=== PATIENT | female | born 1935 | race Caucasian/White ===

== ENCOUNTER 2017-03-26 08:02 | Inpatient (IN) ==
--- NOTE | 2017-03-26 08:55 | Emergency Department Note ---
Arrival - Arrival Chief Complaint: Extremity Problem Stated Complaint: right hip/groin area pain/low back pain ED Nursing Triage Note: pt saw dr pollack about a week ago for a shot in the knee. pt wwas told if she had pain in the groin to call him. pt states pain got really bad last night and pain pills are not helping Mode of Arrival: Wheelchair Limitations: No Limitations Source: Patient, Family - History of Present Illness HPI Narrative: Patient is a 81-year-old white female who underwent an injection last week by Dr. Pollack's office. She was instructed that if she began to have right hip pain that she was to call Dr. Pollack's office. She began having right hip pain but did not call Dr. Santamaria's office she simply came to the emergency department. Patient complains of difficulty moving her lower extremities. She also complains of some abdominal pain and low back pain. She is routinely followed by pain management. She denies any chills or fever, nausea or vomiting , melena, hematochezia, or hematemesis. Patient has had some difficulty getting out of the chair to the bed. She has difficulty with lower extremity movement. Onset (ago): day(s) (2) Consistency: constant Severity: moderate Allergies/Adverse Reactions: Allergies Allergy/AdvReac Type Severity Reaction Status Date / Time Erythromycin Base Allergy Unknown/Unable Verified 03/26/17 08:12 to obtain Penicillins Allergy Unknown/Unable Verified 03/26/17 08:12 to obtain Review of System - Review of System 12 point system: reviewed and no additional remarkable complaints except as stated Medical,Surgical,& Family Hx - Medical History Cardio: History of: Hypertension Musculoskeletal: History of: Musculoskeletal Problems (arthritis) - Social History Smoking Status: Never smoker Frequency of Alcohol Use: None Type of Drug Use: None Exam Vital Signs: Vital Signs Temperature 96.1 F L 03/26/17 08:51 Pulse Rate 78 03/26/17 10:00 Respiratory Rate 20 03/26/17 10:00 Blood Pressure 92/58 03/26/17 10:00 O2 Sat by Pulse Oximetry 96 03/26/17 10:00 GENERAL: This is a well-nourished well-developed white female in no apparent distress. VITAL SIGNS: Reviewed SKIN: Skin is warm and dry. No rash. EXTREMITIES: Patient has full range of motion without tenderness. There is no pedal edema. Range of motion the right hip without pops clicks or crepitus. NEUROLOGIC: Awake alert and oriented 4. Cranial nerves II through XII are grossly intact. Motor is 5 over 5 in all extremities bilaterally. Course - Consultations Consultation #1: Discussed with Dr. Winter. Patient will be admitted to his service. Initial orders written for him. He will assume care upon patient's arrival to [facility]. Time: 10:31 Results - Labs CBC & BMP: 03/26/17 09:25 03/26/17 09:25 Lab Results: I have reviewed the patients labs Labs: Laboratory Tests 03/26/17 09:24 Urine pH 5.0 Ur Specific [place] 1.010 Urine Leukocytes Large H Urine WBC 708 - Diagnostic Findings Procedure: X-ray: image reviewed by me (CT of the thoracic spine: Multilevel DDD without any evidence of cord compression. CT lumbar spine: Multilevel DDD without any evidence of cord compression.) Disposition Clinical Impression: Right hip pain following injection, Bilateral leg weakness, Acute renal failure , UTI (urinary tract infection), Chronic low back pain Case discussed with: patient, patient's family Disposition: Still a Patient Condition: Stable Additional Instructions: Patient is to go to Dr. Santamaria's office. March 28 @12:30. Referrals: Lupillo Pollack Jr., MD [Physician] - 03/28/17 12:30 pm Time of Disposition: 08:55
[2017-03-26] MEDS ORDERED: SODIUM CHLORIDE 0.9% 1,000 ML IV STA (09:10)
[2017-03-26 09:40] LABS: Basophils # 0.1 10*3/uL (0.0-0.2); Basophils % 0.2 % (0.0-0.8); Eosinophils % 0.1 % (0.00-10.9); Hematocrit 37.5 VOL% (35.7-47.0); Hemoglobin 12.4 GM/DL (12.0-16.0); Immature Granulocytes % 4.9 %; Immature Granulocytes Absolute 1.11 #; Lymphocytes # 1.7 10*3/uL (1.4-4.0); Lymphocytes % 7.4 % (21.3-54.2); Mean Corpuscular HGB Conc 33.1 GM/DL (32-36); Mean Corpuscular Hemoglobin 31 PG (27-34); Mean Corpuscular Volume 93.1 FL (87-102); Mean Platelet Volume 10.8 FL (9.6-12.0); Monocytes # 0.3 10*3/uL (0.11-0.8); Monocytes % 1.3 % (1.7-12.7); Neutrophils # 19.3 10*3/uL (1.4-7.4); Neutrophils % 86.1 % (38.7-73.9); Platelet Count 157 T/CUMM (130-400); Red Blood Count 4.03 MC/CUMM (3.8-5.5); Red Cell Distribution Width 14.7 % (9.3-17.3); White Blood Count 22.4 T/CUMM (4-12)
[2017-03-26 10:00] LABS: Band Neutrophils 11 % (0-10); Lymphocytes 6 % (20-55); Metamyelocytes 2 %; Segmented Neutrophils 76 % (50-85); Total Cells Counted 100
--- NOTE | 2017-03-26 10:00 | CT Report ---
CT thoracic spine wo con Indication: Back pain Comparison: None Technique: Multiple axial tomographic images of the thoracic spine were obtained without the use of intravenous contrast. Coronal and sagittal reformatted images provided. Findings: Anterior fusion hardware noted at C6-7. Posterior facet arthropathy of the lower cervical spine. 1 mm anterolisthesis of C7 upon T1 and T1 upon T2. Thoracic vertebral body heights and alignment are otherwise maintained. There is minimal scattered degenerative change without convincing spinal canal or neuroforaminal narrowing within the thoracic region. Atherosclerotic calcifications within the coronary arteries and great vessels. Bilateral apical scarring and mild emphysematous change. IMPRESSION: No convincing CT evidence of acute injury involving the osseous thoracic spine. Other/detailed findings as above. The CT exam was performed using one or more of the following dose reduction techniques: Automated exposure control, adjustment of the mA and/or kV according to patient size, or use of iterative reconstruction technique. PROCEDURE INTERPRETED AT [facility] DEPARTMENT OF RADIOLOGY Final Report Signed by: Dr John Boone
[2017-03-26 10:01] LABS: Hypochromasia 1+; Microcytosis Slight; Platelet Estimate Adequate
--- NOTE | 2017-03-26 10:02 | CT Report ---
Exam: CT lumbar spine without contrast Date: 03/26/2017 Comparison: Lumbar spine x-ray 09/14/2013, CT abdomen pelvis 04/15/2013 Reason: Back pain, history of degenerative disc disease Technique: Axial images of the lumbar spine were obtained without the use of contrast. Sagittal reformatted images were also acquired. Total DLP is 808.70 mGy*cm. Findings: Straightening of the lumbar spine. Progressive sclerosis and osteophytes with disc space narrowing at L4-L5. Chronic appearing Schmorl's nodes with no acute fracture. Vascular calcifications with prior AAA repair. Incomplete evaluation the aorta which measures 31 mm in transverse diameter. Right hydronephrosis with dilatation of the visualized right ureter measuring 14 mm in diameter. Incomplete evaluation of the ureter. Right perinephric fluid and soft tissue stranding identified. At T12-L1, no spinal canal stenosis or neuroforaminal narrowing is identified. At L1-L2, no spinal canal stenosis or neuroforaminal narrowing is identified. At L2-L3, minimal disc bulging with no spinal stenosis or foraminal stenosis. Degenerative changes in the facet joints. At L3-L4, diffuse osteophyte/disc complex which compresses the thecal sac and extends posterior laterally bilaterally. Minimal spinal stenosis and bilateral foraminal size. Degenerative changes in the facet joints. At L4-L5, diffuse osteophyte/disc complex which compresses the thecal sac and extends posterior laterally bilaterally. Minimal spinal stenosis with minimal to moderate bilateral foraminal stenosis. Degenerative changes in the facet joints. At L5-S1, diffuse osteophyte/disc complex which contacts the thecal sac. No spinal stenosis or foraminal stenosis. Degenerative changes in the facet joints. Impression: No acute fracture. Multilevel DDD as above noted. Incomplete evaluation the aorta with prior AAA repair. The aorta measures approximately 31 mm in transverse diameter with no evidence definite leakage. Significant right hydronephrosis with incomplete evaluation of the right ureter. Follow-up CT may be helpful for further evaluation. This CT exam was performed using one or more of the following dose reduction techniques: Automated exposure control, adjustment of the MA and/or KV according to patient size, or use of iterative reconstruction technique. PROCEDURE INTERPRETED AT [facility] DEPARTMENT OF RADIOLOGY Final Report Signed by: Dr. Kamini Elizabeth
[2017-03-26 10:04] LABS: Apearance,Urine CLOUDY (Clear); Bacteria,Urine Many /HPF (Few); Bilirubin,Urine Negative (Negative); Blood, Urine Moderate mg/dL (Negative); Glucose,Urine (UA) Negative (Negative); Ketones,Urine Negative (Negative); Nitrite,Urine Negative (Negative); Protein,Urine 100 MG/DL; Squamous Epithelial Cell,Urine Occasional /HPF (0-10); Urine Urobilinogen < 2.0 EU/DL (0.2-1.0); WBC,Urine 708 /HPF (0-6)
[2017-03-26 10:06] LABS: Urine Color Dark Yellow (Yellow)
[2017-03-26 10:07] LABS: Albumin 2.8 G/DL (3.4-5.0); Bilirubin,Total 1.6 MG/DL (0.2-1.0); Calcium 7.9 MG/DL (8.5-10.1); Potassium 3.2 MMOL/L (3.5-5.1); Total Protein 7.6 G/DL (6.4-8.3)
[2017-03-26] MEDS ORDERED: LEVOFLOXACIN INJ 500 MG in PREMIX 1 EACH IV STA (10:21)
[2017-03-26] MEDS ORDERED: LEVOFLOXACIN INJ 100 ML IV ONE (10:41)
[2017-03-26] MEDS ORDERED: ACETAMINOPHEN 325 MG TABLET PO PRN (12:31)
[2017-03-26] MEDS ORDERED: SODIUM CHLORIDE 0.9% 1,000 ML IV SCH (13:00)
--- NOTE | 2017-03-26 14:39 | Ultrasound Report ---
Exam: US renal Bilateral Date: 03/26/2017 12:31 PM Comparison: 06/04/2013 Indication: Acute renal failure Technique:[Multiple transabdominal real-time scans were obtained of the kidneys and urinary bladder. Color-flow scans obtained. Ultrasound images were captured and stored.] Findings: Right kidney measures 88 x 52 x 45 mm compared to 86 x 48 x 44 mm. Left kidney measures 83 x 54 x 44 mm compared to 100 x 69 x 41 mm. Minimal right hydronephrosis. 14 mm midpole and 30 mm lower pole simple appearing left renal cysts. Bilateral ureteral jets are noted in the urinary bladder which measures 62 x 56 58 mm. No definite bladder mass identified. Impression: Persistent right and progressive left cortical loss. Inhomogeneous echogenicity which can be seen with medical renal disease. Minimal right hydronephrosis with persistent left renal cysts. No definite urinary bladder pathology noted. PROCEDURE INTERPRETED AT [facility] DEPARTMENT OF RADIOLOGY Final Report Signed by: Dr. Kamini Elizabeth
[2017-03-26] MEDS: MORPHINE ER 30 MG TABLET PO SCH (18:09)
[2017-03-26] MEDS: cloNIDine 0.1 MG TABLET PO SCH (18:10)
[2017-03-26] MEDS: LEVOFLOXACIN INJ 750 MG in PREMIX 1 EACH IV SCH (18:37)
[2017-03-26] MEDS: SODIUM CHLOR 0.9% KCL 20 MEQ 20 MEQ/1,000 ML BAG IV SCH (18:37)
[2017-03-26] MEDS: ONDANSETRON 4 MG/2 ML VIAL IV PRN (21:54)
[2017-03-26] MEDS: DOCUSATE SODIUM 100 MG CAPSULE PO SCH (21:54)
[2017-03-26] MEDS: ALPRAZolam 0.5 MG TABLET PO SCH (21:54)
[2017-03-26] MEDS: NAPROXEN EC 500 MG TABLET PO SCH (21:55)
[2017-03-26] MEDS: CARVEDILOL 6.25 MG TABLET PO SCH (21:55)
[2017-03-26] MEDS: PRIMIDONE 50 MG TABLET PO SCH (21:55)
[2017-03-27] MEDS: MORPHINE ER 30 MG TABLET PO SCH ×2 (05:13→21:19)
[2017-03-27] MEDS: SODIUM CHLOR 0.9% KCL 20 MEQ 20 MEQ/1,000 ML BAG IV SCH ×2 (05:14→15:56)
[2017-03-27 06:37] LABS: Basophils # 0.1 10*3/uL (0.0-0.2); Basophils % 0.3 % (0.0-0.8); Hematocrit 28.6 VOL% (35.7-47.0); Immature Granulocytes % 11.2 %; Immature Granulocytes Absolute 4.18 #; Lymphocytes # 1.6 10*3/uL (1.4-4.0); Lymphocytes % 4.4 % (21.3-54.2); Mean Corpuscular HGB Conc 32.5 GM/DL (32-36); Mean Corpuscular Hemoglobin 31 PG (27-34); Mean Corpuscular Volume 93.8 FL (87-102); Monocytes # 1.7 10*3/uL (0.11-0.8); Monocytes % 4.5 % (1.7-12.7); Neutrophils # 29.8 10*3/uL (1.4-7.4); Neutrophils % 79.6 % (38.7-73.9); Red Cell Distribution Width 15.4 % (9.3-17.3)
[2017-03-27 07:10] LABS: Albumin 2.1 G/DL (3.4-5.0); Bilirubin,Total 0.8 MG/DL (0.2-1.0); Calcium 6.3 MG/DL (8.5-10.1); Calcium 6.4 MG/DL (8.5-10.1); Free T4 (Free Thyroxine) 1.57 NG/DL (0.76-1.46); Hemoglobin 9.3 GM/DL (12.0-16.0); Magnesium 1.1 MG/DL (1.8-2.4); Osmolality,Calculated 275.1 MOS/KG (273-304); Osmolality,Calculated 277.1 MOS/KG (273-304); Potassium 4.5 MMOL/L (3.5-5.1); Potassium 4.8 MMOL/L (3.5-5.1); Red Blood Count 3.05 MC/CUMM (3.8-5.5); Risk Ratio 2.56; Thyroid Stimulating Hormone 2.64 uIU/ml (0.358-3.74); Total Protein 5.5 G/DL (6.4-8.3); VLDL CHOLESTEROL 43.2 MG/DL; White Blood Count 37.4 T/CUMM (4-12)
[2017-03-27 07:11] LABS: Platelet Count 114 T/CUMM (130-400)
[2017-03-27 07:20] LABS: Anisocytosis 1+; Band Neutrophils 25 % (0-10); Lymphocytes 2 % (20-55); Macrocytosis 1+; Metamyelocytes 6 %; Platelet Estimate Decreased; Segmented Neutrophils 64 % (50-85); Total Cells Counted 100
--- NOTE | 2017-03-27 08:23 | Family Practice History&Phys ---
Assessment and Plan (1) Acute renal failure Status: Acute Assessment and plan: Patient's creatinine has gone from 1.04 to 3.1 since November. Have consulted nephrology and will order a abdominal CT to make sure that there is no obstruction causing the renal insufficiency Current Visit: Yes (2) UTI (urinary tract infection) Status: Acute Assessment and plan: Patient appears to have an acute urinary tract infection. I have obtained a urine C&S as well as blood cultures. I started on a renal dose of Levaquin for empiric coverage. Current Visit: Yes (3) right ureteral obstruction Status: Acute Current Visit: Yes (4) Chronic low back pain Status: Chronic Assessment and plan: Patient has had chronic ongoing back pain and radicular pain. He is treated by Dr. Mitchell at the pain clinic Current Visit: Yes (5) previous renal calculi Status: Chronic Assessment and plan: No active stone noted at present, has right hydronephrosis Current Visit: Yes (6) Bilateral leg weakness Status: Chronic Assessment and plan: This appears to be chronic in nature. She is followed at the pain clinic and patient states that there has been some progressive weakness in lower extremities but no acute change. We will consult Dr. Mitchell and let him decide if he needs a current MRI. CT of the lumbar spine did not reveal any acute changes Current Visit: Yes (7) peripheral vascular disease Status: Chronic Assessment and plan: Stable at present Current Visit: Yes (8) chronic obstructive pulmonary disease Status: Chronic Assessment and plan: Stable at present Current Visit: Yes (9) obstructive sleep apnea Status: Chronic Assessment and plan: Stable on present treatment Current Visit: Yes (10) essential tremor Status: Chronic Assessment and plan: Tremor has been fairly stable on present meds Current Visit: Yes (11) history DVT Status: Chronic Assessment and plan: Stable at present Current Visit: Yes (12) Hypertension Status: Chronic Assessment and plan: Blood pressure has been stable on present medications Current Visit: Yes History of Present Illness Chief complaint: Abdominal pain and back pain History of present illness: Ms. Kingston is a 81 year old female 81-year-old white female well known to me seen in emergency room complaining of onset of lower abdominal pain with severe back pain and weakness in her lower extremities. She is being treated at the pain clinic by Dr. Mitchell for chronic back pain. Emergency room physician felt that she had significant weakness in her lower extremities but patient and feels that the weakness is been present for some time. CT of the lumbar spine reveal no acute changes. She feels she has some weakness in her lower extremities this a.m. but feels that it has not changed in the last 6-[address] Mitchell is done frequent procedures on her back. Main complaint this a.m. is some lower abdominal pain and bloating. She has passed flatus but states that her abdomen is bloated in the lower quadrant. Her lab on admission revealed a WBC of 22,400 but patient had received a steroid injection to her right hip 1 week ago. Actually is increased to 37,400 this a.m. Hemoglobin is 9 3 hematocrit is 28.3 which is decreased from admission. She was also noted to have a creatinine on admission of 2.9 which is increased to 3.1 this a.m. recent lab in November her creatinine was 1.04. She was noted to have a right hydronephrosis on lumbar CT that her renal ultrasound did not comment on the hydronephrosis. She does have findings consistent with a urinary tract infection but could also be present was a renal calculi on the right side. Patient has had several episodes of nausea vomiting during the night but no nausea this a.m. Her abdomen is soft flat with active bowel sounds. Some diffuse hypogastric tenderness negative CVA tenderness. In view of history patient was admitted for further evaluation therapy. Had initially planned to do an MRI today of her lumbar spine but after reviewing her history will consult Dr. Mitchell and let him decide if MRI as needed. I plan to proceed with workup for abdominal complaints. Home Medications Medication Instructions Recorded Confirmed Type ALPRAZolam [Alprazolam] 2 mg PO BEDTIME 03/26/17 03/26/17 History Amlodipine Besylate/Benazepril 1 each PO QAM 03/26/17 03/26/17 History [Amlodipine-Benazepril 10-20 mg] Carvedilol [Carvedilol] 6.25 mg PO BID 03/26/17 03/26/17 History Donepezil HCl [Donepezil HCl] 1 mg PO QAM 03/26/17 03/26/17 History Furosemide [Furosemide] 4 mg PO QAM 03/26/17 03/26/17 History Hydrocodone/Acetaminophen [[place] 1 each PO TID PRN 03/26/17 03/26/17 History 10-325 Tablet] Morphine Sulfate [Morphine Sulfate 30 mg PO Q12H 03/26/17 03/26/17 History ER] Omeprazole [Omeprazole] 40 mg PO QAM 03/26/17 03/26/17 History Primidone [Primidone] 100 mg PO TID 03/26/17 03/26/17 History RX: Aspirin EC Tab 325 mg PO QAM 03/26/17 03/26/17 History RX: Estradiol Tab [Estrace Tab] 2 mg PO QAM 03/26/17 03/26/17 History RX: Naproxen EC [EC Naprosyn] 500 mg PO BID 03/26/17 03/26/17 History cloNIDine TAB [Catapres Tab] 0.1 mg PO QAM 03/26/17 03/26/17 History cloNIDine TAB [Catapres Tab] 0.2 mg PO QPM 03/26/17 03/26/17 History Allergies Allergy/AdvReac Type Severity Reaction Status Date / Time Erythromycin Base Allergy Unknown/Unable Verified 03/26/17 08:12 to obtain Penicillins Allergy Unknown/Unable Verified 03/26/17 08:12 to obtain Medical,Surgical,& Family Hx - Medical History Cardio: History of: Hypertension, PVD Endocrine: History of: Dyslipidemia Rheumatology: History of;: Rheumatological Problems Respiratory: History of: COPD Genitourinary: History of: Kidney Stones Gastrointestinal: History of: GERD Musculoskeletal: History of: Back/Neck Problems, Degenerative Disk Disease, Musculoskeletal Problems (arthritis) Hematology: No history of: Blood Transfusion Reaction Other: History of: Miscellaneous Medical Problems (hist. DVT, restless leg syndrome, obstructive sleep apnea, essential tremor) - Surgical History HEENT Surgeries: Surgical HX of: Eye Surgery (catracts) Abdominal Surgeries: Surgical HX of: Abdominal Surgery (hist, abdomenal surgery, gallbladder), Appendectomy Reproductive Surgeries: Surgical HX of;: Breast Surgery, Hysterectomy, Tubal Ligation Orthopedic Surgeries: Surgical HX of;: Orthopedic Surgery (arthroscopic both knees) - Family History Family History: Reports;: Family Hypertension Denies;: Family Stroke - Social History Smoking Status: Former smoker Have you smoked in the last 12 months: No Frequency of Alcohol Use: None Type of Drug Use: None Marital Status: Lives With:: Spouse Exam - Constitutional Vitals: Period Temp Pulse Resp BP Sys/[place] Pulse Ox Last 24 Hr 96.1 F-97.5 F 75-99 15-24 79-121/37-72 96-100 General appearance: mild distress - Head Head exam: Present: normal inspection - Eye Pupils: Present: JESSE - ENT ENT exam: Present: normal exam - Neck Neck exam: Present: normal inspection - Respiratory Respiratory exam: Present: clear to auscultation bilaterally - Cardiovascular Cardiovascular exam: Present: irregular rhythm - GI/Abdominal GI/Abdominal exam: Present: hyperactive bowel sounds, tenderness, soft - Extremities Exam Extremities exam: Present: full ROM - Back Exam Back exam: Present: muscle spasm, vertebral tenderness, other (Diffuse tenderness over the entire lumbar region the spine) - Neurological Exam Neurological exam: Present: alert - Psychiatric Psychiatric exam: Present: normal affect - Skin Skin exam: Present: normal color Results - Labs CBC & BMP: 03/27/17 05:53 03/27/17 05:53
[2017-03-27] MEDS ORDERED: NON-FORMULARY MEDICATION (Omeprazole [Omeprazole] 40 MG) PO SCH (09:00)
[2017-03-27] MEDS ORDERED: DONEPEZIL 10 MG TABLET PO SCH (09:00)
[2017-03-27] MEDS: ONDANSETRON 4 MG/2 ML VIAL IV PRN ×3 (09:19→21:20)
[2017-03-27 10:41] LABS: Apearance,Urine Clear (Clear); Bacteria,Urine Many /HPF (Few); Blood, Urine Trace mg/dL (Negative); Glucose,Urine (UA) Negative (Negative); Hyaline Casts,Urine 5 /LPF (0-3); Ketones,Urine Negative (Negative); Mucus,Urine Occasional /LPF (Occasional); Nitrite,Urine Negative (Negative); Protein,Urine 100 MG/DL; RBC,Urine 1 /HPF (0-4); Squamous Epithelial Cell,Urine Few /HPF (0-10); WBC,Urine 3 /HPF (0-6)
[2017-03-27 10:42] LABS: Bilirubin,Urine Moderate mg/dL (Negative); Urine Color Dark Yellow (Yellow)
--- NOTE | 2017-03-27 12:31 | CT Report ---
Referring physician: Derick Winter EXAM: CT abdomen and pelvis without contrast DATE: 03/27/2017 COMPARISON: 04/15/2013, CT lumbar spine 03/26/2017 REASON: Generalized abdominal pain with right hydronephrosis TECHNIQUE: Axial images of the abdomen and pelvis were obtained without the use of contrast. Oral contrast given. Coronal and sagittal reformatted images were also provided. Total DLP is 401.30 mGy*cm. FINDINGS: The heart is minimally enlarged with cardiac fat pads and coronary artery calcifications. Chronic scarring in the lungs with progressive atelectasis/infiltration with groundglass opacities. The liver is normal in size with no masses or dilated ducts in patient with prior cholecystectomy. The spleen has an unremarkable appearance. Atrophic pancreas with unremarkable adrenal glands. Moderate right hydronephrosis with perinephric fluid/soft tissue stranding. The right ureter is dilated to the level of the upper sacrum with adjacent fluid/soft tissue density involving a 24 mm area. No renal or ureteral calculus is identified. Persistent left renal cysts with the largest measuring 31 mm compared to 29 mm in the lower pole. Prior AAA repair with the aorta measuring 32 mm in diameter compared to 29 mm on the previous exam. Arterial calcifications with no adjacent adenopathy. Mild gaseous distention of the stomach with no significant dilatation of the small bowel. Increased fecal material in the colon with no evidence of diverticulitis, appendicitis free air, or free fluid. Prior hysterectomy with no definite urinary bladder pathology noted. Degenerative changes are present. IMPRESSION: The heart is minimally enlarged with arterial calcifications including coronary artery calcifications. Progressive atelectasis/infiltration with somewhat indeterminate groundglass opacities at the visualized lung bases. Prior cholecystectomy and hysterectomy with atrophic pancreas. Moderate right hydronephrosis with transition zone in the upper sacral location. Adjacent fluid and soft tissue stranding which could be related to obstruction but is difficult to exclude a mass, developing fibrosis, or other pathology. No ureteral calculus is identified. Right retrograde pyelogram may be helpful for further evaluation. Larger probable left renal cysts. Increased fecal material in the colon. The CT exam was performed using one or more of the following dose reduction techniques: Automated exposure control and adjustment of the mA and/or kV according to patient size. PROCEDURE INTERPRETED AT [facility] DEPARTMENT OF RADIOLOGY Final Report Signed by: Dr. Kamini Elizabeth
--- NOTE | 2017-03-27 13:15 | Pain Management Consult Note ---
Assessment and Plan (1) Lumbar degenerative disc disease Problem details: 2-3 week history of increasing back and lower abdominal pain Status: Acute Assessment and plan: 03/27/2017. The patient is very pleasant 81-year-old female well-known to me and is a patient of mine. We treated her low back for lumbar facet arthropathy manage her medically for her lumbar spinal pain. She developed to 3 weeks ago increasing low back pain that radiated into the groin and lower abdominal abdomen bilaterally. She denies any injury. Is a throbbing aching discomfort. CT scan which are reviewed demonstrates degenerative changes and fairly marked collapse at the L4-5 level but no acute changes are seen. No compression fractures are noted. Moderate canal narrowing is present but not severe. At this point I do not think it MRI is medically necessary. Worry about potential of a GI or source of her pain. I will continue to follow with you. y Current Visit: Yes History of Present Illness Chief complaint: Low back and groin pain History of present illness: Ms. Kingston is a 81 year old female with a 2-3 week history of increasing low back and bilateral groin pain. The pain is worse with activity but it remains fairly constant. It interferes with sleep. Is a cramping aching pain. It is a new type of pain for her. She denies any injury. Home Medications Medication Instructions Recorded Confirmed Type ALPRAZolam [Alprazolam] 2 mg PO BEDTIME 03/26/17 03/26/17 History Amlodipine Besylate/Benazepril 1 each PO QAM 03/26/17 03/26/17 History [Amlodipine-Benazepril 10-20 mg] Aspirin EC Tab 325 mg PO QAM 03/26/17 03/26/17 History Carvedilol [Carvedilol] 6.25 mg PO BID 03/26/17 03/26/17 History Donepezil HCl [Donepezil HCl] 1 mg PO QAM 03/26/17 03/26/17 History Estradiol Tab [Estrace Tab] 2 mg PO QAM 03/26/17 03/26/17 History Furosemide [Furosemide] 4 mg PO QAM 03/26/17 03/26/17 History Hydrocodone/Acetaminophen [[place] 1 each PO TID PRN 03/26/17 03/26/17 History 10-325 Tablet] Morphine Sulfate [Morphine Sulfate 30 mg PO Q12H 03/26/17 03/26/17 History ER] Naproxen EC [EC Naprosyn] 500 mg PO BID 03/26/17 03/26/17 History Omeprazole [Omeprazole] 40 mg PO QAM 03/26/17 03/26/17 History Primidone [Primidone] 100 mg PO TID 03/26/17 03/26/17 History cloNIDine TAB [Catapres Tab] 0.1 mg PO QAM 03/26/17 03/26/17 History cloNIDine TAB [Catapres Tab] 0.2 mg PO QPM 03/26/17 03/26/17 History Allergies Allergy/AdvReac Type Severity Reaction Status Date / Time Erythromycin Base Allergy Unknown/Unable Verified 03/26/17 08:12 to obtain Penicillins Allergy Unknown/Unable Verified 03/26/17 08:12 to obtain Medical,Surgical,& Family Hx - Medical History Cardio: History of: Hypertension Musculoskeletal: History of: Musculoskeletal Problems (arthritis) Hematology: No history of: Blood Transfusion Reaction - Surgical History HEENT Surgeries: Surgical HX of: Eye Surgery (catracts) Abdominal Surgeries: Surgical HX of: Abdominal Surgery (hist, abdomenal surgery, gallbladder), Appendectomy Reproductive Surgeries: Surgical HX of;: Breast Surgery, Hysterectomy, Tubal Ligation - Family History Family History: Reports;: Family Hypertension Denies;: Family Stroke - Social History Smoking Status: Never smoker Frequency of Alcohol Use: None Type of Drug Use: None - Constitutional Constitutional: Present: daytime sleepiness - Cardiovascular Cardiovascular: Present: dyspnea on exertion - Gastrointestinal Gastrointestinal: Present: constipation - Genitourinary Genitourinary: Present: flank pain - Musculoskeletal Musculoskeletal: Present: arthralgias, back pain, joint swelling - Neurological Neurological: Present: paresthesias - Endocrine Endocrine: Present: heat intolerance Exam - Constitutional Vitals: Period Temp Pulse Resp BP Sys/[place] Pulse Ox Last 24 Hr 96.8 F-97.5 F 74-99 15-20 95-120/43-55 97-100 General appearance: no acute distress, over weight - Eye Eye exam: Present: EOMI - Neck Neck exam: Present: normal inspection - Respiratory Respiratory exam: Present: clear to auscultation bilaterally - Cardiovascular Cardiovascular exam: Present: RRR - GI/Abdominal GI/Abdominal exam: Present: normal bowel sounds - Back Exam Back exam: Present: vertebral tenderness - Neurological Exam Neurological exam: Present: alert, oriented X3, CN II-XII intact, motor sensory deficit (Slight weakness right foot). Absent: reflexes normal - Skin Skin exam: Present: normal color Results - Labs CBC & BMP: 03/27/17 05:53 03/27/17 05:53 Specialty Discharge - Follow Up or Referrals Follow up with: Lupillo Pollack Jr., MD [Physician] - 03/28/17 12:30 pm
[2017-03-27] MEDS: ESTRADIOL 2 MG TABLET PO SCH (13:44)
[2017-03-27] MEDS: PRIMIDONE 50 MG TABLET PO SCH ×3 (13:44→21:19)
--- NOTE | 2017-03-27 13:45 | Nephrology Consult Note ---
History of Present Illness Chief complaint: ARF History of present illness: Ms. Kingston is a 81 year old female who presented with lower abdominal pain which radiates to her lumbar spine. She has a history of chronic low back pain. She has been followed by Dr. Mitchell. At the time of presentation, she was noted to have renal insufficiency and pyuria. She reports being unable to completely empty her bladder recently. She denies dysuria or hematuria. She has a history of nephrolithiasis with multiple stones in the remote past. She has had no recent stones. She has had hypertension for many years. Blood pressure was low on admission. Home Medications Medication Instructions Recorded Confirmed Type ALPRAZolam [Alprazolam] 2 mg PO BEDTIME 03/26/17 03/26/17 History Amlodipine Besylate/Benazepril 1 each PO QAM 03/26/17 03/26/17 History [Amlodipine-Benazepril 10-20 mg] Aspirin EC Tab 325 mg PO QAM 03/26/17 03/26/17 History Carvedilol [Carvedilol] 6.25 mg PO BID 03/26/17 03/26/17 History Donepezil HCl [Donepezil HCl] 1 mg PO QAM 03/26/17 03/26/17 History Estradiol Tab [Estrace Tab] 2 mg PO QAM 03/26/17 03/26/17 History Furosemide [Furosemide] 4 mg PO QAM 03/26/17 03/26/17 History Hydrocodone/Acetaminophen [[place] 1 each PO TID PRN 03/26/17 03/26/17 History 10-325 Tablet] Morphine Sulfate [Morphine Sulfate 30 mg PO Q12H 03/26/17 03/26/17 History ER] Naproxen EC [EC Naprosyn] 500 mg PO BID 03/26/17 03/26/17 History Omeprazole [Omeprazole] 40 mg PO QAM 03/26/17 03/26/17 History Primidone [Primidone] 100 mg PO TID 03/26/17 03/26/17 History cloNIDine TAB [Catapres Tab] 0.1 mg PO QAM 03/26/17 03/26/17 History cloNIDine TAB [Catapres Tab] 0.2 mg PO QPM 03/26/17 03/26/17 History Allergies Allergy/AdvReac Type Severity Reaction Status Date / Time Erythromycin Base Allergy Unknown/Unable Verified 03/26/17 08:12 to obtain Penicillins Allergy Unknown/Unable Verified 03/26/17 08:12 to obtain Medical,Surgical,& Family Hx - Medical History Cardio: History of: Hypertension Genitourinary: History of: Kidney Stones Musculoskeletal: History of: Musculoskeletal Problems (arthritis) Hematology: No history of: Blood Transfusion Reaction - Surgical History HEENT Surgeries: Surgical HX of: Eye Surgery (catracts) Abdominal Surgeries: Surgical HX of: Abdominal Surgery (hist, abdomenal surgery, gallbladder), Appendectomy Reproductive Surgeries: Surgical HX of;: Breast Surgery, Hysterectomy, Tubal Ligation - Family History Family History: Reports;: Family Hypertension Denies;: Family Stroke - Social History Smoking Status: Never smoker Frequency of Alcohol Use: None Type of Drug Use: None Review of Systems 12 point system: reviewed and no additional remarkable complaints except as stated Exam - Vital Signs Vital signs: Period Temp Pulse Resp BP Sys/[place] Pulse Ox Last 24 Hr 96.8 F-97.5 F 74-99 15-20 95-120/43-55 97-100 Exam: Gen.: Alert and oriented x3. ENT: Pupils equal round reactive to light. EOMs intact. Mucous membranes moist. Neck: Supple. No JVD or bruit. Cardiovascular: Regular rate and rhythm. No murmur rub or gallop Lungs: Clear Abdomen: Soft. Nontender. Mild distention Extremities: No edema Results - Labs CBC & BMP: 03/27/17 05:53 03/27/17 05:53 Assessment and Plan (1) Acute renal failure Status: Acute Assessment and plan: 81-year-old woman with: * ARF. Baseline creatinine 1.26 Nov 2016. She has been relatively hypotensive since admission. Blood pressure medications will be held. ARB is among these. Naprosyn discontinued. She also has right hydronephrosis. Etiology undetermined. She has a history of nephrolithiasis but no stones are visible on CT. She did report difficulty emptying her bladder prior to admission. Urology will be asked to evaluate. * Pyuria. Urine culture pending. Repeat urinalysis today is markedly improved. She is on Levaquin * Hypertension. As noted above her blood pressure is now low. Antihypertensives held * Chronic back pain. Current Visit: Yes (2) Hydronephrosis, right Status: Acute Current Visit: Yes (3) Hypertension Status: Acute Current Visit: Yes (4) Lumbar degenerative disc disease Problem details: 2-3 week history of increasing back and lower abdominal pain Status: Acute Current Visit: Yes (5) UTI (urinary tract infection) Status: Acute Current Visit: Yes Specialty Discharge - Follow Up or Referrals Follow up with: Lupillo Pollack Jr., MD [Physician] - 03/28/17 12:30 pm
[2017-03-27] MEDS: ASPIRIN EC 325 MG TABLET PO SCH (13:47)
[2017-03-27] MEDS: PANTOPRAZOLE 40 MG TABLET PO SCH (13:47)
[2017-03-27] MEDS: DOCUSATE SODIUM 100 MG CAPSULE PO SCH ×2 (13:48→21:20)
[2017-03-27] MEDS: NAPROXEN EC 500 MG TABLET PO SCH (14:09)
[2017-03-27] MEDS: cloNIDine 0.1 MG TABLET PO SCH ×2 (14:10→20:02)
[2017-03-27] MEDS: CARVEDILOL 6.25 MG TABLET PO SCH ×2 (14:11→21:00)
[2017-03-27] MEDS: FUROSEMIDE 40 MG TABLET PO SCH (14:11)
[2017-03-27] MEDS: DONEPEZIL 10 MG TABLET PO SCH (14:57)
--- NOTE | 2017-03-27 15:15 | Urology Consultation ---
History of Present Illness - Data of Consult Consult date: 03/27/17 - Consult Narrative History of present illness: Ms. Kingston is a 81 year old female This 81-year-old white female has been seen in my office previously. She has a past history of stones. She was complaining of right hip pain in the emergency room and was found to have an elevated creatinine. The patient has chronic low back pain which she describes as bilateral in the low back and she goes to the pain clinic for this but she does not have any flank pain. She is got a low residual urine on bladder scan her renal ultrasound shows mild right hydronephrosis and a CT of the abdomen and pelvis shows mild to moderate right hydronephrosis with ureteral dilatation down to the area of the SI joint but no definite stone is seen. She has pyuria on urinalysis and urine culture preliminary results is positive. She is on antibiotics on physical examination there is no CVA tenderness the etiology of the right hydronephrosis is is undetermined at this point. I am going recommend a cystoscopic exam with a right retrograde pyelogram and possible right ureteral stent to see if this will improve her renal function. We will plan this tomorrow if okay medically CC: Derick Winter, DO - Home Medications and Allergies Home Medications: Home Medications Medication Instructions Recorded Confirmed Type ALPRAZolam [Alprazolam] 2 mg PO BEDTIME 03/26/17 03/26/17 History Amlodipine Besylate/Benazepril 1 each PO QAM 03/26/17 03/26/17 History [Amlodipine-Benazepril 10-20 mg] Aspirin EC Tab 325 mg PO QAM 03/26/17 03/26/17 History Carvedilol [Carvedilol] 6.25 mg PO BID 03/26/17 03/26/17 History Donepezil HCl [Donepezil HCl] 1 mg PO QAM 03/26/17 03/26/17 History Estradiol Tab [Estrace Tab] 2 mg PO QAM 03/26/17 03/26/17 History Furosemide [Furosemide] 4 mg PO QAM 03/26/17 03/26/17 History Hydrocodone/Acetaminophen [[place] 1 each PO TID PRN 03/26/17 03/26/17 History 10-325 Tablet] Morphine Sulfate [Morphine Sulfate 30 mg PO Q12H 03/26/17 03/26/17 History ER] Naproxen EC [EC Naprosyn] 500 mg PO BID 03/26/17 03/26/17 History Omeprazole [Omeprazole] 40 mg PO QAM 03/26/17 03/26/17 History Primidone [Primidone] 100 mg PO TID 03/26/17 03/26/17 History cloNIDine TAB [Catapres Tab] 0.1 mg PO QAM 03/26/17 03/26/17 History cloNIDine TAB [Catapres Tab] 0.2 mg PO QPM 03/26/17 03/26/17 History Allergies/Adverse Reactions: Allergies Allergy/AdvReac Type Severity Reaction Status Date / Time Erythromycin Base Allergy Unknown/Unable Verified 03/26/17 08:12 to obtain Penicillins Allergy Unknown/Unable Verified 03/26/17 08:12 to obtain Medical,Surgical,& Family Hx - Medical History Cardio: History of: Hypertension Genitourinary: History of: Kidney Stones Musculoskeletal: History of: Musculoskeletal Problems (arthritis) Hematology: No history of: Blood Transfusion Reaction - Surgical History HEENT Surgeries: Surgical HX of: Eye Surgery (catracts) Abdominal Surgeries: Surgical HX of: Abdominal Surgery (hist, abdomenal surgery, gallbladder), Appendectomy Reproductive Surgeries: Surgical HX of;: Breast Surgery, Hysterectomy, Tubal Ligation - Family History Family History: Reports;: Family Hypertension Denies;: Family Stroke - Social History Smoking Status: Never smoker Frequency of Alcohol Use: None Type of Drug Use: None Exam - Constitutional Vitals: Period Temp Pulse Resp BP Sys/[place] Pulse Ox Last 24 Hr 96.8 F-97.5 F 74-99 15-20 95-120/43-55 97-100 Results - Labs CBC & BMP: 03/27/17 05:53 03/27/17 05:53 Specialty Discharge - Follow Up or Referrals Follow up with: Lupillo Pollack Jr., MD [Physician] - 03/28/17 12:30 pm
[2017-03-27] MEDS ORDERED: MAGNESIUM CHLORIDE 64 MG TABLET PO SCH (21:00)
[2017-03-27] MEDS: MAGNESIUM CHLORIDE 64 MG TABLET PO SCH (21:18)
[2017-03-27] MEDS: ALPRAZolam 0.5 MG TABLET PO SCH (21:20)
[2017-03-27] MEDS: POTASSIUM CHLORIDE INJ 10 MEQ in SODIUM CHLORIDE 0.45% 1,000 ML IV SCH (22:00)
[2017-03-28] MEDS: ONDANSETRON 4 MG/2 ML VIAL IV PRN (02:12)
[2017-03-28] MEDS: POTASSIUM CHLORIDE INJ 10 MEQ in SODIUM CHLORIDE 0.45% 1,000 ML IV SCH (05:28)
[2017-03-28 06:19] LABS: Basophils # 0.1 10*3/uL (0.0-0.2); Basophils % 0.3 % (0.0-0.8); Eosinophils % 0.1 % (0.00-10.9); Immature Granulocytes % 9.3 %; Immature Granulocytes Absolute 3.05 #; Lymphocytes # 2.1 10*3/uL (1.4-4.0); Lymphocytes % 6.5 % (21.3-54.2); Mean Corpuscular HGB Conc 32.1 GM/DL (32-36); Mean Corpuscular Hemoglobin 30 PG (27-34); Mean Corpuscular Volume 93.6 FL (87-102); Monocytes # 1.7 10*3/uL (0.11-0.8); Monocytes % 5.1 % (1.7-12.7); Neutrophils # 25.9 10*3/uL (1.4-7.4); Neutrophils % 78.7 % (38.7-73.9); Platelet Count 112 T/CUMM (130-400); Red Blood Count 2.99 MC/CUMM (3.8-5.5); Red Cell Distribution Width 15.4 % (9.3-17.3); White Blood Count 32.8 T/CUMM (4-12)
[2017-03-28 07:03] LABS: Albumin 2.1 G/DL (3.4-5.0); Bilirubin,Total 2.3 MG/DL (0.2-1.0); Calcium 6.4 MG/DL (8.5-10.1); Free T4 (Free Thyroxine) 1.74 NG/DL (0.76-1.46); Magnesium 1.2 MG/DL (1.8-2.4); Osmolality,Calculated 279.2 MOS/KG (273-304); Potassium 5.1 MMOL/L (3.5-5.1); Thyroid Stimulating Hormone 3.05 uIU/ml (0.358-3.74); Total Protein 5.6 G/DL (6.4-8.3)
[2017-03-28 07:11] LABS: Band Neutrophils 5 % (0-10); Giant Platelets Few; Hypochromasia 1+; Lymphocytes 6 % (20-55); Microcytosis Slight; Platelet Estimate Decreased; Segmented Neutrophils 87 % (50-85); Total Cells Counted 100
--- NOTE | 2017-03-28 07:56 | Family Practice Progress Note ---
Family Practice - PN: Subj Interval history: Patient states that she continues to have generalized malaise. States that she has had some intermittent dyspnea at times. Denies any cough. Denies shortness of breath the time of my evaluation. Her daily weight today is up 10 pounds which I doubt seriously. Her heart was regular rate and rhythm no murmurs Lungs are clear to auscultation at present. Abdomen is soft and nontender. A.m. labs revealed persistent elevated WBC at 32,800 the patient received a steroid injection to her hip last week. A.m. sodium is 134 with a potassium of 5.1. Her creatinine remains elevated at 3.2. She has a urinary tract in traction with gram-negative rods and C&S is pending presently has on empiric Levaquin. Patient is scheduled for a cystoscopic examination this a.m. by Dr. Concepcion. This is to evaluate the right hydronephrosis.. Hopefully there is some correctable obstruction that is causing her renal insufficiency. Will review cystoscopic results and labs later today. Exam (Progress Note) - Constitutional Vitals: Period Temp Pulse Resp BP Sys/[place] Pulse Ox Last 24 Hr 96.2 F-98.6 F 56-89 16-20 95-129/51-77 91-100 Results - Labs CBC & BMP: 03/28/17 05:40 03/28/17 05:40 Assessment and Plan (1) Acute renal failure Status: Acute Assessment and plan: Patient's creatinine has gone from 1.04 to 3.1 since November. Have consulted nephrology and will order a abdominal CT to make sure that there is no obstruction causing the renal insufficiency Current Visit: Yes (2) UTI (urinary tract infection) Status: Acute Assessment and plan: Patient appears to have an acute urinary tract infection. I have obtained a urine C&S as well as blood cultures. I started on a renal dose of Levaquin for empiric coverage. Current Visit: Yes (3) right ureteral obstruction Status: Acute Current Visit: Yes (4) Chronic low back pain Status: Chronic Assessment and plan: Patient has had chronic ongoing back pain and radicular pain. He is treated by Dr. Mitchell at the pain clinic Current Visit: Yes (5) previous renal calculi Status: Chronic Assessment and plan: No active stone noted at present, has right hydronephrosis Current Visit: Yes (6) Bilateral leg weakness Status: Chronic Assessment and plan: This appears to be chronic in nature. She is followed at the pain clinic and patient states that there has been some progressive weakness in lower extremities but no acute change. We will consult Dr. Mitchell and let him decide if he needs a current MRI. CT of the lumbar spine did not reveal any acute changes Current Visit: Yes (7) peripheral vascular disease Status: Chronic Assessment and plan: Stable at present Current Visit: Yes (8) chronic obstructive pulmonary disease Status: Chronic Assessment and plan: Stable at present Current Visit: Yes (9) obstructive sleep apnea Status: Chronic Assessment and plan: Stable on present treatment Current Visit: Yes (10) essential tremor Status: Chronic Assessment and plan: Tremor has been fairly stable on present meds Current Visit: Yes (11) history DVT Status: Chronic Assessment and plan: Stable at present Current Visit: Yes (12) Hypertension Status: Chronic Assessment and plan: Blood pressure has been stable on present medications Current Visit: Yes Specialty Discharge - Follow Up or Referrals Follow up with: Lupillo Pollack Jr., MD [Physician] - 03/28/17 12:30 pm
[2017-03-28] MEDS: SODIUM CHLORIDE 0.45% 1,000 ML IV SCH (08:35)
[2017-03-28] MEDS: CARVEDILOL 6.25 MG TABLET PO SCH ×2 (09:19→20:25)
[2017-03-28] MEDS: MAGNESIUM CHLORIDE 64 MG TABLET PO SCH ×2 (09:19→20:24)
[2017-03-28] MEDS: PANTOPRAZOLE 40 MG TABLET PO SCH (09:24)
[2017-03-28] MEDS: PRIMIDONE 50 MG TABLET PO SCH ×3 (09:24→20:25)
--- NOTE | 2017-03-28 11:35 | Nephrology Progress Note ---
Nephrology - PN: Subj Interval history: No shortness of breath. No nausea. She still has some pelvic discomfort. Exam (PN)-Nephrology - Vital Signs Vital signs: Period Temp Pulse Resp BP Sys/[place] Pulse Ox Last 24 Hr 96.2 F-98.6 F 56-89 16-20 95-129/51-77 91-100 Exam: Gen.: Alert and oriented x3. ENT: Pupils equal round reactive to light. EOMs intact. Mucous membranes moist. Neck: Supple. No JVD or bruit. Cardiovascular: Regular rate and rhythm. No murmur rub or gallop Lungs: Clear Abdomen: Soft. Nontender. Positive bowel sounds. No organomegaly Extremities: No edema - Lab 03/28/17 05:40 03/28/17 05:40 Most recent lab results Calcium 6.4 MG/DL (8.5-10.1) L 03/28/17 05:40 Magnesium 1.2 MG/DL (1.8-2.4) L 03/28/17 05:40 Assessment and Plan (1) Acute renal failure Status: Acute Assessment and plan: 81-year-old woman with: * ARF. Baseline creatinine 1.26 Nov 2016. Creatinine slightly higher today. Potassium higher today. Agree with discontinuation of supplement. * Right hydronephrosis. Agree with plans for cystoscopy with possible ureteral stent. * Pyuria. Urine culture pending. Repeat urinalysis today is markedly improved. She is on Levaquin * Hypertension. Antihypertensives held * Chronic back pain. Current Visit: Yes (2) Hydronephrosis, right Status: Acute Current Visit: Yes (3) Hypertension Status: Chronic Current Visit: Yes (4) Lumbar degenerative disc disease Problem details: 2-3 week history of increasing back and lower abdominal pain Status: Acute Current Visit: Yes (5) UTI (urinary tract infection) Status: Acute Current Visit: Yes Specialty Discharge - Follow Up or Referrals Follow up with: Lupillo Pollack Jr., MD [Physician] - 03/28/17 12:30 pm
--- NOTE | 2017-03-28 11:44 | XRay Report ---
XR chest 2V Date: 03/28/2017 7:50 AM History: Shortness of breath Comparison: 06/09/2013 Technique: PA and lateral chest Findings: The heart is minimally enlarged with minimally progressive diffuse parenchymal findings at the lung bases with persistent blunting of the left costophrenic angle. Stable mediastinum with degenerative changes. Prior cholecystectomy and anterior cervical fusion. Impression: Minimal cardiomegaly with chronic scarring. Minimal atelectasis/edema/infiltration at the lung bases with chronic blunting of the left costophrenic angle. PROCEDURE INTERPRETED AT [facility] DEPARTMENT OF RADIOLOGY Final Report Signed by: Dr. Kamini Elizabeth
[2017-03-28] MEDS ORDERED: PROPOFOL 200 MG/20 ML VIAL IV ONE (13:29)
[2017-03-28] MEDS ORDERED: ETOMIDATE 20 MG/10 ML VIAL IV ONE (13:29)
[2017-03-28] MEDS ORDERED: LIDOCAINE 2% 5 ML VIAL ONE (13:29)
--- NOTE | 2017-03-28 13:59 | Operative Note ---
Date of procedure: 03/28/17 Pre-op diagnosis: Right hydronephrosis Post-op diagnosis: same Procedure: Under an adequate preop medication including antibiotics the patient was taken to the cystoscopy room placed on the table in supine position. General anesthesia was administered and the patient was turned into the lithotomy position prepped and draped in the usual manner. A timeout procedure was done. The cystourethroscope was introduced into the bladder and the bladder was examined in routine fashion. There was a lot of amorphous debris in the bladder compatible with infection. No lesions were noted and the orifices were normal. A wedge catheter was placed in the right orifice and ureteral pyelogram showed a normal distal ureter with an acute obstruction in the mid ureter over the SI joint with marked hydronephrosis above this. The ureter was dilated but and I was not able to get dye to go to the renal pelvis. A floppy tip guidewire was then passed easily to the right renal pelvis and a 6 [place] by 24 cm double-J stent was passed over the guidewire without difficulty. The pull string was removed the guidewire was removed the bladder was drained the scope removed and a KUB showed good position of the stent. The patient tolerated procedure well and returned to the recovery room in good condition. Anesthesia: GETA Surgeon / Physician: Tyrel Concepcion Estimated blood loss: none Specimens: none sent Condition: stable Disposition: floor Results - Labs CBC & BMP: 03/28/17 05:40 03/28/17 05:40 Discharge Plan - Discharge Medications No Action Carvedilol [Carvedilol] 6.25 mg PO BID cloNIDine TAB [Catapres Tab] 0.1 mg PO QAM Hydrocodone/Acetaminophen [[place] 10-325 Tablet] 1 each PO TID PRN PRN Reason: Pain Primidone [Primidone] 100 mg PO TID Omeprazole [Omeprazole] 40 mg PO QAM Estradiol Tab [Estrace Tab] 2 mg PO QAM Amlodipine Besylate/Benazepril [Amlodipine-Benazepril 10-20 mg] 1 each PO QAM Donepezil HCl [Donepezil HCl] 1 mg PO QAM ALPRAZolam [Alprazolam] 2 mg PO BEDTIME Naproxen EC [EC Naprosyn] 500 mg PO BID cloNIDine TAB [Catapres Tab] 0.2 mg PO QPM Furosemide [Furosemide] 4 mg PO QAM Aspirin EC Tab 325 mg PO QAM Morphine Sulfate [Morphine Sulfate ER] 30 mg PO Q12H - Follow Up or Referral Follow Up: Lupillo Pollack Jr., MD [Physician] - 03/28/17 12:30 pm - Forms/Instructions
--- NOTE | 2017-03-28 14:01 | Urology Progress Note ---
Urology - PN: Subj Interval history: On retrograde pyelogram the patient has an acute area of obstruction in the right mid ureter over the SI joint. With normal ureter below this and a dilated ureter above. This corresponds to the abnormal retroperitoneal area seen on the CT scan and I suspect that the obstruction is from an extra ureteral retroperitoneal process. A double-J ureteral stent was placed without difficulty. Exam - Constitutional Vitals: Period Temp Pulse Resp BP Sys/[place] Pulse Ox Last 24 Hr 96.2 F-98.6 F 56-89 16-20 107-129/51-77 91-100 Results - Labs CBC & BMP: 03/28/17 05:40 03/28/17 05:40 Specialty Discharge - Follow Up or Referrals Follow up with: Lupillo Pollack Jr., MD [Physician] - 03/28/17 12:30 pm
--- NOTE | 2017-03-28 14:09 | Pain Management Progress Note ---
Assessment and Plan (1) Lumbar degenerative disc disease Problem details: 2-3 week history of increasing back and lower abdominal pain Status: Acute Assessment and plan: 03/28/2017. Patient continues to have similar complaints. For workup. I do not think that her knee pain is spinal in origin. I will be out for the next 4 days but please have the nursing staff call if there is any questions. n 03/27/2017. The patient is very pleasant 81-year-old female well-known to me and is a patient of mine. We treated her low back for lumbar facet arthropathy manage her medically for her lumbar spinal pain. She developed to 3 weeks ago increasing low back pain that radiated into the groin and lower abdominal abdomen bilaterally. She denies any injury. Is a throbbing aching discomfort. CT scan which are reviewed demonstrates degenerative changes and fairly marked collapse at the L4-5 level but no acute changes are seen. No compression fractures are noted. Moderate canal narrowing is present but not severe. At this point I do not think it MRI is medically necessary. Worry about potential of a GI or source of her pain. I will continue to follow with you. y Current Visit: Yes Pain - Subjective Interval history: Flank lower abdominal pain Exam - Constitutional Vitals: Period Temp Pulse Resp BP Sys/[place] Pulse Ox Last 24 Hr 96.2 F-98.6 F 56-89 16-20 107-129/51-77 91-100 Results - Labs CBC & BMP: 03/28/17 05:40 03/28/17 05:40 Specialty Discharge - Follow Up or Referrals Follow up with: Lupillo Pollack Jr., MD [Physician] - 03/28/17 12:30 pm
--- NOTE | 2017-03-28 14:25 | Fluoroscopy Report ---
FL retrograde pyelogram Indication: Intraoperative C-arm fluoroscopy. Comparison: None. Technique: A total of 4 images were obtained intraoperatively using C-arm fluoroscopy. Findings: Images were reviewed and deemed satisfactory by the operative physician. Total fluoroscopy time was 40 seconds. Impression: 1. C-arm usage as detailed. 03/28/2017 2:22 PM PROCEDURE INTERPRETED AT [facility] DEPARTMENT OF RADIOLOGY Final Report Signed by: Dr. Darrion Sampson
--- NOTE | 2017-03-28 14:26 | Anesthesia Post-Op ---
Anesthesia Post OP - Post Ansesthetic Evaluation Patient seen in post op: Yes Resp: within normal limits CV: within normal limits Mental: within normal limits Temp: within normal limits [id number]: within normal limits Nausea and Vomiting: within normal limits Pain: within normal limits
[2017-03-28] MEDS ORDERED: SEVOFLURANE 1 UNIT/15 MINUTE INH ONE (14:42)
[2017-03-28] MEDS ORDERED: fentaNYL 100 MCG/2 ML VIAL ONE (14:42)
[2017-03-28] MEDS: DONEPEZIL 10 MG TABLET PO SCH (15:43)
[2017-03-28] MEDS: DOCUSATE SODIUM 100 MG CAPSULE PO SCH (15:44)
[2017-03-28] MEDS: FUROSEMIDE 40 MG TABLET PO SCH (15:44)
[2017-03-28] MEDS: ESTRADIOL 2 MG TABLET PO SCH (15:44)
[2017-03-28] MEDS: ASPIRIN EC 325 MG TABLET PO SCH (15:44)
[2017-03-28] MEDS: MORPHINE ER 30 MG TABLET PO SCH ×2 (15:45→20:24)
[2017-03-28] MEDS: ENOXAPARIN 30 MG/0.3 ML SYRINGE SUBCUT SCH (15:46)
[2017-03-28] MEDS: ALPRAZolam 0.5 MG TABLET PO SCH (20:24)
[2017-03-28] MEDS: LEVOFLOXACIN INJ 750 MG in PREMIX 1 EACH IV SCH (20:25)
[2017-03-29] MEDS: SODIUM CHLORIDE 0.45% 1,000 ML IV SCH ×2 (04:19→11:03)
[2017-03-29] MEDS: DOCUSATE SODIUM 100 MG CAPSULE PO SCH ×3 (04:19→21:19)
[2017-03-29 06:01] LABS: Basophils # 0.1 10*3/uL (0.0-0.2); Basophils % 0.3 % (0.0-0.8); Eosinophils # 0.2 10*3/uL (0.0-0.87); Eosinophils % 0.8 % (0.00-10.9); Hematocrit 26.9 VOL% (35.7-47.0); Hemoglobin 8.8 GM/DL (12.0-16.0); Immature Granulocytes % 0.5 %; Immature Granulocytes Absolute 0.13 #; Lymphocytes # 1.8 10*3/uL (1.4-4.0); Mean Corpuscular HGB Conc 32.7 GM/DL (32-36); Mean Corpuscular Hemoglobin 30 PG (27-34); Mean Corpuscular Volume 93.1 FL (87-102); Monocytes # 0.7 10*3/uL (0.11-0.8); Monocytes % 2.9 % (1.7-12.7); Neutrophils # 22.6 10*3/uL (1.4-7.4); Neutrophils % 88.5 % (38.7-73.9); Platelet Count 113 T/CUMM (130-400); Red Blood Count 2.89 MC/CUMM (3.8-5.5); Red Cell Distribution Width 15.3 % (9.3-17.3); White Blood Count 25.5 T/CUMM (4-12)
[2017-03-29 06:36] LABS: Albumin 2.1 G/DL (3.4-5.0); Bilirubin,Total 1.5 MG/DL (0.2-1.0); Osmolality,Calculated 283.2 MOS/KG (273-304); Total Protein 5.7 G/DL (6.4-8.3)
[2017-03-29 06:47] LABS: Band Neutrophils 2 % (0-10); Eosinophils 2 % (0-10); Giant Platelets Few; Hypochromasia 1+; Lymphocytes 6 % (20-55); Platelet Estimate Decreased; Segmented Neutrophils 88 % (50-85); Total Cells Counted 100
[2017-03-29 06:48] LABS: Microcytosis Slight; Ovalocytes Slight
--- NOTE | 2017-03-29 08:06 | Urology Progress Note ---
Urology - PN: Subj Interval history: The patient's creatinine is down slightly post stent placement yesterday. Her urine culture is growing enterococcus that is sensitive to Levaquin. The patient has some symptoms related to the stent placement primarily bladder irritation. Hopefully the symptoms will improve over time. My plan going forward would be to next attempt a needle biopsy of the mass seen on CT scan in the area of the ureteral obstruction which may not be possible since this is over the SI joint which would prevent a posterior approach. If we cannot make a diagnosis with a needle biopsy then I would next recommend ureteroscopy to make sure this is not a primary ureteral problem and if this is negative then she may need exploration of this area. If a definitive diagnosis cannot be made another option would be to assume this is retroperitoneal fibrosis and give her a trial of medical management. Exam - Constitutional Vitals: Period Temp Pulse Resp BP Sys/[place] Pulse Ox Last 24 Hr 96.8 F-98.4 F 74-90 16-20 102-153/54-96 92-100 Results - Labs CBC & BMP: 03/29/17 05:23 03/29/17 05:23 Specialty Discharge - Follow Up or Referrals Follow up with: Lupillo Pollack Jr., MD [Physician] - 03/28/17 12:30 pm
[2017-03-29] MEDS: ESTRADIOL 2 MG TABLET PO SCH (09:27)
[2017-03-29] MEDS: CARVEDILOL 6.25 MG TABLET PO SCH ×2 (09:28→21:18)
[2017-03-29] MEDS: PANTOPRAZOLE 40 MG TABLET PO SCH (09:28)
[2017-03-29] MEDS: MORPHINE ER 30 MG TABLET PO SCH ×2 (09:28→21:18)
[2017-03-29] MEDS: ASPIRIN EC 325 MG TABLET PO SCH (09:28)
[2017-03-29] MEDS: DONEPEZIL 10 MG TABLET PO SCH (09:28)
[2017-03-29] MEDS: FUROSEMIDE 40 MG TABLET PO SCH (09:28)
[2017-03-29] MEDS: PRIMIDONE 50 MG TABLET PO SCH ×3 (09:28→21:18)
[2017-03-29] MEDS: MAGNESIUM CHLORIDE 64 MG TABLET PO SCH ×2 (09:28→21:18)
[2017-03-29] MEDS: ENOXAPARIN 30 MG/0.3 ML SYRINGE SUBCUT SCH (09:29)
--- NOTE | 2017-03-29 12:28 | Nephrology Progress Note ---
Nephrology - PN: Subj Interval history: She underwent cystoscopy with right ureteral stent placement yesterday. Urine output has increased. She denies shortness of breath. She still has some right flank pain Exam (PN)-Nephrology - Vital Signs Vital signs: Period Temp Pulse Resp BP Sys/[place] Pulse Ox Last 24 Hr 96.4 F-98.4 F 74-90 16-20 102-153/54-96 92-100 Exam: Gen.: Alert and oriented x3. ENT: Pupils equal round reactive to light. EOMs intact. Mucous membranes moist. Neck: Supple. No JVD or bruit. Cardiovascular: Regular rate and rhythm. No murmur rub or gallop Lungs: Clear Abdomen: Soft. Nontender. Positive bowel sounds. No organomegaly Extremities: No edema - Lab 03/29/17 05:23 03/29/17 05:23 Most recent lab results Calcium 7.0 MG/DL (8.5-10.1) L 03/29/17 05:23 Magnesium 1.2 MG/DL (1.8-2.4) L 03/28/17 05:40 Assessment and Plan (1) Acute renal failure Status: Acute Assessment and plan: 81-year-old woman with: * ARF. Baseline creatinine 1.26 Nov 2016. Renal function slightly better today * Right hydronephrosis. Status post right ureteral stent placement. Urine output improving * UTI. Continue Levaquin * Hypertension. Antihypertensives held * Chronic back pain. Current Visit: Yes (2) Hydronephrosis, right Status: Acute Current Visit: Yes (3) Hypertension Status: Chronic Current Visit: Yes (4) Lumbar degenerative disc disease Problem details: 2-3 week history of increasing back and lower abdominal pain Status: Acute Current Visit: Yes (5) UTI (urinary tract infection) Status: Acute Current Visit: Yes Specialty Discharge - Follow Up or Referrals Follow up with: Lupillo Pollack Jr., MD [Physician] - 03/28/17 12:30 pm
--- NOTE | 2017-03-29 15:00 | Family Practice Progress Note ---
Family Practice - PN: Subj Interval history: Patient states that she continues to have generalized malaise. States that she has had some intermittent dyspnea at times. Denies any cough. Denies shortness of breath the time of my evaluation. Her daily weight today is up 10 pounds which I doubt seriously. Her heart was regular rate and rhythm no murmurs Lungs are clear to auscultation at present. Abdomen is soft and nontender. A.m. labs revealed persistent elevated WBC at 32,800 the patient received a steroid injection to her hip last week. A.m. sodium is 134 with a potassium of 5.1. Her creatinine remains elevated at 3.2. She has a urinary tract in traction with gram-negative rods and C&S is pending presently has on empiric Levaquin. Patient is scheduled for a cystoscopic examination this a.m. by Dr. Concepcion. This is to evaluate the right hydronephrosis.. Hopefully there is some correctable obstruction that is causing her renal insufficiency. Will review cystoscopic results and labs later today. 03/29/17 - patient feels some better today main complaint is back pain. Patient had cystoscopic examination with placement of stent yesterday. Slight improvement in renal status today. Urine culture and one blood culture positive for an Enterobacter which is sensitive to present antibiotics. No new problems identified. We'll continue present evaluation and treatment Exam (Progress Note) - Constitutional Vitals: Period Temp Pulse Resp BP Sys/Hampton Pulse Ox Last 24 Hr 96.4 F-98.4 F 74-90 16-20 126-153/58-77 92-99 Results - Labs CBC & BMP: 03/29/17 05:23 03/29/17 05:23 Assessment and Plan (1) Acute renal failure Status: Acute Assessment and plan: Patient's creatinine has gone from 1.04 to 3.1 since November. Have consulted nephrology and will order a abdominal CT to make sure that there is no obstruction causing the renal insufficiency Current Visit: Yes (2) UTI (urinary tract infection) Status: Acute Assessment and plan: Patient appears to have an acute urinary tract infection. I have obtained a urine C&S as well as blood cultures. I started on a renal dose of Levaquin for empiric coverage. Current Visit: Yes (3) right ureteral obstruction Status: Acute Current Visit: Yes (4) Chronic low back pain Status: Chronic Assessment and plan: Patient has had chronic ongoing back pain and radicular pain. He is treated by Dr. Mitchell at the pain clinic Current Visit: Yes (5) previous renal calculi Status: Chronic Assessment and plan: No active stone noted at present, has right hydronephrosis Current Visit: Yes (6) Bilateral leg weakness Status: Chronic Assessment and plan: This appears to be chronic in nature. She is followed at the pain clinic and patient states that there has been some progressive weakness in lower extremities but no acute change. We will consult Dr. Mitchell and let him decide if he needs a current MRI. CT of the lumbar spine did not reveal any acute changes Current Visit: Yes (7) peripheral vascular disease Status: Chronic Assessment and plan: Stable at present Current Visit: Yes (8) chronic obstructive pulmonary disease Status: Chronic Assessment and plan: Stable at present Current Visit: Yes (9) obstructive sleep apnea Status: Chronic Assessment and plan: Stable on present treatment Current Visit: Yes (10) essential tremor Status: Chronic Assessment and plan: Tremor has been fairly stable on present meds Current Visit: Yes (11) history DVT Status: Chronic Assessment and plan: Stable at present Current Visit: Yes (12) Hypertension Status: Chronic Assessment and plan: Blood pressure has been stable on present medications Current Visit: Yes Specialty Discharge - Follow Up or Referrals Follow up with: Lupillo Pollack Jr., MD [Physician] - 03/28/17 12:30 pm
[2017-03-29] MEDS: ALPRAZolam 0.5 MG TABLET PO SCH (21:19)
[2017-03-30 04:41] LABS: Basophils % 0.2 % (0.0-0.8); Eosinophils # 0.2 10*3/uL (0.0-0.87); Eosinophils % 0.8 % (0.00-10.9); Hematocrit 27.2 VOL% (35.7-47.0); Hemoglobin 8.9 GM/DL (12.0-16.0); Immature Granulocytes % 0.5 %; Lymphocytes % 10.5 % (21.3-54.2); Mean Corpuscular HGB Conc 32.7 GM/DL (32-36); Mean Corpuscular Hemoglobin 30 PG (27-34); Mean Corpuscular Volume 91.3 FL (87-102); Mean Platelet Volume 12.4 FL (9.6-12.0); Monocytes # 0.9 10*3/uL (0.11-0.8); Monocytes % 4.6 % (1.7-12.7); Neutrophils # 15.8 10*3/uL (1.4-7.4); Neutrophils % 83.4 % (38.7-73.9); Platelet Count 106 T/CUMM (130-400); Red Blood Count 2.98 MC/CUMM (3.8-5.5); White Blood Count 18.9 T/CUMM (4-12)
[2017-03-30 05:16] LABS: Calcium 7.3 MG/DL (8.5-10.1); Osmolality,Calculated 281.2 MOS/KG (273-304); Potassium 4.4 MMOL/L (3.5-5.1)
[2017-03-30 06:10] LABS: Anisocytosis 1+; Platelet Estimate Adequate
[2017-03-30] MEDS: DONEPEZIL 10 MG TABLET PO SCH (08:57)
[2017-03-30] MEDS: FUROSEMIDE 40 MG TABLET PO SCH (08:58)
[2017-03-30] MEDS: MAGNESIUM CHLORIDE 64 MG TABLET PO SCH ×2 (08:58→21:16)
[2017-03-30] MEDS: DOCUSATE SODIUM 100 MG CAPSULE PO SCH ×2 (08:58→21:15)
[2017-03-30] MEDS: ASPIRIN EC 325 MG TABLET PO SCH (08:58)
[2017-03-30] MEDS: ESTRADIOL 2 MG TABLET PO SCH (08:59)
[2017-03-30] MEDS: PRIMIDONE 50 MG TABLET PO SCH ×3 (08:59→21:16)
[2017-03-30] MEDS: MORPHINE ER 30 MG TABLET PO SCH ×2 (08:59→21:15)
[2017-03-30] MEDS: ENOXAPARIN 30 MG/0.3 ML SYRINGE SUBCUT SCH (09:00)
[2017-03-30] MEDS: PANTOPRAZOLE 40 MG TABLET PO SCH (09:00)
[2017-03-30] MEDS: CARVEDILOL 6.25 MG TABLET PO SCH ×2 (09:12→21:15)
--- NOTE | 2017-03-30 09:12 | Family Practice Progress Note ---
Family Practice - PN: Subj Interval history: Patient states that she continues to have generalized malaise. States that she has had some intermittent dyspnea at times. Denies any cough. Denies shortness of breath the time of my evaluation. Her daily weight today is up 10 pounds which I doubt seriously. Her heart was regular rate and rhythm no murmurs Lungs are clear to auscultation at present. Abdomen is soft and nontender. A.m. labs revealed persistent elevated WBC at 32,800 the patient received a steroid injection to her hip last week. A.m. sodium is 134 with a potassium of 5.1. Her creatinine remains elevated at 3.2. She has a urinary tract in traction with gram-negative rods and C&S is pending presently has on empiric Levaquin. Patient is scheduled for a cystoscopic examination this a.m. by Dr. Concepcion. This is to evaluate the right hydronephrosis.. Hopefully there is some correctable obstruction that is causing her renal insufficiency. Will review cystoscopic results and labs later today. 03/29/17 - patient feels some better today main complaint is back pain. Patient had cystoscopic examination with placement of stent yesterday. Slight improvement in renal status today. Urine culture and one blood culture positive for an Enterobacter which is sensitive to present antibiotics. No new problems identified. We'll continue present evaluation and treatment 03/30/17 -patient still complaining of severe back pain. Has pain radiating to groin bilaterally. Her abdominal complaints have resolved. Her creatinine has improved this a.m. is a 2.4. Dr. Concepcion does not plan to do any further evaluation or procedures until next Saturday. If we can control patient's pain will discharge and do further evaluation on an outpatient basis. Patient is not ambulating at present because of pain. Encouraged her to increase activity up in chair ambulating in eric if possible. Will have staff contact Dr. Mitchell to see if he will modify her medications. Exam (Progress Note) - Constitutional Vitals: Period Temp Pulse Resp BP Sys/Hampton Pulse Ox Last 24 Hr 96.4 F-98.2 F 74-90 18-20 119-143/54-88 94-98 Results - Labs CBC & BMP: 03/30/17 03:20 03/30/17 03:20 Assessment and Plan (1) Acute renal failure Status: Acute Assessment and plan: Patient's creatinine has gone from 1.04 to 3.1 since November. Have consulted nephrology and will order a abdominal CT to make sure that there is no obstruction causing the renal insufficiency Current Visit: Yes (2) UTI (urinary tract infection) Status: Acute Assessment and plan: Patient appears to have an acute urinary tract infection. I have obtained a urine C&S as well as blood cultures. I started on a renal dose of Levaquin for empiric coverage. Current Visit: Yes (3) right ureteral obstruction Status: Acute Current Visit: Yes (4) Chronic low back pain Status: Chronic Assessment and plan: Patient has had chronic ongoing back pain and radicular pain. He is treated by Dr. Mitchell at the pain clinic Current Visit: Yes (5) previous renal calculi Status: Chronic Assessment and plan: No active stone noted at present, has right hydronephrosis Current Visit: Yes (6) Bilateral leg weakness Status: Chronic Assessment and plan: This appears to be chronic in nature. She is followed at the pain clinic and patient states that there has been some progressive weakness in lower extremities but no acute change. We will consult Dr. Mitchell and let him decide if he needs a current MRI. CT of the lumbar spine did not reveal any acute changes Current Visit: Yes (7) peripheral vascular disease Status: Chronic Assessment and plan: Stable at present Current Visit: Yes (8) chronic obstructive pulmonary disease Status: Chronic Assessment and plan: Stable at present Current Visit: Yes (9) obstructive sleep apnea Status: Chronic Assessment and plan: Stable on present treatment Current Visit: Yes (10) essential tremor Status: Chronic Assessment and plan: Tremor has been fairly stable on present meds Current Visit: Yes (11) history DVT Status: Chronic Assessment and plan: Stable at present Current Visit: Yes (12) Hypertension Status: Chronic Assessment and plan: Blood pressure has been stable on present medications Current Visit: Yes Specialty Discharge - Follow Up or Referrals Follow up with: Lupillo oPllack Jr., MD [Physician] - 03/28/17 12:30 pm
--- NOTE | 2017-03-30 09:50 | Urology Progress Note ---
Urology - PN: Subj Interval history: The patient's blood and urine cultures are positive for Enterobacter both sensitive to Levaquin. Her white count and creatinine have both decreased slightly Exam - Constitutional Vitals: Period Temp Pulse Resp BP Sys/Hampton Pulse Ox Last 24 Hr 96.4 F-98.2 F 74-90 18-20 119-143/54-88 94-98 Results - Labs CBC & BMP: 03/30/17 03:20 03/30/17 03:20 Specialty Discharge - Follow Up or Referrals Follow up with: Lupillo Pollack Jr., MD [Physician] - 03/28/17 12:30 pm
--- NOTE | 2017-03-30 10:43 | Nephrology Progress Note ---
Nephrology - PN: Subj Interval history: She still has some right lower quadrant pain. Mild S OB. No cough Exam (PN)-Nephrology - Vital Signs Vital signs: Period Temp Pulse Resp BP Sys/Hampton Pulse Ox Last 24 Hr 96.4 F-98.2 F 74-90 18-20 119-143/54-88 94-98 Exam: ENT: Normal Cardiovascular: Regular rate and rhythm. No murmur rub or gallop Lungs: Clear Abdomen: Mild right lower quadrant tenderness. No rebound Extremities: No edema - Lab 03/30/17 03:20 03/30/17 03:20 Most recent lab results Calcium 7.3 MG/DL (8.5-10.1) L 03/30/17 03:20 Magnesium 1.2 MG/DL (1.8-2.4) L 03/28/17 05:40 Assessment and Plan (1) Acute renal failure Status: Acute Assessment and plan: 81-year-old woman with: * ARF. Baseline creatinine 1.26 Nov 2016. Renal function improving * Metabolic acidosis. Bicarbonate added to IV fluid * Right hydronephrosis. Status post right ureteral stent placement. * UTI. Continue Levaquin * Hypertension. Antihypertensives held * Chronic back pain. Current Visit: Yes (2) Hydronephrosis, right Status: Acute Current Visit: Yes (3) Hypertension Status: Chronic Current Visit: Yes (4) Lumbar degenerative disc disease Problem details: 2-3 week history of increasing back and lower abdominal pain Status: Acute Current Visit: Yes (5) UTI (urinary tract infection) Status: Acute Current Visit: Yes Specialty Discharge - Follow Up or Referrals Follow up with: Lupillo Pollack Jr., MD [Physician] - 03/28/17 12:30 pm
[2017-03-30] MEDS: SODIUM ACETATE 50 MEQ in SODIUM CHLORIDE 0.45% 1,000 ML IV SCH (12:46)
[2017-03-30] MEDS: SODIUM CHLORIDE 0.45% 1,000 ML IV SCH (15:11)
[2017-03-30] MEDS: LEVOFLOXACIN INJ 750 MG in PREMIX 1 EACH IV SCH (21:16)
[2017-03-30] MEDS: ALPRAZolam 0.5 MG TABLET PO SCH (21:16)
[2017-03-31 03:59] LABS: Calcium 7.5 MG/DL (8.5-10.1); Osmolality,Calculated 285.8 MOS/KG (273-304); Potassium 3.9 MMOL/L (3.5-5.1)
[2017-03-31] MEDS: ENOXAPARIN 30 MG/0.3 ML SYRINGE SUBCUT SCH (09:28)
[2017-03-31] MEDS: MAGNESIUM CHLORIDE 64 MG TABLET PO SCH ×2 (09:29→21:26)
[2017-03-31] MEDS: DONEPEZIL 10 MG TABLET PO SCH (09:29)
[2017-03-31] MEDS: ESTRADIOL 2 MG TABLET PO SCH (09:29)
[2017-03-31] MEDS: PANTOPRAZOLE 40 MG TABLET PO SCH (09:30)
[2017-03-31] MEDS: ASPIRIN EC 325 MG TABLET PO SCH (09:30)
[2017-03-31] MEDS: PRIMIDONE 50 MG TABLET PO SCH ×3 (09:30→21:27)
[2017-03-31] MEDS: cloNIDine 0.1 MG TABLET PO SCH ×2 (09:31→21:27)
[2017-03-31] MEDS: CARVEDILOL 6.25 MG TABLET PO SCH ×2 (09:31→21:26)
[2017-03-31] MEDS: DOCUSATE SODIUM 100 MG CAPSULE PO SCH ×2 (09:31→21:28)
[2017-03-31] MEDS: MORPHINE ER 30 MG TABLET PO SCH ×2 (09:32→21:26)
[2017-03-31] MEDS: FUROSEMIDE 40 MG TABLET PO SCH (09:33)
--- NOTE | 2017-03-31 10:25 | Urology Progress Note ---
Urology - PN: Subj Interval history: The patient's creatinine is now below 2. Will discuss with interventional radiology next week to see if they can do a needle biopsy of the area of the obstruction Exam - Constitutional Vitals: Period Temp Pulse Resp BP Sys/Hampton Pulse Ox Last 24 Hr 97.1 F-98.3 F 74-83 18-20 135-191/64-76 94-98 Results - Labs CBC & BMP: 03/30/17 03:20 03/31/17 02:52 Specialty Discharge - Follow Up or Referrals Follow up with: Lupillo Pollack Jr., MD [Physician] - 03/28/17 12:30 pm
--- NOTE | 2017-03-31 11:22 | Nephrology Progress Note ---
Nephrology - PN: Subj Interval history: No shortness of breath. She still has low back pain and lower pelvic discomfort. No dysuria Exam (PN)-Nephrology - Vital Signs Vital signs: Period Temp Pulse Resp BP Sys/Hampton Pulse Ox Last 24 Hr 97.1 F-98.3 F 74-83 18-20 135-191/64-76 94-98 Exam: ENT: Normal Cardiovascular: Regular rate and rhythm. No murmur rub or gallop Lungs: Clear Abdomen: Mild right lower quadrant tenderness. No rebound Extremities: No edema - Lab 03/30/17 03:20 03/31/17 02:52 Most recent lab results Calcium 7.5 MG/DL (8.5-10.1) L 03/31/17 02:52 Magnesium 1.9 MG/DL (1.8-2.4) 03/31/17 02:52 Assessment and Plan (1) Acute renal failure Status: Acute Assessment and plan: 81-year-old woman with: * ARF. Baseline creatinine 1.26 Nov 2016. Renal function improving * Metabolic acidosis. Much improved with bicarbonate in IV fluid * Right hydronephrosis. Status post right ureteral stent placement. * UTI. Continue Levaquin * Hypertension. Antihypertensives held * Chronic back pain. Current Visit: Yes (2) Hydronephrosis, right Status: Acute Current Visit: Yes (3) Hypertension Status: Chronic Current Visit: Yes (4) Lumbar degenerative disc disease Problem details: 2-3 week history of increasing back and lower abdominal pain Status: Acute Current Visit: Yes (5) UTI (urinary tract infection) Status: Acute Current Visit: Yes Specialty Discharge - Follow Up or Referrals Follow up with: Lupillo Polalck Jr., MD [Physician] - 03/28/17 12:30 pm
[2017-03-31] MEDS: SODIUM ACETATE 50 MEQ in SODIUM CHLORIDE 0.45% 1,000 ML IV SCH (11:27)
--- NOTE | 2017-03-31 12:43 | Family Practice Progress Note ---
Family Practice - PN: Subj Interval history: Patient states that she continues to have generalized malaise. States that she has had some intermittent dyspnea at times. Denies any cough. Denies shortness of breath the time of my evaluation. Her daily weight today is up 10 pounds which I doubt seriously. Her heart was regular rate and rhythm no murmurs Lungs are clear to auscultation at present. Abdomen is soft and nontender. A.m. labs revealed persistent elevated WBC at 32,800 the patient received a steroid injection to her hip last week. A.m. sodium is 134 with a potassium of 5.1. Her creatinine remains elevated at 3.2. She has a urinary tract in traction with gram-negative rods and C&S is pending presently has on empiric Levaquin. Patient is scheduled for a cystoscopic examination this a.m. by Dr. Concepcion. This is to evaluate the right hydronephrosis.. Hopefully there is some correctable obstruction that is causing her renal insufficiency. Will review cystoscopic results and labs later today. 03/29/17 - patient feels some better today main complaint is back pain. Patient had cystoscopic examination with placement of stent yesterday. Slight improvement in renal status today. Urine culture and one blood culture positive for an Enterobacter which is sensitive to present antibiotics. No new problems identified. We'll continue present evaluation and treatment 03/30/17 -patient still complaining of severe back pain. Has pain radiating to groin bilaterally. Her abdominal complaints have resolved. Her creatinine has improved this a.m. is a 2.4. Dr. Concepcion does not plan to do any further evaluation or procedures until next Saturday. If we can control patient's pain will discharge and do further evaluation on an outpatient basis. Patient is not ambulating at present because of pain. Encouraged her to increase activity up in chair ambulating in eric if possible. Will have staff contact Dr. Mitchell to see if he will modify her medications. 03/31/17 -patient is generally stable. Her creatinine has decreased from 3.2 on admission to 1.9 today. Patient states that her back pain is almost unbearable and is affecting her ability to ambulate. Advised patient and family history ready for discharge if we can control her pain. She is being followed by pain clinic and I have asked the staff to contact pain clinic about modifying her medications. Dr. Concepcion plans to do the remaining evaluation on an outpatient basis. Again encourage patient increase activity. Exam (Progress Note) - Constitutional Vitals: Period Temp Pulse Resp BP Sys/Hampton Pulse Ox Last 24 Hr 97.1 F-98.3 F 74-83 18-20 135-191/64-76 94-98 Results - Labs CBC & BMP: 03/30/17 03:20 03/31/17 02:52 Assessment and Plan (1) Acute renal failure Status: Acute Assessment and plan: Patient's creatinine has gone from 1.04 to 3.1 since November. Have consulted nephrology and will order a abdominal CT to make sure that there is no obstruction causing the renal insufficiency Current Visit: Yes (2) UTI (urinary tract infection) Status: Acute Assessment and plan: Patient appears to have an acute urinary tract infection. I have obtained a urine C&S as well as blood cultures. I started on a renal dose of Levaquin for empiric coverage. Current Visit: Yes (3) right ureteral obstruction Status: Acute Current Visit: Yes (4) Chronic low back pain Status: Chronic Assessment and plan: Patient has had chronic ongoing back pain and radicular pain. He is treated by Dr. Mitchell at the pain clinic Current Visit: Yes (5) previous renal calculi Status: Chronic Assessment and plan: No active stone noted at present, has right hydronephrosis Current Visit: Yes (6) Bilateral leg weakness Status: Chronic Assessment and plan: This appears to be chronic in nature. She is followed at the pain clinic and patient states that there has been some progressive weakness in lower extremities but no acute change. We will consult Dr. Mitchell and let him decide if he needs a current MRI. CT of the lumbar spine did not reveal any acute changes Current Visit: Yes (7) peripheral vascular disease Status: Chronic Assessment and plan: Stable at present Current Visit: Yes (8) chronic obstructive pulmonary disease Status: Chronic Assessment and plan: Stable at present Current Visit: Yes (9) obstructive sleep apnea Status: Chronic Assessment and plan: Stable on present treatment Current Visit: Yes (10) essential tremor Status: Chronic Assessment and plan: Tremor has been fairly stable on present meds Current Visit: Yes (11) history DVT Status: Chronic Assessment and plan: Stable at present Current Visit: Yes (12) Hypertension Status: Chronic Assessment and plan: Blood pressure has been stable on present medications Current Visit: Yes Specialty Discharge - Follow Up or Referrals Follow up with: Lupillo Pollack Jr., MD [Physician] - 03/28/17 12:30 pm
--- NOTE | 2017-03-31 13:24 | Pain Management Progress Note ---
Assessment and Plan (1) Lumbar degenerative disc disease Problem details: 2-3 week history of increasing back and lower abdominal pain Status: Acute Assessment and plan: Her abdominal and groin pain are improved post stent right hydronephrosis, white count and Cr coming down. Urine and blood cultures pos for enterobacter sensitive to Levaquin. Post RFA of bilateral lumbar facets 2-3 weeks ago. I believe her pain is now soley d/t chronic DDD lumbar c/w her presentation with known 4-5 disc collapse. She has spinal stenosis but walked around the room for me. Would not increase opioids given COPD and elevated creatinine. Not likely any discitis despite blood cultures given her physical exam and presentation but can consider L/S MRI. Best treatment would seem to be OTILIA outpatient, but uretal mass obstruction biopsy takes precedence. She could go home from a pain standpoit and despite it hurting understands her options are limited and believes she can manage. Current Visit: Yes Pain - Subjective Interval history: Asked to see in Dr. Mitchell's absence due to chronic LBP. Exam - Constitutional Vitals: Period Temp Pulse Resp BP Sys/Hampton Pulse Ox Last 24 Hr 97.1 F-98.3 F 74-83 18-20 135-191/64-76 94-98 Results - Labs CBC & BMP: 03/30/17 03:20 03/31/17 02:52 Specialty Discharge - Follow Up or Referrals Follow up with: Lupillo Pollack Jr., MD [Physician] - 03/28/17 12:30 pm
[2017-03-31] MEDS: ALPRAZolam 0.5 MG TABLET PO SCH (21:27)
[2017-04-01] MEDS: SODIUM ACETATE 50 MEQ in SODIUM CHLORIDE 0.45% 1,000 ML IV SCH (06:27)
[2017-04-01] MEDS: ASPIRIN EC 325 MG TABLET PO SCH (10:00)
[2017-04-01] MEDS: DONEPEZIL 10 MG TABLET PO SCH (10:00)
[2017-04-01] MEDS: PANTOPRAZOLE 40 MG TABLET PO SCH (10:00)
[2017-04-01] MEDS: PRIMIDONE 50 MG TABLET PO SCH ×3 (10:00→21:45)
[2017-04-01] MEDS: DOCUSATE SODIUM 100 MG CAPSULE PO SCH ×2 (10:00→21:46)
[2017-04-01] MEDS: CARVEDILOL 6.25 MG TABLET PO SCH ×2 (10:00→21:46)
[2017-04-01] MEDS: cloNIDine 0.1 MG TABLET PO SCH ×2 (10:00→21:46)
[2017-04-01] MEDS: ENOXAPARIN 30 MG/0.3 ML SYRINGE SUBCUT SCH (10:01)
[2017-04-01] MEDS: FUROSEMIDE 40 MG TABLET PO SCH (10:01)
[2017-04-01] MEDS: MORPHINE ER 30 MG TABLET PO SCH ×2 (10:01→21:46)
[2017-04-01] MEDS: ESTRADIOL 2 MG TABLET PO SCH (10:01)
[2017-04-01] MEDS: MAGNESIUM CHLORIDE 64 MG TABLET PO SCH ×2 (10:02→21:46)
--- NOTE | 2017-04-01 11:13 | Family Practice Progress Note ---
Family Practice - PN: Subj Interval history: Patient states that she continues to have generalized malaise. States that she has had some intermittent dyspnea at times. Denies any cough. Denies shortness of breath the time of my evaluation. Her daily weight today is up 10 pounds which I doubt seriously. Her heart was regular rate and rhythm no murmurs Lungs are clear to auscultation at present. Abdomen is soft and nontender. A.m. labs revealed persistent elevated WBC at 32,800 the patient received a steroid injection to her hip last week. A.m. sodium is 134 with a potassium of 5.1. Her creatinine remains elevated at 3.2. She has a urinary tract in traction with gram-negative rods and C&S is pending presently has on empiric Levaquin. Patient is scheduled for a cystoscopic examination this a.m. by Dr. Concepcion. This is to evaluate the right hydronephrosis.. Hopefully there is some correctable obstruction that is causing her renal insufficiency. Will review cystoscopic results and labs later today. 03/29/17 - patient feels some better today main complaint is back pain. Patient had cystoscopic examination with placement of stent yesterday. Slight improvement in renal status today. Urine culture and one blood culture positive for an Enterobacter which is sensitive to present antibiotics. No new problems identified. We'll continue present evaluation and treatment 03/30/17 -patient still complaining of severe back pain. Has pain radiating to groin bilaterally. Her abdominal complaints have resolved. Her creatinine has improved this a.m. is a 2.4. Dr. Concepcion does not plan to do any further evaluation or procedures until next Saturday. If we can control patient's pain will discharge and do further evaluation on an outpatient basis. Patient is not ambulating at present because of pain. Encouraged her to increase activity up in chair ambulating in eric if possible. Will have staff contact Dr. Mitchell to see if he will modify her medications. 03/31/17 -patient is generally stable. Her creatinine has decreased from 3.2 on admission to 1.9 today. Patient states that her back pain is almost unbearable and is affecting her ability to ambulate. Advised patient and family history ready for discharge if we can control her pain. She is being followed by pain clinic and I have asked the staff to contact pain clinic about modifying her medications. Dr. Concepcion plans to do the remaining evaluation on an outpatient basis. Again encourage patient increase activity. 04/01/17 -patient still complaining of severe pain. states that she is not ambulating except to go to the bathroom. Patient states the pain is intensified which may be secondary from staying in bed. Dr. Dunn outpatient yesterday and did not want to change medications. I discussed swing bed placement with and . Both states that they would like to stay for procedure tomorrow and then be discharged home. thinks that he can manage her at home but does not want to take her home and have to bring her back in her present state. She is scheduled for skinny needle biopsy and/or cystoscopic evaluation. Dr. Concepcion we will see in a.m.. She is otherwise stable Exam (Progress Note) - Constitutional Vitals: Period Temp Pulse Resp BP Sys/Hampton Pulse Ox Last 24 Hr 97.1 F-98.6 F 76-89 18-22 150-192/69-79 92-97 Results - Labs CBC & BMP: 03/30/17 03:20 03/31/17 02:52 Assessment and Plan (1) Acute renal failure Status: Acute Assessment and plan: Patient's creatinine has gone from 1.04 to 3.1 since November. Have consulted nephrology and will order a abdominal CT to make sure that there is no obstruction causing the renal insufficiency Current Visit: Yes (2) UTI (urinary tract infection) Status: Acute Assessment and plan: Patient appears to have an acute urinary tract infection. I have obtained a urine C&S as well as blood cultures. I started on a renal dose of Levaquin for empiric coverage. Current Visit: Yes (3) right ureteral obstruction Status: Acute Current Visit: Yes (4) Chronic low back pain Status: Chronic Assessment and plan: Patient has had chronic ongoing back pain and radicular pain. He is treated by Dr. Mitchell at the pain clinic Current Visit: Yes (5) previous renal calculi Status: Chronic Assessment and plan: No active stone noted at present, has right hydronephrosis Current Visit: Yes (6) Bilateral leg weakness Status: Chronic Assessment and plan: This appears to be chronic in nature. She is followed at the pain clinic and patient states that there has been some progressive weakness in lower extremities but no acute change. We will consult Dr. Mitchell and let him decide if he needs a current MRI. CT of the lumbar spine did not reveal any acute changes Current Visit: Yes (7) peripheral vascular disease Status: Chronic Assessment and plan: Stable at present Current Visit: Yes (8) chronic obstructive pulmonary disease Status: Chronic Assessment and plan: Stable at present Current Visit: Yes (9) obstructive sleep apnea Status: Chronic Assessment and plan: Stable on present treatment Current Visit: Yes (10) essential tremor Status: Chronic Assessment and plan: Tremor has been fairly stable on present meds Current Visit: Yes (11) history DVT Status: Chronic Assessment and plan: Stable at present Current Visit: Yes (12) Hypertension Status: Chronic Assessment and plan: Blood pressure has been stable on present medications Current Visit: Yes Specialty Discharge - Follow Up or Referrals Follow up with: Lupillo Pollack Jr., MD [Physician] - 03/28/17 12:30 pm
--- NOTE | 2017-04-01 11:17 | Urology Progress Note ---
Urology - PN: Subj Interval history: I will discuss her case with interventional radiology tomorrow and will set up a biopsy if they think this is possible. If not I am going recommend that she go home with the ureteral stent and the next procedure would be ureteroscopy but I will delay that and do it as an outpatient after she has had the stent for a longer period Exam - Constitutional Vitals: Period Temp Pulse Resp BP Sys/Hampton Pulse Ox Last 24 Hr 97.1 F-98.6 F 76-89 18-22 150-192/69-79 92-97 Results - Labs CBC & BMP: 03/30/17 03:20 03/31/17 02:52 Specialty Discharge - Follow Up or Referrals Follow up with: Lupillo Pollack Jr., MD [Physician] - 03/28/17 12:30 pm
--- NOTE | 2017-04-01 14:24 | Nephrology Progress Note ---
Nephrology - PN: Subj Interval history: She is afebrile. She still has lower back pain. Blood pressure has been stable Exam (PN)-Nephrology - Vital Signs Vital signs: Period Temp Pulse Resp BP Sys/Hampton Pulse Ox Last 24 Hr 97.1 F-98.6 F 76-89 16-22 150-192/69-79 91-97 Exam: ENT: Normal Cardiovascular: Regular rate and rhythm. No murmur rub or gallop Lungs: Clear Abdomen: Mild right lower quadrant tenderness. No rebound Extremities: No edema - Lab 03/30/17 03:20 03/31/17 02:52 Most recent lab results Calcium 7.5 MG/DL (8.5-10.1) L 03/31/17 02:52 Magnesium 2.0 MG/DL (1.8-2.4) 04/01/17 04:08 Assessment and Plan (1) Acute renal failure Status: Acute Assessment and plan: 81-year-old woman with: * ARF. Baseline creatinine 1.26 Nov 2016. Renal function improving. Repeat BMP in a.m. * Metabolic acidosis. Much improved with bicarbonate in IV fluid * Right hydronephrosis. Status post right ureteral stent placement. * UTI. Continue Levaquin * Hypertension. Antihypertensives held * Chronic back pain. Current Visit: Yes (2) Hydronephrosis, right Status: Acute Current Visit: Yes (3) Hypertension Status: Chronic Current Visit: Yes (4) Lumbar degenerative disc disease Problem details: 2-3 week history of increasing back and lower abdominal pain Status: Acute Current Visit: Yes (5) UTI (urinary tract infection) Status: Acute Current Visit: Yes Specialty Discharge - Follow Up or Referrals Follow up with: Lupillo Pollack Jr., MD [Physician] - 03/28/17 12:30 pm
[2017-04-01] MEDS: ALPRAZolam 0.5 MG TABLET PO SCH (21:46)
[2017-04-01] MEDS: LEVOFLOXACIN INJ 750 MG in PREMIX 1 EACH IV SCH (21:47)
[2017-04-02 03:17] LABS: Basophils # 0.1 10*3/uL (0.0-0.2); Basophils % 0.4 % (0.0-0.8); Eosinophils # 0.2 10*3/uL (0.0-0.87); Eosinophils % 1.5 % (0.00-10.9); Hemoglobin 9.7 GM/DL (12.0-16.0); Immature Granulocytes % 4.3 %; Immature Granulocytes Absolute 0.58 #; Lymphocytes # 2.8 10*3/uL (1.4-4.0); Mean Corpuscular HGB Conc 33.4 GM/DL (32-36); Mean Corpuscular Hemoglobin 30 PG (27-34); Mean Corpuscular Volume 89.5 FL (87-102); Monocytes # 1.6 10*3/uL (0.11-0.8); Monocytes % 11.8 % (1.7-12.7); Neutrophils # 8.3 10*3/uL (1.4-7.4); Platelet Count 171 T/CUMM (130-400); Red Blood Count 3.24 MC/CUMM (3.8-5.5); Red Cell Distribution Width 15.2 % (9.3-17.3); White Blood Count 13.5 T/CUMM (4-12)
[2017-04-02 03:52] LABS: Calcium 7.7 MG/DL (8.5-10.1); Osmolality,Calculated 282.5 MOS/KG (273-304); Potassium 4.3 MMOL/L (3.5-5.1)
[2017-04-02] MEDS: SODIUM ACETATE 50 MEQ in SODIUM CHLORIDE 0.45% 1,000 ML IV SCH (04:16)
[2017-04-02 04:48] LABS: Band Neutrophils 4 % (0-10); Lymphocytes 22 % (20-55); Metamyelocytes 2 %; Platelet Estimate Adequate; Segmented Neutrophils 69 % (50-85); Total Cells Counted 100
--- NOTE | 2017-04-02 07:43 | Urology Progress Note ---
Urology - PN: Subj Interval history: The patient's white count is down and her creatinine is down to 1.3. I will discuss possible biopsy of the retroperitoneal mass with interventional radiology today and if they think they can do it will let him try if not I would let her go home with a ureteral stent in the next procedure would be ureteroscopy Exam - Constitutional Vitals: Period Temp Pulse Resp BP Sys/Hampton Pulse Ox Last 24 Hr 97.2 F-97.6 F 80-89 16-22 164-201/71-98 90-96 Results - Labs CBC & BMP: 04/02/17 02:52 04/02/17 02:52 Specialty Discharge - Follow Up or Referrals Follow up with: Lupillo Pollack Jr., MD [Physician] - 03/28/17 12:30 pm
--- NOTE | 2017-04-02 08:03 | Family Practice Progress Note ---
Family Practice - PN: Subj Interval history: Patient states that she continues to have generalized malaise. States that she has had some intermittent dyspnea at times. Denies any cough. Denies shortness of breath the time of my evaluation. Her daily weight today is up 10 pounds which I doubt seriously. Her heart was regular rate and rhythm no murmurs Lungs are clear to auscultation at present. Abdomen is soft and nontender. A.m. labs revealed persistent elevated WBC at 32,800 the patient received a steroid injection to her hip last week. A.m. sodium is 134 with a potassium of 5.1. Her creatinine remains elevated at 3.2. She has a urinary tract in traction with gram-negative rods and C&S is pending presently has on empiric Levaquin. Patient is scheduled for a cystoscopic examination this a.m. by Dr. Concepcion. This is to evaluate the right hydronephrosis.. Hopefully there is some correctable obstruction that is causing her renal insufficiency. Will review cystoscopic results and labs later today. 03/29/17 - patient feels some better today main complaint is back pain. Patient had cystoscopic examination with placement of stent yesterday. Slight improvement in renal status today. Urine culture and one blood culture positive for an Enterobacter which is sensitive to present antibiotics. No new problems identified. We'll continue present evaluation and treatment 03/30/17 -patient still complaining of severe back pain. Has pain radiating to groin bilaterally. Her abdominal complaints have resolved. Her creatinine has improved this a.m. is a 2.4. Dr. Concepcion does not plan to do any further evaluation or procedures until next Saturday. If we can control patient's pain will discharge and do further evaluation on an outpatient basis. Patient is not ambulating at present because of pain. Encouraged her to increase activity up in chair ambulating in eric if possible. Will have staff contact Dr. Mitchell to see if he will modify her medications. 03/31/17 -patient is generally stable. Her creatinine has decreased from 3.2 on admission to 1.9 today. Patient states that her back pain is almost unbearable and is affecting her ability to ambulate. Advised patient and family history ready for discharge if we can control her pain. She is being followed by pain clinic and I have asked the staff to contact pain clinic about modifying her medications. Dr. Concepcion plans to do the remaining evaluation on an outpatient basis. Again encourage patient increase activity. 04/01/17 -patient still complaining of severe pain. states that she is not ambulating except to go to the bathroom. Patient states the pain is intensified which may be secondary from staying in bed. Dr. Dunn outpatient yesterday and did not want to change medications. I discussed swing bed placement with and . Both states that they would like to stay for procedure tomorrow and then be discharged home. thinks that he can manage her at home but does not want to take her home and have to bring her back in her present state. She is scheduled for skinny needle biopsy and/or cystoscopic evaluation. Dr. Concepcion we will see in a.m.. She is otherwise stable 04/02/17 -patient still complaining of severe pain. Dr. Concepcion is discussing case with [facility] possible to biopsy. If biopsy is not accessible then patient will be ready for discharge. Patient and stated along that she wanted to go home but now they want to consider swing bed. not sure that he can handle patient and her present state. She is not ambulating. Patient states that her pain is so severe that he has not been ambulating up and go to the bathroom. Will consult rn social work to help with placement on discharge Exam (Progress Note) - Constitutional Vitals: Period Temp Pulse Resp BP Sys/Hampton Pulse Ox Last 24 Hr 97.2 F-97.6 F 80-89 16-22 164-201/71-98 90-96 Results - Labs CBC & BMP: 04/02/17 02:52 04/02/17 02:52 Assessment and Plan (1) Acute renal failure Status: Acute Assessment and plan: Patient's creatinine has gone from 1.04 to 3.1 since November. Have consulted nephrology and will order a abdominal CT to make sure that there is no obstruction causing the renal insufficiency Current Visit: Yes (2) UTI (urinary tract infection) Status: Acute Assessment and plan: Patient appears to have an acute urinary tract infection. I have obtained a urine C&S as well as blood cultures. I started on a renal dose of Levaquin for empiric coverage. Current Visit: Yes (3) right ureteral obstruction Status: Acute Current Visit: Yes (4) Chronic low back pain Status: Chronic Assessment and plan: Patient has had chronic ongoing back pain and radicular pain. He is treated by Dr. Mitchell at the pain clinic Current Visit: Yes (5) previous renal calculi Status: Chronic Assessment and plan: No active stone noted at present, has right hydronephrosis Current Visit: Yes (6) Bilateral leg weakness Status: Chronic Assessment and plan: This appears to be chronic in nature. She is followed at the pain clinic and patient states that there has been some progressive weakness in lower extremities but no acute change. We will consult Dr. Mitchell and let him decide if he needs a current MRI. CT of the lumbar spine did not reveal any acute changes Current Visit: Yes (7) peripheral vascular disease Status: Chronic Assessment and plan: Stable at present Current Visit: Yes (8) chronic obstructive pulmonary disease Status: Chronic Assessment and plan: Stable at present Current Visit: Yes (9) obstructive sleep apnea Status: Chronic Assessment and plan: Stable on present treatment Current Visit: Yes (10) essential tremor Status: Chronic Assessment and plan: Tremor has been fairly stable on present meds Current Visit: Yes (11) history DVT Status: Chronic Assessment and plan: Stable at present Current Visit: Yes (12) Hypertension Status: Chronic Assessment and plan: Blood pressure has been stable on present medications Current Visit: Yes Specialty Discharge - Follow Up or Referrals Follow up with: Lupillo Pollack Jr., MD [Physician] - 03/28/17 12:30 pm
[2017-04-02] MEDS: ESTRADIOL 2 MG TABLET PO SCH (08:17)
[2017-04-02] MEDS: MAGNESIUM CHLORIDE 64 MG TABLET PO SCH ×2 (08:17→20:42)
[2017-04-02] MEDS: MORPHINE ER 30 MG TABLET PO SCH ×2 (08:17→20:43)
[2017-04-02] MEDS: DONEPEZIL 10 MG TABLET PO SCH (08:17)
[2017-04-02] MEDS: cloNIDine 0.1 MG TABLET PO SCH ×2 (08:18→18:53)
[2017-04-02] MEDS: DOCUSATE SODIUM 100 MG CAPSULE PO SCH ×2 (08:18→20:43)
[2017-04-02] MEDS: PRIMIDONE 50 MG TABLET PO SCH ×3 (08:18→20:43)
[2017-04-02] MEDS: PANTOPRAZOLE 40 MG TABLET PO SCH (08:18)
[2017-04-02] MEDS: FUROSEMIDE 40 MG TABLET PO SCH (08:18)
[2017-04-02] MEDS: ASPIRIN EC 325 MG TABLET PO SCH (08:18)
[2017-04-02] MEDS: CARVEDILOL 6.25 MG TABLET PO SCH ×2 (08:18→20:43)
[2017-04-02] MEDS: ENOXAPARIN 40 MG/0.4 ML SYRINGE SUBCUT SCH (08:25)
--- NOTE | 2017-04-02 11:06 | Nephrology Progress Note ---
Nephrology - PN: Subj Interval history: She continues to have lower back and pelvic pain similar to admission. Urine output has been good. No dysuria. No shortness of breath Exam (PN)-Nephrology - Vital Signs Vital signs: Period Temp Pulse Resp BP Sys/Hampton Pulse Ox Last 24 Hr 97.2 F-97.7 F 80-89 16-22 164-227/71-98 90-96 Exam: ENT: Normal Cardiovascular: Regular rate and rhythm. No murmur rub or gallop Lungs: Clear Extremities: No edema - Lab 04/02/17 02:52 04/02/17 02:52 Most recent lab results Calcium 7.7 MG/DL (8.5-10.1) L 04/02/17 02:52 Magnesium 2.0 MG/DL (1.8-2.4) 04/01/17 04:08 Assessment and Plan (1) Acute renal failure Status: Acute Assessment and plan: 81-year-old woman with: * ARF. Baseline creatinine 1.26 Nov 2016. Renal function improved to near baseline. * Metabolic acidosis. Resolved. DC IV bicarbonate * Right hydronephrosis. Status post right ureteral stent placement. * UTI. Continue Levaquin * Hypertension. Antihypertensives held * Chronic back pain. Current Visit: Yes (2) Hydronephrosis, right Status: Acute Current Visit: Yes (3) Hypertension Status: Chronic Current Visit: Yes (4) Lumbar degenerative disc disease Problem details: 2-3 week history of increasing back and lower abdominal pain Status: Acute Current Visit: Yes (5) UTI (urinary tract infection) Status: Acute Current Visit: Yes Specialty Discharge - Follow Up or Referrals Follow up with: Lupillo Pollack Jr., MD [Physician] - 03/28/17 12:30 pm
--- NOTE | 2017-04-02 12:10 | Pain Management Progress Note ---
Assessment and Plan (1) Lumbar degenerative disc disease Problem details: 2-3 week history of increasing back and lower abdominal pain Status: Acute Assessment and plan: 04/02/2017. Patient continues to have low back and abdominal pain. Continued workup of retroperitoneal mass by urology underway. She also has significant mechanical low back pain complicated by deconditioning and being in bed so long. Did strongly urge her to mobilize. Will increase the hydrocodone product to every 6 from q. 8. Agree with plans. y 03/28/2017. Patient continues to have similar complaints. For workup. I do not think that her knee pain is spinal in origin. I will be out for the next 4 days but please have the nursing staff call if there is any questions. n 03/27/2017. The patient is very pleasant 81-year-old female well-known to me and is a patient of mine. We treated her low back for lumbar facet arthropathy manage her medically for her lumbar spinal pain. She developed to 3 weeks ago increasing low back pain that radiated into the groin and lower abdominal abdomen bilaterally. She denies any injury. Is a throbbing aching discomfort. CT scan which are reviewed demonstrates degenerative changes and fairly marked collapse at the L4-5 level but no acute changes are seen. No compression fractures are noted. Moderate canal narrowing is present but not severe. At this point I do not think it MRI is medically necessary. Worry about potential of a GI or source of her pain. I will continue to follow with you. y Current Visit: Yes Pain - Subjective Interval history: Continued low back and abdominal pain Exam - Constitutional Vitals: Period Temp Pulse Resp BP Sys/Hampton Pulse Ox Last 24 Hr 97.2 F-97.7 F 79-89 16-22 166-227/71-98 90-97 General appearance: normal weight, mild distress - GI/Abdominal GI/Abdominal exam: Present: tenderness - Back Exam Back exam: Present: vertebral tenderness Results - Labs CBC & BMP: 04/02/17 02:52 04/02/17 02:52 Specialty Discharge - Follow Up or Referrals Follow up with: Lupillo Pollack Jr., MD [Physician] - 03/28/17 12:30 pm
[2017-04-02] MEDS: SODIUM CHLORIDE 0.9% 1,000 ML IV SCH (12:58)
[2017-04-02] MEDS ORDERED: FUROSEMIDE 20 MG/2 ML VIAL IV ONE (20:03)
[2017-04-02] MEDS: ALPRAZolam 0.5 MG TABLET PO SCH (20:42)
[2017-04-03] MEDS ORDERED: MORPHINE 2 MG/1 ML SYRINGE IV ONE (02:28)
--- NOTE | 2017-04-03 02:47 | EKG Report ---
Stationary ECG Study [facility] Test Date: 04/03/2017 2:47:40 AM Pat Name: PRISCILA BLAKE Department: Room: 240 Gender: F Parts Cleaner: MANI : 1935 Requested by: Kemar Leon Order Number: [id number] Reading MD: BLANK MANCILLA Intervals [place] Rate: 91 P: 75 VA: 189 QRS: 104 QRSD: 94 T: 63 QT: 363 QTc: 412 Interpretive Statements SINUS RHYTHM POSSIBLE RIGHT VENTRICULAR HYPERTROPHY Electronically Signed On 04-03-17 14:02:43 CDT by BLANK MANCILLA [email or web address]
[2017-04-03 04:01] LABS: Calcium 7.5 MG/DL (8.5-10.1); Osmolality,Calculated 275.8 MOS/KG (273-304); Potassium 3.5 MMOL/L (3.5-5.1)
[2017-04-03 04:05] LABS: Troponin I Only 0.025 NG/ML (0.00-0.045)
--- NOTE | 2017-04-03 06:42 | XRay Report ---
Exam: XR chest 2V Date: 04/03/2017 2:28 AM Indication: Shortness of breath Comparison: 03/28/2017 Technical: PA lateral Findings: Low volume effusions and underlying atelectatic changes are present in both bases and/or infiltrates. Mild cardiomegaly. ASVD is present. Previous cervical fusion and surgical changes in the right upper abdomen also noted. ASVD. No pneumothorax Impression: 1. Cardiomegaly with component that suggest low volume effusions which could represent a component of mild CHF and atelectatic change. 2. Status post surgical changes of the cervical spine and prior cholecystectomy PROCEDURE INTERPRETED AT [facility] DEPARTMENT OF RADIOLOGY Final Report Signed by: Dr. Yogesh Nash
--- NOTE | 2017-04-03 07:31 | Urology Progress Note ---
Urology - PN: Subj Interval history: Interventional radiology does not think that can safely do a biopsy. I will let her go home with the stent and will plan ureteroscopy at a later date Exam - Constitutional Vitals: Period Temp Pulse Resp BP Sys/Hampton Pulse Ox Last 24 Hr 96.6 F-98.4 F 78-98 20-22 169-227/73-98 95-99 Results - Labs CBC & BMP: 04/02/17 02:52 04/03/17 03:04 Specialty Discharge - Follow Up or Referrals Follow up with: Lupillo Pollack Jr., MD [Physician] - 03/28/17 12:30 pm
[2017-04-03] MEDS ORDERED: FUROSEMIDE 40 MG/4 ML VIAL IM ONE (07:54)
[2017-04-03] MEDS: ENOXAPARIN 40 MG/0.4 ML SYRINGE SUBCUT SCH (08:05)
[2017-04-03] MEDS: MAGNESIUM CHLORIDE 64 MG TABLET PO SCH ×2 (08:05→20:26)
[2017-04-03] MEDS: CARVEDILOL 6.25 MG TABLET PO SCH ×2 (08:06→20:26)
[2017-04-03] MEDS: DONEPEZIL 10 MG TABLET PO SCH (08:06)
[2017-04-03] MEDS: DOCUSATE SODIUM 100 MG CAPSULE PO SCH ×2 (08:06→20:28)
[2017-04-03] MEDS: ESTRADIOL 2 MG TABLET PO SCH (08:06)
[2017-04-03] MEDS: PRIMIDONE 50 MG TABLET PO SCH ×3 (08:07→20:26)
[2017-04-03] MEDS: ASPIRIN EC 325 MG TABLET PO SCH (08:07)
[2017-04-03] MEDS: PANTOPRAZOLE 40 MG TABLET PO SCH (08:07)
[2017-04-03] MEDS: cloNIDine 0.1 MG TABLET PO SCH (08:07)
--- NOTE | 2017-04-03 08:54 | CT Report ---
Exam: CT chest PE study Date: 04/03/2017 7:56 AM Indication: Chest pain shortness of breath Comparison: 06/03/2013 Total DLP 243.3 Technical: Images were obtained from the thoracic inlet through the lung bases with 80 cc of Omnipaque 350 with axial and coronal imaging available for review. Dose reduction was performed with decreasing kv and mA and automated exposure. 3-D MIP images were obtained Findings: The thyroid gland and trachea and esophagus are unremarkable. The pulmonary outflow tract, left and right proximal pulmonary arteries, first-order, second-order and third order branches reveal no evidence of pulmonary thromboemboli. Bilateral pleural effusions are present with some underlying atelectatic change present. Patchy infiltrate in the anterior left apical region. Some underlying groundglass densities are present bilaterally. Mild cardiac enlargement is present. ASVD is present. The mediastinum is otherwise unremarkable. The bony structures are otherwise intact. Small nodes are present in the mediastinum in the aortopulmonic window carinal area. The liver and spleen stomach proximal left kidney unremarkable. Previous cholecystectomy. There is some fatty infiltration of the pancreas present Impression: 1. Bilateral pleural effusions, right greater than left.. Thoracentesis may be beneficial 2. No evidence of pulmonary thromboemboli. 3. Findings cyst bilateral patchy interstitial alveolar infiltrates. Some groundglass densities are also present that suggest a component of CHF 4. Previous cholecystectomy. PROCEDURE INTERPRETED AT [facility] DEPARTMENT OF RADIOLOGY Final Report Signed by: Dr. Yogesh Nash
[2017-04-03] MEDS: SODIUM CHLORIDE 0.9% 1,000 ML IV SCH (10:10)
[2017-04-03] MEDS: FUROSEMIDE 40 MG TABLET PO SCH (10:10)
[2017-04-03] MEDS ORDERED: amLODIPine 5 MG TABLET PO SCH (14:00)
--- NOTE | 2017-04-03 14:02 | Pain Management Progress Note ---
Assessment and Plan (1) Lumbar degenerative disc disease Problem details: 2-3 week history of increasing back and lower abdominal pain Status: Acute Assessment and plan: 04/03/2017. Patient's back pain has improved somewhat. She is having increasing shortness of breath. Will continue to follow with you. n 04/02/2017. Patient continues to have low back and abdominal pain. Continued workup of retroperitoneal mass by urology underway. She also has significant mechanical low back pain complicated by deconditioning and being in bed so long. Did strongly urge her to mobilize. Will increase the hydrocodone product to every 6 from q. 8. Agree with plans. y 03/28/2017. Patient continues to have similar complaints. For workup. I do not think that her knee pain is spinal in origin. I will be out for the next 4 days but please have the nursing staff call if there is any questions. n 03/27/2017. The patient is very pleasant 81-year-old female well-known to me and is a patient of mine. We treated her low back for lumbar facet arthropathy manage her medically for her lumbar spinal pain. She developed to 3 weeks ago increasing low back pain that radiated into the groin and lower abdominal abdomen bilaterally. She denies any injury. Is a throbbing aching discomfort. CT scan which are reviewed demonstrates degenerative changes and fairly marked collapse at the L4-5 level but no acute changes are seen. No compression fractures are noted. Moderate canal narrowing is present but not severe. At this point I do not think it MRI is medically necessary. Worry about potential of a GI or source of her pain. I will continue to follow with you. y Current Visit: Yes Pain - Subjective Interval history: Back pain some better today, complains of increasing trouble with her breathing Exam - Constitutional Vitals: Period Temp Pulse Resp BP Sys/Hampton Pulse Ox Last 24 Hr 96.6 F-98.4 F 78-98 20-20 169-241/72-109 94-99 Results - Labs CBC & BMP: 04/02/17 02:52 04/03/17 03:04 Specialty Discharge - Follow Up or Referrals Follow up with: Lupillo Pollack Jr., MD [Physician] - 03/28/17 12:30 pm
[2017-04-03] MEDS: hydrALAZINE 20 MG/1 ML VIAL IV PRN (17:37)
--- NOTE | 2017-04-03 19:05 | Nephrology Progress Note ---
Nephrology - PN: Subj Interval history: She complains of continued back pain. No shortness of breath. Exam (PN)-Nephrology - Vital Signs Vital signs: Period Temp Pulse Resp BP Sys/Hampt[place] Pulse Ox Last 24 Hr 96.6 F-98.0 F 78-98 20-20 155-241/72-109 94-99 Exam: ENT: Normal Cardiovascular: Regular rate and rhythm. No murmur rub or gallop Lungs: Clear Extremities: No edema - Lab 04/02/17 02:52 04/03/17 03:04 Most recent lab results Calcium 7.5 MG/DL (8.5-10.1) L 04/03/17 03:04 Magnesium 2.0 MG/DL (1.8-2.4) 04/01/17 04:08 Assessment and Plan (1) Acute renal failure Status: Acute Assessment and plan: 81-year-old woman with: * ARF. Resolved. No additional recommendations. I will sign off. Please recall as needed * Metabolic acidosis. Resolved. * Right hydronephrosis. Status post right ureteral stent placement. * UTI. Continue Levaquin * Hypertension. Antihypertensives held * Chronic back pain. Current Visit: Yes (2) Hydronephrosis, right Status: Acute Current Visit: Yes (3) Hypertension Status: Chronic Current Visit: Yes (4) Lumbar degenerative disc disease Problem details: 2-3 week history of increasing back and lower abdominal pain Status: Acute Current Visit: Yes (5) UTI (urinary tract infection) Status: Acute Current Visit: Yes Specialty Discharge - Follow Up or Referrals Follow up with: Lupillo Pollack Jr., MD [Physician] - 03/28/17 12:30 pm
[2017-04-03] MEDS: ALPRAZolam 0.5 MG TABLET PO SCH (20:27)
[2017-04-03] MEDS: LEVOFLOXACIN INJ 750 MG in PREMIX 1 EACH IV SCH (20:27)
[2017-04-04 05:44] LABS: Basophils % 0.2 % (0.0-0.8); Eosinophils # 0.2 10*3/uL (0.0-0.87); Eosinophils % 1.3 % (0.00-10.9); Hematocrit 27.6 VOL% (35.7-47.0); Hemoglobin 9.2 GM/DL (12.0-16.0); Immature Granulocytes % 1.9 %; Immature Granulocytes Absolute 0.34 #; Lymphocytes # 2.3 10*3/uL (1.4-4.0); Lymphocytes % 12.9 % (21.3-54.2); Mean Corpuscular HGB Conc 33.3 GM/DL (32-36); Mean Corpuscular Hemoglobin 30 PG (27-34); Mean Corpuscular Volume 88.5 FL (87-102); Monocytes % 5.8 % (1.7-12.7); Neutrophils # 13.9 10*3/uL (1.4-7.4); Neutrophils % 77.9 % (38.7-73.9); Platelet Count 235 T/CUMM (130-400); Red Blood Count 3.12 MC/CUMM (3.8-5.5); Red Cell Distribution Width 14.9 % (9.3-17.3); White Blood Count 17.9 T/CUMM (4-12)
[2017-04-04 06:23] LABS: Alanine Aminotransferase 33 U/L (13-56); Albumin 2.2 G/DL (3.4-5.0); Alkaline Phosphatase 94 U/L (45-117); Aspartate Amino Transferase 65 U/L (0-37); Bilirubin,Total < 0.39 MG/DL (0.2-1.0); Blood Urea Nitrogen 13 MG/DL (7-18); Calcium 7.1 MG/DL (8.5-10.1); Glucose 127 MG/DL (74-106); Osmolality,Calculated 276.7 MOS/KG (273-304); Potassium 2.9 MMOL/L (3.5-5.1); Sodium 138 MMOL/L (136-145); Total Protein 6.1 G/DL (6.4-8.3)
--- NOTE | 2017-04-04 07:31 | Family Practice Progress Note ---
Family Practice - PN: Subj Interval history: Patient states that she continues to have generalized malaise. States that she has had some intermittent dyspnea at times. Denies any cough. Denies shortness of breath the time of my evaluation. Her daily weight today is up 10 pounds which I doubt seriously. Her heart was regular rate and rhythm no murmurs Lungs are clear to auscultation at present. Abdomen is soft and nontender. A.m. labs revealed persistent elevated WBC at 32,800 the patient received a steroid injection to her hip last week. A.m. sodium is 134 with a potassium of 5.1. Her creatinine remains elevated at 3.2. She has a urinary tract in traction with gram-negative rods and C&S is pending presently has on empiric Levaquin. Patient is scheduled for a cystoscopic examination this a.m. by Dr. Concepcion. This is to evaluate the right hydronephrosis.. Hopefully there is some correctable obstruction that is causing her renal insufficiency. Will review cystoscopic results and labs later today. 03/29/17 - patient feels some better today main complaint is back pain. Patient had cystoscopic examination with placement of stent yesterday. Slight improvement in renal status today. Urine culture and one blood culture positive for an Enterobacter which is sensitive to present antibiotics. No new problems identified. We'll continue present evaluation and treatment 03/30/17 -patient still complaining of severe back pain. Has pain radiating to groin bilaterally. Her abdominal complaints have resolved. Her creatinine has improved this a.m. is a 2.4. Dr. Concepcion does not plan to do any further evaluation or procedures until next Saturday. If we can control patient's pain will discharge and do further evaluation on an outpatient basis. Patient is not ambulating at present because of pain. Encouraged her to increase activity up in chair ambulating in eric if possible. Will have staff contact Dr. Mitchell to see if he will modify her medications. 03/31/17 -patient is generally stable. Her creatinine has decreased from 3.2 on admission to 1.9 today. Patient states that her back pain is almost unbearable and is affecting her ability to ambulate. Advised patient and family history ready for discharge if we can control her pain. She is being followed by pain clinic and I have asked the staff to contact pain clinic about modifying her medications. Dr. Concepcion plans to do the remaining evaluation on an outpatient basis. Again encourage patient increase activity. 04/01/17 -patient still complaining of severe pain. states that she is not ambulating except to go to the bathroom. Patient states the pain is intensified which may be secondary from staying in bed. Dr. Dunn outpatient yesterday and did not want to change medications. I discussed swing bed placement with and . Both states that they would like to stay for procedure tomorrow and then be discharged home. thinks that he can manage her at home but does not want to take her home and have to bring her back in her present state. She is scheduled for skinny needle biopsy and/or cystoscopic evaluation. Dr. Concepcion we will see in a.m.. She is otherwise stable 04/02/17 -patient still complaining of severe pain. Dr. Concepcion is discussing case with [facility] possible to biopsy. If biopsy is not accessible then patient will be ready for discharge. Patient and stated along that she wanted to go home but now they want to consider swing bed. not sure that he can handle patient and her present state. She is not ambulating. Patient states that her pain is so severe that he has not been ambulating up and go to the bathroom. Will consult social service assistant to help with placement on discharge 04/03/17-I am entering his note on 04 04 has apparently forgot to place a progress note for 04 03 but I did see the patient will. Patient is doing well except for some persistent pain. Blood pressures have been poorly controlled part of that he is secondary to the amount of discomfort and pain. Will titrate medications. Awaiting placement in swing. Her discharge Exam (Progress Note) - Constitutional Vitals: Period Temp Pulse Resp BP Sys/Hampton Pulse Ox Last 24 Hr 97.3 F-98.6 F 80-95 18-24 150-241/72-109 94-98 Results - Labs CBC & BMP: 04/04/17 04:41 04/04/17 04:41 Assessment and Plan (1) Acute renal failure Status: Acute Assessment and plan: Patient's creatinine has gone from 1.04 to 3.1 since November. Have consulted nephrology and will order a abdominal CT to make sure that there is no obstruction causing the renal insufficiency Current Visit: Yes (2) UTI (urinary tract infection) Status: Acute Assessment and plan: Patient appears to have an acute urinary tract infection. I have obtained a urine C&S as well as blood cultures. I started on a renal dose of Levaquin for empiric coverage. Current Visit: Yes (3) right ureteral obstruction Status: Acute Current Visit: Yes (4) Chronic low back pain Status: Chronic Assessment and plan: Patient has had chronic ongoing back pain and radicular pain. He is treated by Dr. Mitchell at the pain clinic Current Visit: Yes (5) previous renal calculi Status: Chronic Assessment and plan: No active stone noted at present, has right hydronephrosis Current Visit: Yes (6) Bilateral leg weakness Status: Chronic Assessment and plan: This appears to be chronic in nature. She is followed at the pain clinic and patient states that there has been some progressive weakness in lower extremities but no acute change. We will consult Dr. Mitchell and let him decide if he needs a current MRI. CT of the lumbar spine did not reveal any acute changes Current Visit: Yes (7) peripheral vascular disease Status: Chronic Assessment and plan: Stable at present Current Visit: Yes (8) chronic obstructive pulmonary disease Status: Chronic Assessment and plan: Stable at present Current Visit: Yes (9) obstructive sleep apnea Status: Chronic Assessment and plan: Stable on present treatment Current Visit: Yes (10) essential tremor Status: Chronic Assessment and plan: Tremor has been fairly stable on present meds Current Visit: Yes (11) history DVT Status: Chronic Assessment and plan: Stable at present Current Visit: Yes (12) Hypertension Status: Chronic Assessment and plan: Blood pressure has been stable on present medications Current Visit: Yes Specialty Discharge - Follow Up or Referrals Follow up with: Lupillo Pollack Jr., MD [Physician] - 03/28/17 12:30 pm
--- NOTE | 2017-04-04 07:35 | Urology Progress Note ---
Urology - PN: Subj Interval history: Creatinine is down to 1.1 and the patient is tolerating her stent well Exam - Constitutional Vitals: Period Temp Pulse Resp BP Sys/Hampton Pulse Ox Last 24 Hr 97.3 F-98.6 F 80-95 18-24 150-241/72-109 94-98 Results - Labs CBC & BMP: 04/04/17 04:41 04/04/17 04:41 Specialty Discharge - Follow Up or Referrals Follow up with: Lupillo Pollack Jr., MD [Physician] - 03/28/17 12:30 pm
--- NOTE | 2017-04-04 08:06 | Family Practice Progress Note ---
Family Practice - PN: Subj Interval history: Patient states that she continues to have generalized malaise. States that she has had some intermittent dyspnea at times. Denies any cough. Denies shortness of breath the time of my evaluation. Her daily weight today is up 10 pounds which I doubt seriously. Her heart was regular rate and rhythm no murmurs Lungs are clear to auscultation at present. Abdomen is soft and nontender. A.m. labs revealed persistent elevated WBC at 32,800 the patient received a steroid injection to her hip last week. A.m. sodium is 134 with a potassium of 5.1. Her creatinine remains elevated at 3.2. She has a urinary tract in traction with gram-negative rods and C&S is pending presently has on empiric Levaquin. Patient is scheduled for a cystoscopic examination this a.m. by Dr. Concepcion. This is to evaluate the right hydronephrosis.. Hopefully there is some correctable obstruction that is causing her renal insufficiency. Will review cystoscopic results and labs later today. 03/29/17 - patient feels some better today main complaint is back pain. Patient had cystoscopic examination with placement of stent yesterday. Slight improvement in renal status today. Urine culture and one blood culture positive for an Enterobacter which is sensitive to present antibiotics. No new problems identified. We'll continue present evaluation and treatment 03/30/17 -patient still complaining of severe back pain. Has pain radiating to groin bilaterally. Her abdominal complaints have resolved. Her creatinine has improved this a.m. is a 2.4. Dr. Concepcion does not plan to do any further evaluation or procedures until next Saturday. If we can control patient's pain will discharge and do further evaluation on an outpatient basis. Patient is not ambulating at present because of pain. Encouraged her to increase activity up in chair ambulating in eric if possible. Will have staff contact Dr. Mitchell to see if he will modify her medications. 03/31/17 -patient is generally stable. Her creatinine has decreased from 3.2 on admission to 1.9 today. Patient states that her back pain is almost unbearable and is affecting her ability to ambulate. Advised patient and family history ready for discharge if we can control her pain. She is being followed by pain clinic and I have asked the staff to contact pain clinic about modifying her medications. Dr. Concepcion plans to do the remaining evaluation on an outpatient basis. Again encourage patient increase activity. 04/01/17 -patient still complaining of severe pain. states that she is not ambulating except to go to the bathroom. Patient states the pain is intensified which may be secondary from staying in bed. Dr. Dunn outpatient yesterday and did not want to change medications. I discussed swing bed placement with and . Both states that they would like to stay for procedure tomorrow and then be discharged home. thinks that he can manage her at home but does not want to take her home and have to bring her back in her present state. She is scheduled for skinny needle biopsy and/or cystoscopic evaluation. Dr. Concepcion we will see in a.m.. She is otherwise stable 04/02/17 -patient still complaining of severe pain. Dr. Concepcion is discussing case with [facility] possible to biopsy. If biopsy is not accessible then patient will be ready for discharge. Patient and stated along that she wanted to go home but now they want to consider swing bed. not sure that he can handle patient and her present state. She is not ambulating. Patient states that her pain is so severe that he has not been ambulating up and go to the bathroom. Will consult social economist to help with placement on discharge 04/03/17-I am entering his note on 04 04 has apparently forgot to place a progress note for 04 03 but I did see the patient will. Patient is doing well except for some persistent pain. Blood pressures have been poorly controlled part of that he is secondary to the amount of discomfort and pain. Will titrate medications. Awaiting placement in swing. 04/04/17 -patient states she is extremely weak. I have been trying every day to have patient get out of bed and ambulate. States she is not eating has no appetite. Unable to do physical therapy yesterday. Blood pressures have been elevated and labile. Most of her pressure readings elevate when her pain and stress elevated. I have modified her medications again this a.m. She was complaining of dyspnea and had some component of fluid overload yesterday. Her chest x-ray was unremarkable BNP was elevated. She has diuresed well and improved this a.m. Her lung peña are clear to auscultation heart regular rate and rhythm. I have titrated blood pressure medications again this a.m. Again encouraged patient and her that she must increase activity and stay out of bed. Cannot go to swing bed until patient starts doing physical therapy. She is ready for discharge back to get the patient ambulate. Consulted dietary today start on protein supplementation. Potassium this a.m. 2.9 from diuretics yesterday. We will give potassium supplementation. Denies any other related complaints. Actually states that her back pain is some better today. Exam (Progress Note) - Constitutional Vitals: Period Temp Pulse Resp BP Sys/Hampton Pulse Ox Last 24 Hr 97.4 F-98.6 F 80-95 18-24 150-200/72-88 94-98 Results - Labs CBC & BMP: 04/04/17 04:41 04/04/17 04:41 Assessment and Plan (1) Acute renal failure Status: Acute Assessment and plan: Patient's creatinine has gone from 1.04 to 3.1 since November. Have consulted nephrology and will order a abdominal CT to make sure that there is no obstruction causing the renal insufficiency Current Visit: Yes (2) UTI (urinary tract infection) Status: Acute Assessment and plan: Patient appears to have an acute urinary tract infection. I have obtained a urine C&S as well as blood cultures. I started on a renal dose of Levaquin for empiric coverage. Current Visit: Yes (3) right ureteral obstruction Status: Acute Current Visit: Yes (4) Chronic low back pain Status: Chronic Assessment and plan: Patient has had chronic ongoing back pain and radicular pain. He is treated by Dr. Mitchell at the pain clinic Current Visit: Yes (5) previous renal calculi Status: Chronic Assessment and plan: No active stone noted at present, has right hydronephrosis Current Visit: Yes (6) Bilateral leg weakness Status: Chronic Assessment and plan: This appears to be chronic in nature. She is followed at the pain clinic and patient states that there has been some progressive weakness in lower extremities but no acute change. We will consult Dr. Mitchell and let him decide if he needs a current MRI. CT of the lumbar spine did not reveal any acute changes Current Visit: Yes (7) peripheral vascular disease Status: Chronic Assessment and plan: Stable at present Current Visit: Yes (8) chronic obstructive pulmonary disease Status: Chronic Assessment and plan: Stable at present Current Visit: Yes (9) obstructive sleep apnea Status: Chronic Assessment and plan: Stable on present treatment Current Visit: Yes (10) essential tremor Status: Chronic Assessment and plan: Tremor has been fairly stable on present meds Current Visit: Yes (11) history DVT Status: Chronic Assessment and plan: Stable at present Current Visit: Yes (12) Hypertension Status: Chronic Assessment and plan: Blood pressure has been stable on present medications Current Visit: Yes Specialty Discharge - Follow Up or Referrals Follow up with: Lupillo Pollack Jr., MD [Physician] - 03/28/17 12:30 pm
[2017-04-04] MEDS: PRIMIDONE 50 MG TABLET PO SCH ×3 (09:14→20:33)
[2017-04-04] MEDS: amLODIPine 10 MG TABLET PO SCH (09:14)
[2017-04-04] MEDS: PANTOPRAZOLE 40 MG TABLET PO SCH (09:14)
[2017-04-04] MEDS: ESTRADIOL 2 MG TABLET PO SCH (09:14)
[2017-04-04] MEDS: ASPIRIN EC 325 MG TABLET PO SCH (09:14)
[2017-04-04] MEDS: DONEPEZIL 10 MG TABLET PO SCH (09:14)
[2017-04-04] MEDS: DOCUSATE SODIUM 100 MG CAPSULE PO SCH ×2 (09:15→20:33)
[2017-04-04] MEDS: CARVEDILOL 6.25 MG TABLET PO SCH ×2 (09:15→20:32)
[2017-04-04] MEDS: FUROSEMIDE 40 MG TABLET PO SCH (09:15)
[2017-04-04] MEDS: MAGNESIUM CHLORIDE 64 MG TABLET PO SCH ×2 (09:29→20:33)
[2017-04-04] MEDS: POTASSIUM CHLORIDE RIDER 10 MEQ in PREMIX 1 EACH IV SCH ×5 (09:31→15:06)
[2017-04-04] MEDS: ENOXAPARIN 40 MG/0.4 ML SYRINGE SUBCUT SCH (09:40)
[2017-04-04] MEDS: SODIUM CHLORIDE 0.9% 1,000 ML IV SCH (10:39)
--- NOTE | 2017-04-04 11:22 | XRay Report ---
2 view chest April 04, 2017 at 0901 hours Indication: Shortness of breath Comparison: Previous day at 0831 hours Findings: Cardiomediastinal contours are normal. Bibasilar atelectasis and pleural effusions are unchanged. No acute osseous abnormalities. Visualized upper abdomen demonstrates no acute pathology. Impression: Stable bibasilar atelectasis and effusions PROCEDURE INTERPRETED AT [facility] DEPARTMENT OF RADIOLOGY Final Report Signed by: Darrion Rolle
--- NOTE | 2017-04-04 13:31 | Pain Management Progress Note ---
Assessment and Plan (1) Lumbar degenerative disc disease Problem details: 2-3 week history of increasing back and lower abdominal pain Status: Acute Assessment and plan: 04/04/2017. The patient's back pain is improved. She is now walking into the eric with physical therapy. I do think that she is approaching the time where she can be transferred to a swing bed. Again, her back pain has improved. n 04/03/2017. Patient's back pain has improved somewhat. She is having increasing shortness of breath. Will continue to follow with you. n 04/02/2017. Patient continues to have low back and abdominal pain. Continued workup of retroperitoneal mass by urology underway. She also has significant mechanical low back pain complicated by deconditioning and being in bed so long. Did strongly urge her to mobilize. Will increase the hydrocodone product to every 6 from q. 8. Agree with plans. y 03/28/2017. Patient continues to have similar complaints. For workup. I do not think that her knee pain is spinal in origin. I will be out for the next 4 days but please have the nursing staff call if there is any questions. n 03/27/2017. The patient is very pleasant 81-year-old female well-known to me and is a patient of mine. We treated her low back for lumbar facet arthropathy manage her medically for her lumbar spinal pain. She developed to 3 weeks ago increasing low back pain that radiated into the groin and lower abdominal abdomen bilaterally. She denies any injury. Is a throbbing aching discomfort. CT scan which are reviewed demonstrates degenerative changes and fairly marked collapse at the L4-5 level but no acute changes are seen. No compression fractures are noted. Moderate canal narrowing is present but not severe. At this point I do not think it MRI is medically necessary. Worry about potential of a GI or source of her pain. I will continue to follow with you. y Current Visit: Yes Pain - Subjective Interval history: "I am better" Exam - Constitutional Vitals: Period Temp Pulse Resp BP Sys/Hampton Pulse Ox Last 24 Hr 97.4 F-98.6 F 80-95 18-24 150-200/75-88 97-98 Results - Labs CBC & BMP: 04/04/17 04:41 04/04/17 04:41 Specialty Discharge - Follow Up or Referrals Follow up with: Lupillo Pollack Jr., MD [Physician] - 03/28/17 12:30 pm
--- NOTE | 2017-04-04 18:05 | ECHO Report ---
Caridad Kingston 04/04/2017 Exam Date: 09:16 Referring Physician: Veronica Lepe Technologist: KAYDEN Age: 81 Ht (in): 63 Wt (lb): 141 FExam Location: [facility] Gender: Echo [id number]: HTN, ADRIANNA, COPD, PVD, Hx. DVT, utereIndications:teral obstruction, ARF BP: 167 / 84 HR: 96 SinusRhythm: GoodTechnical Quality: IMPRESSIONS Left ventricular ejection fraction is estimated at > 55 %. Moderate apical LAE. Mildly thickened mitral valve with mild to moderate mitral regurgitation. Trace tricuspid valve regurgitation. Tricuspid regurgitation velocities suggest a PAP of 33.9 mmHg + RAP. Trace pulmonary valve regurgitation. MEASUREMENTS (Male / Female) Normal Values 2D ECHO LV Diastolic Diameter PLAX 4.0 cm 4.2 - 5.9 / 3.9 - 5.3 cm LV Systolic Diameter PLAX 2.2 cm LV Fractional Shortening PLAX 44.6 % IVS Diastolic Thickness 0.9 cm 0.6 - 1.0 / 0.6 - 0.9 cm LVPW Diastolic Thickness 1.0 cm 0.6 - 1.0 / 0.6 - 0.9 cm RV Internal Dim ED PLAX 2.5 cm Aortic Root Diameter 2.7 cm LA Systolic Diameter LX 4.1 cm 3.0 - 4.0 / 2.7 - 3.8 cm DOPPLER TR Peak Velocity 291.0 cm/s TR Peak Gradient 33.9 mmHg FINDINGS Left Ventricle Normal left ventricular cavity size. Left ventricular ejection fraction is estimated at > 55 %. Right Ventricle Normal right ventricular size. Right Atrium The right atrium is mildly enlarged. Left Atrium Moderate apical LAE Mitral Valve Mildly thickened mitral valve with mild to moderate mitral regurgitation. Aortic Valve The aortic valve is trileaflet and has normal motion. Tricuspid Valve Morphologically normal tricuspid valve. Trace tricuspid valve regurgitation. Tricuspid regurgitation velocities suggest a PAP of 33.9 mmHg + RAP. Pulmonic Valve Morphologically normal pulmonic valve. Trace pulmonary valve regurgitation. Pericardium No pericardial effusion. Aorta Normal size aortic root and proximal ascending aorta. Anjel Escalera MD (Electronically Signed) 04 April 2017 Final Date: 18:04
[2017-04-04] MEDS: ALPRAZolam 0.5 MG TABLET PO SCH (20:33)
--- NOTE | 2017-04-05 07:36 | Urology Progress Note ---
Urology - PN: Subj Interval history: The patient is voiding but after 2 days I still do not have a single residual urine recorded in the chart. I have asked the nurse to again do an in and out cath for residual every 8 hours and as needed and I will also get a bladder scan so that hopefully sometime today I have an idea of what his residual urine is Exam - Constitutional Vitals: Period Temp Pulse Resp BP Sys/Hampton Pulse Ox Last 24 Hr 97.4 F-979 F 77-93 18-24 137-191/64-94 90-98 Results - Labs CBC & BMP: 04/04/17 04:41 04/04/17 04:41 Specialty Discharge - Follow Up or Referrals Follow up with: Lupillo Pollack Jr., MD [Physician] - 03/28/17 12:30 pm
--- NOTE | 2017-04-05 07:48 | Urology Progress Note ---
Urology - PN: Subj Interval history: The previous progress note was written on the wrong patient by mistake. The patient is tolerating her stent well. I have nothing else to offer at this point. I will follow the patient in the office in 2 weeks and she will need further evaluation to determine etiology of the right ureteral obstruction. I will see again if needed Exam - Constitutional Vitals: Period Temp Pulse Resp BP Sys/Hampton Pulse Ox Last 24 Hr 97.4 F-979 F 77-93 18-24 137-191/64-94 90-98 Results - Labs CBC & BMP: 04/04/17 04:41 04/04/17 04:41 Specialty Discharge - Follow Up or Referrals Follow up with: Lupillo Pollack Jr., MD [Physician] - 03/28/17 12:30 pm
[2017-04-05 08:20] LABS: Basophils # 0.1 10*3/uL (0.0-0.2); Basophils % 0.3 % (0.0-0.8); Eosinophils # 0.2 10*3/uL (0.0-0.87); Eosinophils % 1.1 % (0.00-10.9); Hematocrit 27.6 VOL% (35.7-47.0); Hemoglobin 9.2 GM/DL (12.0-16.0); Immature Granulocytes % 1.2 %; Immature Granulocytes Absolute 0.22 #; Lymphocytes # 2.2 10*3/uL (1.4-4.0); Lymphocytes % 11.7 % (21.3-54.2); Mean Corpuscular HGB Conc 33.3 GM/DL (32-36); Mean Corpuscular Hemoglobin 30 PG (27-34); Mean Corpuscular Volume 89.3 FL (87-102); Mean Platelet Volume 12.4 FL (9.6-12.0); Monocytes # 0.9 10*3/uL (0.11-0.8); Monocytes % 4.8 % (1.7-12.7); Neutrophils # 15.1 10*3/uL (1.4-7.4); Neutrophils % 80.9 % (38.7-73.9); Platelet Count 292 T/CUMM (130-400); Red Blood Count 3.09 MC/CUMM (3.8-5.5); Red Cell Distribution Width 15.4 % (9.3-17.3); White Blood Count 18.7 T/CUMM (4-12)
--- NOTE | 2017-04-05 08:32 | Internal Med Progress Note ---
Assessment and Plan (1) Chronic low back pain Status: Chronic Assessment and plan: 81-year-old female admitted to acute care * Acute renal failure. Resolved * Chronic back pain. She is started on therapy. She is getting pain medications per pain clinic * Hypokalemia. Potassium was replaced yesterday labs are pending today * Hypertension. Blood pressure is stable * Discussed with patient and her . She will benefit from swing bed placement. Waiting for her insurance to approve Current Visit: Yes (2) Hypertension Status: Chronic Current Visit: Yes (3) chronic obstructive pulmonary disease Status: Chronic Current Visit: Yes (4) obstructive sleep apnea Status: Chronic Current Visit: Yes (5) peripheral vascular disease Status: Chronic Current Visit: Yes Internal Medicine - PN: Subj Interval history: 81-year-old female with history of multiple medical problems including hypertension, dementia, chronic low back pain who was admitted with abdominal pain and low back pain. She was found to have renal insufficiency and underwent a stent placement. Her renal failure has resolved. She continues to have low back pain and has been having difficulty getting up and getting out of her bed. Her blood pressure has been quite high but is getting better. She is waiting for insurance to allow her to go to swing bed. She feels quite weak this morning. Exam (Progress Note) - Constitutional Vitals: Period Temp Pulse Resp BP Sys/Hampton Pulse Ox Last 24 Hr 97.4 F-979 F 77-93 18-24 137-227/64-97 90-98 Exam: Gen.: Alert and oriented x3. ENT: Pupils equal round reactive to light. Mucous membranes moist. Neck: Supple. No JVD or bruit. Cardiovascular: Regular rate and rhythm. No murmur rub or gallop Lungs: Clear Abdomen: Soft. Nontender. Mild distention Extremities: No edema Results - Labs CBC & BMP: 04/05/17 06:05 04/04/17 04:41 Lab Results: I have reviewed the past 24 hour labs Specialty Discharge - Follow Up or Referrals Follow up with: Lupillo Pollack Jr., MD [Physician] - 03/28/17 12:30 pm
[2017-04-05 08:53] LABS: Albumin 2.3 G/DL (3.4-5.0); Bilirubin,Total 0.8 MG/DL (0.2-1.0); Calcium 7.1 MG/DL (8.5-10.1); Osmolality,Calculated 280.5 MOS/KG (273-304); Potassium 3.1 MMOL/L (3.5-5.1); Total Protein 6.2 G/DL (6.4-8.3)
[2017-04-05] MEDS: hydrALAZINE 20 MG/1 ML VIAL IV PRN (08:59)
[2017-04-05] MEDS: FUROSEMIDE 40 MG TABLET PO SCH (09:42)
[2017-04-05] MEDS: ASPIRIN EC 325 MG TABLET PO SCH (09:42)
[2017-04-05] MEDS: amLODIPine 10 MG TABLET PO SCH (09:42)
[2017-04-05] MEDS: ESTRADIOL 2 MG TABLET PO SCH (09:43)
[2017-04-05] MEDS: DOCUSATE SODIUM 100 MG CAPSULE PO SCH ×2 (09:43→22:03)
[2017-04-05] MEDS: DONEPEZIL 10 MG TABLET PO SCH (09:45)
[2017-04-05] MEDS: MAGNESIUM CHLORIDE 64 MG TABLET PO SCH ×2 (10:31→21:56)
[2017-04-05] MEDS: CARVEDILOL 6.25 MG TABLET PO SCH ×2 (10:31→21:57)
[2017-04-05] MEDS: PANTOPRAZOLE 40 MG TABLET PO SCH (10:32)
[2017-04-05] MEDS: PRIMIDONE 50 MG TABLET PO SCH ×3 (10:32→21:57)
[2017-04-05] MEDS: ENOXAPARIN 40 MG/0.4 ML SYRINGE SUBCUT SCH (10:32)
[2017-04-05] MEDS: POTASSIUM CHLORIDE 8 MEQ CAPSULE PO SCH ×2 (11:51→21:57)
[2017-04-05] MEDS: ALPRAZolam 0.5 MG TABLET PO SCH (21:57)
[2017-04-05 23:01] LABS: Apearance,Urine CLEAR (Clear); Bacteria,Urine Moderate /HPF (Few); Bilirubin,Urine Negative (Negative); Blood, Urine Negative (Negative); Glucose,Urine (UA) 50 mg/dL (Negative); Hyaline Casts,Urine 3 /LPF (0-3); Ketones,Urine Negative (Negative); Nitrite,Urine Negative (Negative); Protein,Urine 100 MG/DL; RBC,Urine 1 /HPF (0-4); Squamous Epithelial Cell,Urine Occasional /HPF (0-10); Urine Color Yellow (Yellow); Urine Specific Gravity 1.009 (1.001-1.035); Urine Urobilinogen < 2.0 EU/DL (0.2-1.0); WBC,Urine 4 /HPF (0-6)
[2017-04-06 06:11] LABS: Basophils # 0.1 10*3/uL (0.0-0.2); Basophils % 0.4 % (0.0-0.8); Eosinophils # 0.3 10*3/uL (0.0-0.87); Eosinophils % 1.7 % (0.00-10.9); Hematocrit 27.6 VOL% (35.7-47.0); Hemoglobin 9.2 GM/DL (12.0-16.0); Immature Granulocytes % 0.7 %; Immature Granulocytes Absolute 0.11 #; Lymphocytes # 2.2 10*3/uL (1.4-4.0); Lymphocytes % 14.8 % (21.3-54.2); Mean Corpuscular HGB Conc 33.3 GM/DL (32-36); Mean Corpuscular Hemoglobin 30 PG (27-34); Mean Corpuscular Volume 89.3 FL (87-102); Mean Platelet Volume 11.8 FL (9.6-12.0); Monocytes % 6.7 % (1.7-12.7); Neutrophils # 11.1 10*3/uL (1.4-7.4); Neutrophils % 75.7 % (38.7-73.9); Platelet Count 314 T/CUMM (130-400); Red Blood Count 3.09 MC/CUMM (3.8-5.5); Red Cell Distribution Width 15.6 % (9.3-17.3); White Blood Count 14.7 T/CUMM (4-12)
[2017-04-06] MEDS: DONEPEZIL 10 MG TABLET PO SCH (10:16)
[2017-04-06] MEDS: amLODIPine 10 MG TABLET PO SCH (10:16)
[2017-04-06] MEDS: ESTRADIOL 2 MG TABLET PO SCH (10:16)
[2017-04-06] MEDS: POTASSIUM CHLORIDE 8 MEQ CAPSULE PO SCH ×2 (10:16→21:07)
[2017-04-06] MEDS: MAGNESIUM CHLORIDE 64 MG TABLET PO SCH ×2 (10:17→21:07)
[2017-04-06] MEDS: CARVEDILOL 6.25 MG TABLET PO SCH ×2 (10:17→21:08)
[2017-04-06] MEDS: FUROSEMIDE 40 MG TABLET PO SCH (10:18)
[2017-04-06] MEDS: PANTOPRAZOLE 40 MG TABLET PO SCH (10:18)
[2017-04-06] MEDS: ASPIRIN EC 325 MG TABLET PO SCH (10:18)
[2017-04-06] MEDS: ENOXAPARIN 40 MG/0.4 ML SYRINGE SUBCUT SCH (10:22)
[2017-04-06] MEDS: DOCUSATE SODIUM 100 MG CAPSULE PO SCH ×2 (10:22→21:08)
[2017-04-06] MEDS: PRIMIDONE 50 MG TABLET PO SCH ×3 (10:23→21:08)
--- NOTE | 2017-04-06 17:15 | Internal Med Progress Note ---
Assessment and Plan (1) Acute renal failure Status: Acute Current Visit: Yes (2) Hydronephrosis, right Status: Acute Current Visit: Yes (3) Lumbar degenerative disc disease Problem details: 2-3 week history of increasing back and lower abdominal pain Status: Chronic Current Visit: Yes (4) UTI (urinary tract infection) Status: Acute Current Visit: Yes (5) right ureteral obstruction Status: Chronic Current Visit: Yes (6) Bilateral leg weakness Status: Chronic Current Visit: Yes (7) Chronic low back pain Status: Chronic Current Visit: Yes (8) Hypertension Status: Chronic Current Visit: Yes Qualifiers: Hypertension type: essential hypertension Qualified Code(s): I10 - Essential (primary) hypertension (9) chronic obstructive pulmonary disease Status: Chronic Current Visit: Yes (10) history DVT Status: Chronic Current Visit: Yes (11) obstructive sleep apnea Status: Chronic Current Visit: Yes (12) peripheral vascular disease Status: Chronic Current Visit: Yes (13) previous renal calculi Status: Chronic Current Visit: Yes Internal Medicine - PN: Subj Interval history: This is a 81 year old female patient of Dr. Winter with history of HTN, renal stones, COPD, renal insufficiency, OA and chronic back pain, recurrent UTI, generalized weakness, ADRIANNA, peripheral vascular disease, history of DVT, who presented to ER with acute renal failure and right ureteral obstruction. She is followed by Dr. Concepcion who placed stent in kidney. Renal function has steadily improved. She has been awaiting swing bed placement, but she has voiced interest in going home to Home Health. She would like to have [facility]. Potassium will need to be replaced and adjustments to antihypertensives. Will discharge tomorrow. Exam (Progress Note) - Constitutional Vitals: Period Temp Pulse Resp BP Sys/Hampton Pulse Ox Last 24 Hr 97.1 F-98.4 F 88-95 16-20 142-217/77-101 92-98 General appearance: no acute distress - Head Head exam: Present: normocephalic - Eye Eye exam: Present: EOMI - Respiratory Respiratory exam: Present: clear to auscultation bilaterally - Cardiovascular Cardiovascular exam: Present: regular rate and rhythm - GI/Abdominal GI/Abdominal exam: Present: normal bowel sounds, soft - Extremities Exam Extremities exam: Absent: edema - Neurological Exam Neurological exam: Present: alert, oriented X3 - Psychiatric Psychiatric exam: Present: normal mood - Skin Skin exam: Present: warm, dry Results - Labs CBC & BMP: 04/07/17 06:01 04/07/17 06:01 Specialty Discharge - Follow Up or Referrals Follow up with: Lupillo Pollack Jr., MD [Physician] - 03/28/17 12:30 pm
[2017-04-06] MEDS: ALPRAZolam 0.5 MG TABLET PO SCH (21:06)
[2017-04-06] MEDS ORDERED: POTASSIUM CHLORIDE 20 MEQ TABLET PO ONE (22:32)
[2017-04-06] MEDS ORDERED: POTASSIUM CHLORIDE 20 MEQ TABLET PO SCH (22:33)
[2017-04-06 23:30] LABS: Calcium 6.8 MG/DL (8.5-10.1); Magnesium 1.8 MG/DL (1.8-2.4); Osmolality,Calculated 277.7 MOS/KG (273-304); Potassium 3.1 MMOL/L (3.5-5.1)
[2017-04-07 06:58] LABS: Basophils # 0.1 10*3/uL (0.0-0.2); Basophils % 0.7 % (0.0-0.8); Eosinophils # 0.3 10*3/uL (0.0-0.87); Eosinophils % 2.7 % (0.00-10.9); Hematocrit 28.7 VOL% (35.7-47.0); Hemoglobin 9.4 GM/DL (12.0-16.0); Immature Granulocytes % 0.7 %; Immature Granulocytes Absolute 0.09 #; Lymphocytes # 2.2 10*3/uL (1.4-4.0); Lymphocytes % 16.8 % (21.3-54.2); Mean Corpuscular HGB Conc 32.8 GM/DL (32-36); Mean Corpuscular Hemoglobin 30 PG (27-34); Mean Corpuscular Volume 90.3 FL (87-102); Mean Platelet Volume 11.8 FL (9.6-12.0); Monocytes # 1.1 10*3/uL (0.11-0.8); Monocytes % 8.4 % (1.7-12.7); Neutrophils # 9.1 10*3/uL (1.4-7.4); Neutrophils % 70.7 % (38.7-73.9); Platelet Count 376 T/CUMM (130-400); Red Blood Count 3.18 MC/CUMM (3.8-5.5); Red Cell Distribution Width 15.7 % (9.3-17.3); White Blood Count 12.8 T/CUMM (4-12)
[2017-04-07 07:29] LABS: Albumin 2.3 G/DL (3.4-5.0); Bilirubin,Total 0.8 MG/DL (0.2-1.0); Calcium 7.3 MG/DL (8.5-10.1); Osmolality,Calculated 279.5 MOS/KG (273-304); Potassium 4.6 MMOL/L (3.5-5.1); Total Protein 6.4 G/DL (6.4-8.3)
[2017-04-07] MEDS: FUROSEMIDE 40 MG TABLET PO SCH (09:18)
[2017-04-07] MEDS: MAGNESIUM CHLORIDE 64 MG TABLET PO SCH (09:18)
[2017-04-07] MEDS: ASPIRIN EC 325 MG TABLET PO SCH (09:18)
[2017-04-07] MEDS: DONEPEZIL 10 MG TABLET PO SCH (09:18)
[2017-04-07] MEDS: amLODIPine 10 MG TABLET PO SCH (09:18)
[2017-04-07] MEDS: CARVEDILOL 6.25 MG TABLET PO SCH (09:18)
[2017-04-07] MEDS: ESTRADIOL 2 MG TABLET PO SCH (09:18)
[2017-04-07] MEDS: ENOXAPARIN 40 MG/0.4 ML SYRINGE SUBCUT SCH (11:56)
[2017-04-07] MEDS: DOCUSATE SODIUM 100 MG CAPSULE PO SCH ×2 (11:57→12:01)
[2017-04-07] MEDS: PRIMIDONE 50 MG TABLET PO SCH ×2 (11:57→15:32)
[2017-04-07] MEDS: PANTOPRAZOLE 40 MG TABLET PO SCH (11:57)
[2017-04-07] MEDS: hydrALAZINE 20 MG/1 ML VIAL IV PRN (15:32)
--- NOTE | 2017-04-07 15:35 | Discharge Summary ---
Hospital Course - Hospital Course Hospital Course: This is a 81 year old female patient of Dr. Winter with history of HTN, renal stones, COPD, renal insufficiency, OA and chronic back pain, recurrent UTI, generalized weakness, ADRIANNA, peripheral vascular disease, history of DVT, who presented to ER with acute renal failure and right ureteral obstruction. She is followed by Dr. Concepcion who placed stent in kidney. Renal function has steadily improved. She has been awaiting swing bed placement, but she has voiced interest in going home to Home Health. She would like to have [facility]. Potassium will need to be replaced and adjustments to antihypertensives. Will discharge to home. Diagnosis - Discharge Diagnosis (1) Acute renal failure Status: Resolved (2) Hydronephrosis, right Status: Acute (3) Lumbar degenerative disc disease Status: Chronic (4) UTI (urinary tract infection) Status: Acute (5) right ureteral obstruction Status: Chronic (6) Bilateral leg weakness Status: Chronic (7) Chronic low back pain Status: Chronic (8) Hypertension Status: Chronic (9) chronic obstructive pulmonary disease Status: Chronic (10) history DVT Status: Chronic (11) obstructive sleep apnea Status: Chronic (12) peripheral vascular disease Status: Chronic (13) previous renal calculi Status: Chronic Specialty Discharge - Follow Up or Referrals Discharge Plan - Discharge Data Disposition: Home Health Service Condition at Discharge: Stable Discharge Diet: low fat, low cholesterol Activity: as per physical therapy, increase activity as tolerated - Discharge Medications New cloNIDine TAB [Catapres Tab] 0.3 mg PO BID #60 tablet Docusate Sodium Cap [Colace Cap] 100 mg PO BID capsule Furosemide Tab [Lasix Tab] 40 mg PO QAM #30 tablet hydrALAZINE TAB [Apresoline Tab] 25 mg PO TID #90 tablet Potassium Chloride Cap/Tab [K Dur] 20 meq PO AC BREAKFAST #30 tablet Acetaminophen Tab [Tylenol Tab] 650 mg PO Q6H PRN tablet PRN Reason: Fever > 100.4 Or Headache amLODIPine [Norvasc] 10 mg PO DAILY #30 tablet Magnesium Chloride [Slow Mag] 128 mg PO BID tablet Continue Carvedilol 6.25 mg PO BID Primidone 100 mg PO TID Omeprazole 40 mg PO QAM Estradiol Tab [Estrace Tab] 2 mg PO QAM Donepezil HCl 1 mg PO QAM ALPRAZolam [Alprazolam] 2 mg PO BEDTIME Aspirin EC Tab 325 mg PO QAM Changed Hydrocodone/Acetaminophen [[place] 10-325 Tablet] 1 each PO DAILY PRN #0 PRN Reason: Pain Discontinued cloNIDine TAB [Catapres Tab] 0.1 mg PO QAM Amlodipine Besylate/Benazepril [Amlodipine-Benazepril 10-20 mg] 1 each PO QAM Naproxen EC [EC Naprosyn] 500 mg PO BID cloNIDine TAB [Catapres Tab] 0.2 mg PO QPM Furosemide [Furosemide] 4 mg PO QAM Morphine Sulfate [Morphine Sulfate ER] 30 mg PO Q12H - Follow Up or Referral Follow Up: Derick Winter DO [Primary Care Provider] - Tyrel Concepcion MD [Physician] - - Forms/Instructions Instructions: Acute Kidney Injury (DC), Hypertension (DC) Additional Discharge Instructions: Follow up with Dr. Winter within 2 weeks at clinic. Follow up with Dr. Concepcion within 4 weeks at clinic. She will have [facility] to monitor blood pressure and PT/OT for fluctuating hypertension and generalized weakness/unsteady gait. Exam - Constitutional Vitals: Period Temp Pulse Resp BP Sys/Hampton Pulse Ox Last 24 Hr 97.2 F-98.5 F 76-94 16-24 132-207/72-93 92-96 Exam: General appearance: no acute distress - Respiratory Respiratory exam: Present: clear to auscultation bilaterally - Cardiovascular Cardiovascular exam: Present: regular rate and rhythm - GI/Abdominal GI/Abdominal exam: Present: normal bowel sounds, soft - Extremities Exam Extremities exam: Absent: edema - Neurological Exam Neurological exam: Present: alert, oriented X3 - Psychiatric Psychiatric exam: Present: normal mood - Skin Skin exam: Present: warm, dry Discharge Results Procedures and tests throughout hospitalization: Pending Orders 04/05/17 22:00 Urine Culture Routine 04/06/17 06:15 stool [C. Diff Toxins A & B] Routine Labs on day of discharge: Labs from last 24 hours 04/07/17 04/07/17 04/06/17 06:01 06:01 22:44 WBC 12.8 H RBC 3.18 L Hgb 9.4 L Hct 28.7 L MCV 90.3 MCH 30 MCHC 32.8 RDW 15.7 Plt Count 376 MPV 11.8 Neut % (Auto) 70.7 Lymph % (Auto) 16.8 L [place] % (Auto) 8.4 Eos % (Auto) 2.7 Baso % (Auto) 0.7 Neut # (Auto) 9.1 H Lymph # (Auto) 2.2 [place] # (Auto) 1.1 H Eos # (Auto) 0.3 Baso # (Auto) 0.1 Immature Gran % 0.7 Nucleated RBC % 0.0 Immature Gran # 0.09 Nucleated RBCs # 0.00 Immature Plt Fraction 0.0 Sodium 139 138 Potassium 4.6 3.1 L Chloride 104 103 Carbon Dioxide 28 27 Anion Gap 11.6 11.1 BUN 14 15 Creatinine 1.10 H 1.10 H GFR Calculation 45 45 BUN/Creatinine Ratio 12.00 13.00 Glucose 142 H 143 H Calculated Osmolality 279.5 277.7 Calcium 7.3 L 6.8 L Magnesium 2.0 1.8 Total Bilirubin 0.80 AST 81 H ALT 44 Alkaline Phosphatase 92 Total Protein 6.4 Albumin 2.3 L Globulin 4.1 H Albumin/Globulin Ratio 0.5 L Preliminary micro results at discharge 04/05/17 22:00 Urine Culture - Preliminary Urine,Clean Catch Gram Positive Cocci DS: Provider Date of admission: 03/26/17 10:32 Primary care physician: Derick Winter DO Attending physician on admission: Derick Winter DO Consults: 03/26/17 12:31 Consult to Case Mgmt/Social Srvs [CONS] Routine Reason for Case Mgmt/Social Srvs: Discharge Planning 03/26/17 18:07 Consult to Physician [CONS] Routine Comment: acute renal insufficiency Consulting Provider: Edward Donovan Person Notified: GUERLINE Date Notified: 03/27/17 Time Notified: 08:38 03/27/17 08:16 Consult to Physician [CONS] Routine Comment: Back pain with weakness lower extremities, Consulting Provider: Evgeny Mitchell Person Notified: FREDDY Date Notified: 03/27/17 Time Notified: 08:49 03/27/17 13:47 Consult to Physician [CONS] Routine Comment: right hydronephrosis Consulting Provider: Tyrel Concepcion Person Notified: [email or web address] Date Notified: 03/27/17 Time Notified: 14:11 04/02/17 07:59 Consult to Case Mgmt/Social Srvs [CONS] Routine Reason for Case Mgmt/Social Srvs: Discharge Planning Consult Comment: Talk with patient and family about swing bed 04/02/17 08:03 Consult to Physical Therapy [CONS] Routine Reason for Physical Therapy: Ambulation Weakness Start Therapy: Today Consult Comment: Help with ambulation 04/05/17 09:55 Consult to Occupational Therapy [CONS] Routine Reason for Occupational Therapy: Weakness 04/07/17 10:19 Consult to Case Mgmt/Social Srvs [CONS] Routine Reason for Case Mgmt/Social Srvs: Home Health Consult Comment: HH with PT, and nursing services to assist with diet Discharging clinician: Sandra Oropeza DO Expected date of discharge: 04/07/17
[2017-04-07 16:44] VITALS: BP 153/65
== END 2017-04-07 16:49 | disposition home health service (06) | DRG 683 ==
LOC: N.ED 08:02 → N.EDINP 10:32 → N.2E 12:29
PROVIDERS: ADMIT Family Medicine; ATTEND Family Medicine

== ENCOUNTER 2018-01-09 15:34 | Inpatient (IN) ==
[2018-01-09] MEDS ORDERED: ONDANSETRON 4 MG/2 ML VIAL IV PRN (16:12)
[2018-01-09] MEDS ORDERED: MAGNESIUM HYDROXIDE SUSP 30 ML UDCUP PO PRN (16:12)
[2018-01-09] MEDS ORDERED: ACETAMINOPHEN 325 MG TABLET PO PRN (16:12)
[2018-01-09] MEDS ORDERED: SODIUM CHLORIDE 0.45% 1,000 ML IV SCH (16:30)
[2018-01-09 17:18] LABS: Basophils # 0.1 10*3/uL (0.0-0.2); Basophils % 0.7 % (0.0-0.8); Eosinophils # 0.5 10*3/uL (0.0-0.87); Hematocrit 30.1 VOL% (35.7-47.0); Hemoglobin 9.3 GM/DL (12.0-16.0); Immature Granulocytes % 0.8 %; Lymphocytes # 1.8 10*3/uL (1.4-4.0); Lymphocytes % 15.3 % (21.3-54.2); Mean Corpuscular HGB Conc 30.9 GM/DL (32-36); Mean Corpuscular Hemoglobin 29 PG (27-34); Mean Corpuscular Volume 94.7 FL (87-102); Mean Platelet Volume 11.3 FL (9.6-12.0); Monocytes % 8.3 % (1.7-12.7); Neutrophils # 8.5 10*3/uL (1.4-7.4); Neutrophils % 70.9 % (38.7-73.9); Platelet Count 242 T/CUMM (130-400); Red Blood Count 3.18 MC/CUMM (3.8-5.5); Red Cell Distribution Width 17.7 % (9.3-17.3)
[2018-01-09 17:43] LABS: Albumin 3.6 G/DL (3.4-5.0); Bilirubin,Total 0.7 MG/DL (0.2-1.0); Calcium 8.1 MG/DL (8.5-10.1); Potassium 4.4 MMOL/L (3.5-5.1); Total Protein 8.2 G/DL (6.4-8.3)
[2018-01-09 17:49] LABS: Troponin I Only 0.137 NG/ML (0.00-0.045)
[2018-01-09] MEDS: PANTOPRAZOLE 40 MG TABLET PO SCH (18:00)
[2018-01-09 18:34] LABS: Apearance,Urine CLOUDY (Clear); Bacteria,Urine Moderate /HPF (Few); Bilirubin,Urine Negative (Negative); Blood, Urine Moderate mg/dL (Negative); Glucose,Urine (UA) Negative (Negative); Hyaline Casts,Urine 2 /LPF (0-3); Ketones,Urine Negative (Negative); Nitrite,Urine Positive (Negative); Protein,Urine 100 MG/DL; RBC,Urine 98 /HPF (0-4); Squamous Epithelial Cell,Urine Occasional /HPF (0-10); Urine Specific Gravity 1.008 (1.001-1.035); WBC,Urine 312 /HPF (0-6)
[2018-01-09 18:35] LABS: Urine Color ORANGE (Yellow)
[2018-01-09] MEDS ORDERED: traZODone 50 MG TABLET PO PRN (18:52)
[2018-01-09] MEDS ORDERED: ALBUTEROL/IPRATROPIUM 3 ML NEB RESP TX PRN (19:54)
[2018-01-09] MEDS ORDERED: FUROSEMIDE 40 MG/4 ML VIAL IV ONE (20:00)
[2018-01-09] MEDS ORDERED: LEVOFLOXACIN INJ 500 MG in PREMIX 1 EACH IV ONE (20:00)
[2018-01-09 20:21] LABS: Troponin I Only 0.127 NG/ML (0.00-0.045)
[2018-01-09] MEDS ORDERED: ALPRAZolam 0.5 MG TABLET PO SCH (21:00)
[2018-01-09] MEDS ORDERED: ENOXAPARIN 30 MG/0.3 ML SYRINGE SUBCUT SCH (21:00)
[2018-01-09] MEDS: ALBUTEROL/IPRATROPIUM 3 ML NEB RESP TX SCH (21:30)
[2018-01-09] MEDS ORDERED: methylPREDNISolone SOD SUC 40 MG/1 ML VIAL IV ONE (21:47)
[2018-01-09] MEDS: BUDESONIDE 0.5 MG/2 ML NEB RESP TX SCH (22:05)
[2018-01-09] MEDS: TAMSULOSIN 0.4 MG CAPSULE PO SCH (22:39)
[2018-01-09] MEDS: CARVEDILOL 6.25 MG TABLET PO SCH (22:39)
[2018-01-09] MEDS: PRIMIDONE 50 MG TABLET PO SCH (22:39)
[2018-01-09] MEDS: ENOXAPARIN 60 MG/0.6 ML SYRINGE SUBCUT SCH (22:39)
[2018-01-09] MEDS: hydrALAZINE 25 MG TABLET PO SCH (22:39)
[2018-01-09] MEDS: ISOSORBIDE MONONITRATE 30 MG TABLET PO SCH (22:40)
[2018-01-09 22:51] LABS: ABG Base Excess -6.9 MMOL/L (-2.5-2.5); ABG HCO3 21.3 MMOL/L (20-26); ABG Oxygen Saturation 90.3 % (95-100); ABG PCO2 57.1 MM HG (35-48); ABG PO2 82.1 MM HG (80-95); ABG TCO2 23.1 MMOL/L (23-27); Allen Test Positive; Pt O2 Delivery Device Venturi Mask
[2018-01-09 22:59] LABS: Amorphous Crystals,Urine Occasional /HPF (Few); Apearance,Urine CLOUDY (Clear); Bilirubin,Urine Negative (Negative); Blood, Urine Moderate mg/dL (Negative); Glucose,Urine (UA) Negative (Negative); Ketones,Urine Negative (Negative); Nitrite,Urine Positive (Negative); Protein,Urine 100 MG/DL; RBC,Urine 90 /HPF (0-4); Urine Color Amber (Yellow); Urine Specific Gravity 1.006 (1.001-1.035); Urine Urobilinogen < 2.0 EU/DL (0.2-1.0); WBC,Urine 276 /HPF (0-6)
[2018-01-09] MEDS ORDERED: VECURONIUM 10 MG VIAL IV ONE (23:01)
[2018-01-09] MEDS ORDERED: ETOMIDATE 20 MG/10 ML VIAL IV ONE (23:01)
[2018-01-09 23:07] LABS: Troponin I Only 0.087 NG/ML (0.00-0.045)
[2018-01-09] MEDS ORDERED: SUCCINYLCHOLINE 200 MG/10 ML VIAL ONE (23:07)
[2018-01-09] MEDS ORDERED: PROPOFOL 1,000 MG/100 ML BOTTLE IV ONE (23:12)
[2018-01-09] MEDS: NITROGLYCERIN DRIP 50 MG/250 ML BOTTLE IV PRN (23:30)
[2018-01-09] MEDS: PROPOFOL 1,000 MG/100 ML BOTTLE IV SCH (23:30)
[2018-01-10 00:55] LABS: ABG Base Excess -5.5 MMOL/L (-2.5-2.5); ABG HCO3 20.3 MMOL/L (20-26); ABG Oxygen Saturation 97.5 % (95-100); ABG PCO2 40.7 MM HG (35-48); ABG PH 7.315 (7.35-7.45); ABG PO2 149.7 MM HG (80-95); ABG TCO2 21.5 MMOL/L (23-27)
[2018-01-10] MEDS: SODIUM CHLORIDE 0.9% 1,000 ML IV SCH ×3 (02:25→19:16)
[2018-01-10] MEDS: ALBUTEROL/IPRATROPIUM 3 ML NEB RESP TX SCH ×6 (03:26→23:35)
[2018-01-10] MEDS: PROPOFOL 1,000 MG/100 ML BOTTLE IV SCH ×3 (03:40→18:01)
[2018-01-10 05:45] LABS: Basophils % 0.1 % (0.0-0.8); Hematocrit 26.5 VOL% (35.7-47.0); Hemoglobin 8.4 GM/DL (12.0-16.0); Immature Granulocytes Absolute 0.15 #; Lymphocytes # 0.9 10*3/uL (1.4-4.0); Lymphocytes % 5.9 % (21.3-54.2); Mean Corpuscular HGB Conc 31.7 GM/DL (32-36); Mean Corpuscular Hemoglobin 30 PG (27-34); Mean Corpuscular Volume 94.3 FL (87-102); Mean Platelet Volume 11.4 FL (9.6-12.0); Monocytes # 0.4 10*3/uL (0.11-0.8); Neutrophils # 13.1 10*3/uL (1.4-7.4); Platelet Count 231 T/CUMM (130-400); Red Blood Count 2.81 MC/CUMM (3.8-5.5); Red Cell Distribution Width 17.2 % (9.3-17.3); White Blood Count 14.5 T/CUMM (4-12)
[2018-01-10 06:24] LABS: Albumin 2.9 G/DL (3.4-5.0); Bilirubin,Total 0.9 MG/DL (0.2-1.0); Calcium 7.8 MG/DL (8.5-10.1); Potassium 4.9 MMOL/L (3.5-5.1); Total Protein 6.8 G/DL (6.4-8.3)
[2018-01-10 06:27] LABS: Risk Ratio 2.45; VLDL CHOLESTEROL 24.6 MG/DL
[2018-01-10 06:35] LABS: Free T4 (Free Thyroxine) 1.18 NG/DL (0.76-1.46); Thyroid Stimulating Hormone 0.594 uIU/ml (0.358-3.74)
[2018-01-10] MEDS ORDERED: POTASSIUM CHLORIDE 20 MEQ TABLET PO SCH (07:30)
[2018-01-10] MEDS: BUDESONIDE 0.5 MG/2 ML NEB RESP TX SCH ×2 (07:45→19:47)
[2018-01-10] MEDS ORDERED: FUROSEMIDE 40 MG TABLET PO SCH (09:00)
[2018-01-10] MEDS ORDERED: DONEPEZIL 10 MG TABLET PO SCH (09:00)
[2018-01-10] MEDS ORDERED: ESTRADIOL 2 MG TABLET PO SCH (09:00)
[2018-01-10] MEDS ORDERED: OXYBUTYNIN 5 MG TABLET PO SCH (09:00)
[2018-01-10] MEDS ORDERED: MAGNESIUM OXIDE 400 MG TABLET PO SCH (09:00)
[2018-01-10] MEDS: PRIMIDONE 50 MG TABLET PO SCH ×3 (10:51→21:55)
[2018-01-10] MEDS: CARVEDILOL 6.25 MG TABLET PO SCH ×2 (10:52→21:55)
[2018-01-10] MEDS ORDERED: FUROSEMIDE 40 MG/4 ML VIAL IV ONE (10:52)
[2018-01-10] MEDS: ASPIRIN EC 325 MG TABLET PO SCH (10:52)
[2018-01-10] MEDS: ISOSORBIDE MONONITRATE 30 MG TABLET PO SCH (11:16)
[2018-01-10] MEDS: TAMSULOSIN 0.4 MG CAPSULE PO SCH (11:16)
[2018-01-10] MEDS: hydrALAZINE 25 MG TABLET PO SCH (11:16)
[2018-01-10] MEDS: PANTOPRAZOLE 40 MG TABLET PO SCH (11:17)
[2018-01-10 12:24] LABS: Troponin I Only 0.092 NG/ML (0.00-0.045)
[2018-01-10 12:28] LABS: Folate 8.1 NG/ML (5.4-24.0)
[2018-01-10] MEDS ORDERED: SODIUM CHLORIDE 0.9% 1,000 ML IV PRN (12:48)
[2018-01-10] MEDS: FLUCONAZOLE INJ 100 MG in IV BAG 1 EACH IV SCH (13:07)
[2018-01-10 15:22] LABS: Troponin I Only 0.108 NG/ML (0.00-0.045)
[2018-01-10] MEDS ORDERED: NEBIVOLOL 5 MG TABLET PO ONE (21:48)
[2018-01-10] MEDS: ENOXAPARIN 60 MG/0.6 ML SYRINGE SUBCUT SCH (21:55)
[2018-01-10] MEDS: LEVOFLOXACIN INJ 250 MG in PREMIX 1 EACH IV SCH (22:00)
[2018-01-11] MEDS: PROPOFOL 1,000 MG/100 ML BOTTLE IV SCH ×4 (00:45→17:45)
[2018-01-11] MEDS: ALBUTEROL/IPRATROPIUM 3 ML NEB RESP TX SCH ×7 (04:03→23:57)
[2018-01-11 04:52] LABS: ABG Base Excess -4.9 MMOL/L (-2.5-2.5); ABG HCO3 20.2 MMOL/L (20-26); ABG Oxygen Saturation 98.3 % (95-100); ABG PCO2 37.5 MM HG (35-48); ABG TCO2 21.4 MMOL/L (23-27)
[2018-01-11 05:00] LABS: Basophils # 0.1 10*3/uL (0.0-0.2); Basophils % 0.5 % (0.0-0.8); Eosinophils # 0.2 10*3/uL (0.0-0.87); Eosinophils % 1.5 % (0.00-10.9); Hematocrit 31.4 VOL% (35.7-47.0); Hemoglobin 10.1 GM/DL (12.0-16.0); Immature Granulocytes % 0.5 %; Immature Granulocytes Absolute 0.08 #; Lymphocytes % 13.1 % (21.3-54.2); Mean Corpuscular HGB Conc 32.2 GM/DL (32-36); Mean Corpuscular Hemoglobin 30 PG (27-34); Mean Corpuscular Volume 92.4 FL (87-102); Mean Platelet Volume 11.4 FL (9.6-12.0); Monocytes # 1.1 10*3/uL (0.11-0.8); Monocytes % 7.3 % (1.7-12.7); Neutrophils # 11.9 10*3/uL (1.4-7.4); Neutrophils % 77.1 % (38.7-73.9); Platelet Count 227 T/CUMM (130-400); Red Cell Distribution Width 17.3 % (9.3-17.3); White Blood Count 15.4 T/CUMM (4-12)
[2018-01-11 05:32] LABS: Calcium 7.9 MG/DL (8.5-10.1); Osmolality,Calculated 282.8 MOS/KG (273-304); Potassium 4.6 MMOL/L (3.5-5.1)
[2018-01-11] MEDS: BUDESONIDE 0.5 MG/2 ML NEB RESP TX SCH ×3 (06:49→23:20)
[2018-01-11] MEDS ORDERED: FUROSEMIDE 40 MG/4 ML VIAL IV ONE (08:30)
[2018-01-11] MEDS: amLODIPine 10 MG TABLET PO SCH (08:54)
[2018-01-11] MEDS: ASPIRIN EC 325 MG TABLET PO SCH (08:55)
[2018-01-11] MEDS: PRIMIDONE 50 MG TABLET PO SCH ×3 (08:55→21:51)
[2018-01-11] MEDS: NEBIVOLOL 5 MG TABLET PO SCH (08:55)
[2018-01-11] MEDS: FLUCONAZOLE INJ 100 MG in IV BAG 1 EACH IV SCH (11:02)
[2018-01-11] MEDS: NITROGLYCERIN DRIP 50 MG/250 ML BOTTLE IV PRN (13:18)
[2018-01-11] MEDS: LEVOFLOXACIN INJ 250 MG in PREMIX 1 EACH IV SCH (21:52)
[2018-01-11] MEDS: ENOXAPARIN 60 MG/0.6 ML SYRINGE SUBCUT SCH (21:52)
[2018-01-12] MEDS: SODIUM CHLORIDE 0.9% 1,000 ML IV SCH ×2 (00:23→11:47)
[2018-01-12] MEDS: PROPOFOL 1,000 MG/100 ML BOTTLE IV SCH ×2 (00:23→07:14)
[2018-01-12] MEDS: MORPHINE 4 MG/1 ML VIAL IV PRN (00:24)
[2018-01-12] MEDS: ALBUTEROL/IPRATROPIUM 3 ML NEB RESP TX SCH ×6 (03:47→23:50)
[2018-01-12 06:31] LABS: ABG Base Excess -1.5 MMOL/L (-2.5-2.5); ABG HCO3 23.2 MMOL/L (20-26); ABG PCO2 38.7 MM HG (35-48); ABG PH 7.387 (7.35-7.45); ABG TCO2 21.2 MMOL/L (23-27)
[2018-01-12 06:33] LABS: Basophils # 0.1 10*3/uL (0.0-0.2); Basophils % 0.4 % (0.0-0.8); Eosinophils # 0.3 10*3/uL (0.0-0.87); Eosinophils % 2.1 % (0.00-10.9); Hematocrit 31.2 VOL% (35.7-47.0); Hemoglobin 9.9 GM/DL (12.0-16.0); Immature Granulocytes % 0.6 %; Immature Granulocytes Absolute 0.08 #; Lymphocytes # 2.3 10*3/uL (1.4-4.0); Lymphocytes % 16.5 % (21.3-54.2); Mean Corpuscular HGB Conc 31.7 GM/DL (32-36); Mean Corpuscular Hemoglobin 30 PG (27-34); Mean Corpuscular Volume 93.4 FL (87-102); Mean Platelet Volume 10.6 FL (9.6-12.0); Monocytes # 1.4 10*3/uL (0.11-0.8); Monocytes % 9.8 % (1.7-12.7); Neutrophils # 9.9 10*3/uL (1.4-7.4); Neutrophils % 70.6 % (38.7-73.9); Platelet Count 245 T/CUMM (130-400); Red Blood Count 3.34 MC/CUMM (3.8-5.5); Red Cell Distribution Width 17.7 % (9.3-17.3); White Blood Count 14.1 T/CUMM (4-12)
[2018-01-12 07:06] LABS: Calcium 7.9 MG/DL (8.5-10.1); Osmolality,Calculated 291.8 MOS/KG (273-304); Potassium 3.7 MMOL/L (3.5-5.1)
[2018-01-12] MEDS: BUDESONIDE 0.5 MG/2 ML NEB RESP TX SCH ×2 (07:39→19:24)
[2018-01-12 08:44] LABS: ABG Base Excess -1.8 MMOL/L (-2.5-2.5); ABG HCO3 22.9 MMOL/L (20-26); ABG Oxygen Saturation 98.3 % (95-100); ABG PCO2 37.3 MM HG (35-48); ABG PH 7.393 (7.35-7.45); ABG TCO2 20.7 MMOL/L (23-27)
[2018-01-12] MEDS: ASPIRIN EC 325 MG TABLET PO SCH (09:09)
[2018-01-12] MEDS: amLODIPine 10 MG TABLET PO SCH (09:09)
[2018-01-12] MEDS: PRIMIDONE 50 MG TABLET PO SCH ×3 (09:10→21:52)
[2018-01-12] MEDS: NEBIVOLOL 5 MG TABLET PO SCH (09:10)
[2018-01-12] MEDS ORDERED: PHENOL 1.4% THROAT SPRAY 177 ML BOTTLE PO PRN (09:45)
[2018-01-12 10:50] LABS: ABG Base Excess -1.3 MMOL/L (-2.5-2.5); ABG HCO3 23.3 MMOL/L (20-26); ABG Oxygen Saturation 97.6 % (95-100); ABG PCO2 36.7 MM HG (35-48); ABG PH 7.405 (7.35-7.45); ABG TCO2 21.1 MMOL/L (23-27)
[2018-01-12] MEDS: LOSARTAN 50 MG TABLET PO SCH (11:35)
[2018-01-12] MEDS: FLUCONAZOLE INJ 100 MG in IV BAG 1 EACH IV SCH (11:35)
[2018-01-12] MEDS: NEBIVOLOL 10 MG TABLET PO SCH (11:36)
[2018-01-12] MEDS: LEVOFLOXACIN INJ 250 MG in PREMIX 1 EACH IV SCH (21:53)
[2018-01-12] MEDS: ENOXAPARIN 60 MG/0.6 ML SYRINGE SUBCUT SCH (21:54)
[2018-01-13] MEDS: PROPOFOL 1,000 MG/100 ML BOTTLE IV SCH (02:34)
[2018-01-13] MEDS: ALBUTEROL/IPRATROPIUM 3 ML NEB RESP TX SCH ×6 (03:33→22:21)
[2018-01-13 05:30] LABS: ABG Base Excess -3.6 MMOL/L (-2.5-2.5); ABG HCO3 21.4 MMOL/L (20-26); ABG Oxygen Saturation 96.7 % (95-100); ABG PCO2 30.7 MM HG (35-48); ABG PH 7.422 (7.35-7.45); ABG TCO2 18.3 MMOL/L (23-27)
[2018-01-13 05:47] LABS: Basophils # 0.1 10*3/uL (0.0-0.2); Basophils % 0.4 % (0.0-0.8); Eosinophils # 0.3 10*3/uL (0.0-0.87); Hematocrit 29.8 VOL% (35.7-47.0); Hemoglobin 9.4 GM/DL (12.0-16.0); Immature Granulocytes % 0.5 %; Immature Granulocytes Absolute 0.08 #; Lymphocytes # 1.9 10*3/uL (1.4-4.0); Mean Corpuscular HGB Conc 31.5 GM/DL (32-36); Mean Corpuscular Hemoglobin 30 PG (27-34); Mean Platelet Volume 11.4 FL (9.6-12.0); Monocytes # 1.4 10*3/uL (0.11-0.8); Monocytes % 9.1 % (1.7-12.7); Platelet Count 206 T/CUMM (130-400); Red Blood Count 3.17 MC/CUMM (3.8-5.5); Red Cell Distribution Width 17.5 % (9.3-17.3); White Blood Count 15.8 T/CUMM (4-12)
[2018-01-13 06:10] LABS: Hypochromasia 1+; Platelet Estimate Adequate
[2018-01-13 06:12] LABS: Calcium 7.7 MG/DL (8.5-10.1); Osmolality,Calculated 287.8 MOS/KG (273-304)
[2018-01-13] MEDS: BUDESONIDE 0.5 MG/2 ML NEB RESP TX SCH ×2 (08:22→19:40)
[2018-01-13] MEDS: LOSARTAN 50 MG TABLET PO SCH (10:46)
[2018-01-13] MEDS: NEBIVOLOL 10 MG TABLET PO SCH (10:46)
[2018-01-13] MEDS: ASPIRIN EC 325 MG TABLET PO SCH (10:46)
[2018-01-13] MEDS: amLODIPine 10 MG TABLET PO SCH (10:46)
[2018-01-13] MEDS: PRIMIDONE 50 MG TABLET PO SCH ×3 (10:46→20:18)
[2018-01-13] MEDS: FLUCONAZOLE INJ 100 MG in IV BAG 1 EACH IV SCH (13:25)
[2018-01-13] MEDS: SODIUM CHLORIDE 0.9% 1,000 ML IV SCH (14:29)
[2018-01-13] MEDS: LINEZOLID INJ 600 MG in PREMIX 1 EACH IV SCH (20:17)
[2018-01-13] MEDS: ENOXAPARIN 60 MG/0.6 ML SYRINGE SUBCUT SCH (20:18)
[2018-01-13] MEDS ORDERED: SIMETHICONE CHEW 125 MG TABLET PO PRN (22:02)
[2018-01-13] MEDS: MORPHINE 4 MG/1 ML VIAL IV PRN (22:13)
[2018-01-14] MEDS: ALBUTEROL/IPRATROPIUM 3 ML NEB RESP TX SCH ×6 (03:43→23:20)
[2018-01-14 04:20] LABS: Basophils # 0.1 10*3/uL (0.0-0.2); Basophils % 0.3 % (0.0-0.8); Eosinophils # 0.1 10*3/uL (0.0-0.87); Eosinophils % 0.7 % (0.00-10.9); Hematocrit 32.7 VOL% (35.7-47.0); Hemoglobin 10.2 GM/DL (12.0-16.0); Immature Granulocytes % 0.8 %; Immature Granulocytes Absolute 0.15 #; Lymphocytes # 2.4 10*3/uL (1.4-4.0); Lymphocytes % 12.4 % (21.3-54.2); Mean Corpuscular HGB Conc 31.2 GM/DL (32-36); Mean Corpuscular Hemoglobin 29 PG (27-34); Mean Corpuscular Volume 94.2 FL (87-102); Mean Platelet Volume 11.5 FL (9.6-12.0); Monocytes # 1.4 10*3/uL (0.11-0.8); Monocytes % 7.3 % (1.7-12.7); Neutrophils # 15.3 10*3/uL (1.4-7.4); Neutrophils % 78.5 % (38.7-73.9); Platelet Count 309 T/CUMM (130-400); Red Blood Count 3.47 MC/CUMM (3.8-5.5); Red Cell Distribution Width 17.5 % (9.3-17.3); White Blood Count 19.5 T/CUMM (4-12)
[2018-01-14 04:40] LABS: Calcium 8.7 MG/DL (8.5-10.1); Potassium 3.6 MMOL/L (3.5-5.1)
[2018-01-14] MEDS: BUDESONIDE 0.5 MG/2 ML NEB RESP TX SCH ×2 (07:15→20:24)
[2018-01-14] MEDS: LINEZOLID INJ 600 MG in PREMIX 1 EACH IV SCH ×2 (08:19→20:42)
[2018-01-14] MEDS: SODIUM CHLORIDE 0.9% 1,000 ML IV SCH (08:19)
[2018-01-14] MEDS: ASPIRIN EC 325 MG TABLET PO SCH (08:20)
[2018-01-14] MEDS: amLODIPine 10 MG TABLET PO SCH (08:20)
[2018-01-14] MEDS: LOSARTAN 50 MG TABLET PO SCH (08:20)
[2018-01-14] MEDS: PRIMIDONE 50 MG TABLET PO SCH ×3 (08:20→20:44)
[2018-01-14] MEDS: NEBIVOLOL 10 MG TABLET PO SCH (08:20)
[2018-01-14] MEDS: hydrALAZINE 25 MG TABLET PO SCH ×3 (08:21→20:44)
[2018-01-14] MEDS: ENOXAPARIN 40 MG/0.4 ML SYRINGE SUBCUT SCH (09:04)
[2018-01-14] MEDS: FLUCONAZOLE 200 MG TABLET PO SCH (09:05)
[2018-01-15] MEDS: ALBUTEROL/IPRATROPIUM 3 ML NEB RESP TX SCH ×7 (03:10→23:13)
[2018-01-15 04:57] LABS: Basophils # 0.1 10*3/uL (0.0-0.2); Basophils % 0.5 % (0.0-0.8); Eosinophils # 0.4 10*3/uL (0.0-0.87); Eosinophils % 2.8 % (0.00-10.9); Hemoglobin 9.8 GM/DL (12.0-16.0); Immature Granulocytes % 0.6 %; Immature Granulocytes Absolute 0.09 #; Lymphocytes # 2.1 10*3/uL (1.4-4.0); Lymphocytes % 13.7 % (21.3-54.2); Mean Corpuscular HGB Conc 32.7 GM/DL (32-36); Mean Corpuscular Hemoglobin 29 PG (27-34); Mean Corpuscular Volume 90.1 FL (87-102); Mean Platelet Volume 10.8 FL (9.6-12.0); Monocytes # 1.3 10*3/uL (0.11-0.8); Monocytes % 8.3 % (1.7-12.7); Neutrophils # 11.2 10*3/uL (1.4-7.4); Neutrophils % 74.1 % (38.7-73.9); Platelet Count 274 T/CUMM (130-400); Red Blood Count 3.33 MC/CUMM (3.8-5.5); Red Cell Distribution Width 17.3 % (9.3-17.3); White Blood Count 15.1 T/CUMM (4-12)
[2018-01-15 05:21] LABS: Calcium 8.1 MG/DL (8.5-10.1); Osmolality,Calculated 287.1 MOS/KG (273-304); Potassium 3.4 MMOL/L (3.5-5.1)
[2018-01-15] MEDS: BUDESONIDE 0.5 MG/2 ML NEB RESP TX SCH ×2 (07:52→18:56)
[2018-01-15] MEDS: ENOXAPARIN 40 MG/0.4 ML SYRINGE SUBCUT SCH (08:42)
[2018-01-15] MEDS: ASPIRIN EC 325 MG TABLET PO SCH (08:43)
[2018-01-15] MEDS: amLODIPine 10 MG TABLET PO SCH (08:43)
[2018-01-15] MEDS: PRIMIDONE 50 MG TABLET PO SCH ×3 (08:43→21:27)
[2018-01-15] MEDS: FLUCONAZOLE 200 MG TABLET PO SCH (08:43)
[2018-01-15] MEDS: hydrALAZINE 25 MG TABLET PO SCH ×3 (08:43→21:27)
[2018-01-15] MEDS: NEBIVOLOL 10 MG TABLET PO SCH (08:43)
[2018-01-15] MEDS: LOSARTAN 50 MG TABLET PO SCH (08:43)
[2018-01-15] MEDS: SODIUM CHLOR 0.9% KCL 20 MEQ 20 MEQ/1,000 ML BAG IV SCH (08:44)
[2018-01-15] MEDS: SODIUM CHLORIDE 0.9% 1,000 ML IV SCH (08:45)
[2018-01-15] MEDS: LINEZOLID INJ 600 MG in PREMIX 1 EACH IV SCH ×2 (08:55→21:26)
[2018-01-15] MEDS ORDERED: FUROSEMIDE 40 MG/4 ML VIAL IM ONE (19:23)
[2018-01-15] MEDS ORDERED: FUROSEMIDE 40 MG/4 ML VIAL IV ONE (19:41)
[2018-01-15] MEDS ORDERED: ALPRAZolam 0.5 MG TABLET PO ONE (19:56)
[2018-01-15] MEDS ORDERED: ALPRAZolam 0.25 MG TABLET ONE (20:00)
[2018-01-16] MEDS: ALBUTEROL/IPRATROPIUM 3 ML NEB RESP TX SCH ×5 (02:49→19:07)
[2018-01-16] MEDS: SODIUM CHLOR 0.9% KCL 20 MEQ 20 MEQ/1,000 ML BAG IV SCH (05:21)
[2018-01-16 05:47] LABS: Basophils # 0.1 10*3/uL (0.0-0.2); Basophils % 0.4 % (0.0-0.8); Eosinophils # 0.3 10*3/uL (0.0-0.87); Hematocrit 28.9 VOL% (35.7-47.0); Hemoglobin 9.5 GM/DL (12.0-16.0); Immature Granulocytes % 0.7 %; Immature Granulocytes Absolute 0.12 #; Lymphocytes # 2.1 10*3/uL (1.4-4.0); Lymphocytes % 12.9 % (21.3-54.2); Mean Corpuscular HGB Conc 32.9 GM/DL (32-36); Mean Corpuscular Hemoglobin 29 PG (27-34); Mean Corpuscular Volume 89.5 FL (87-102); Mean Platelet Volume 11.1 FL (9.6-12.0); Monocytes # 1.3 10*3/uL (0.11-0.8); Monocytes % 7.8 % (1.7-12.7); Neutrophils # 12.4 10*3/uL (1.4-7.4); Neutrophils % 76.2 % (38.7-73.9); Platelet Count 280 T/CUMM (130-400); Red Blood Count 3.23 MC/CUMM (3.8-5.5); Red Cell Distribution Width 17.2 % (9.3-17.3); White Blood Count 16.2 T/CUMM (4-12)
[2018-01-16 06:16] LABS: Calcium 8.4 MG/DL (8.5-10.1); Osmolality,Calculated 285.4 MOS/KG (273-304); Potassium 3.2 MMOL/L (3.5-5.1)
[2018-01-16] MEDS: POTASSIUM CHLORIDE 20 MEQ TABLET PO PRN ×3 (06:35→14:44)
[2018-01-16] MEDS: BUDESONIDE 0.5 MG/2 ML NEB RESP TX SCH ×2 (07:15→19:07)
[2018-01-16] MEDS ORDERED: FUROSEMIDE 40 MG/4 ML VIAL IM ONE (08:34)
[2018-01-16] MEDS: ENOXAPARIN 40 MG/0.4 ML SYRINGE SUBCUT SCH (09:05)
[2018-01-16] MEDS: POTASSIUM CHLORIDE 20 MEQ TABLET PO SCH (09:06)
[2018-01-16] MEDS: FLUCONAZOLE 200 MG TABLET PO SCH (09:06)
[2018-01-16] MEDS: PRIMIDONE 50 MG TABLET PO SCH ×3 (09:06→20:41)
[2018-01-16] MEDS: NEBIVOLOL 10 MG TABLET PO SCH (09:06)
[2018-01-16] MEDS: LOSARTAN 50 MG TABLET PO SCH (09:06)
[2018-01-16] MEDS: ASPIRIN EC 325 MG TABLET PO SCH (09:06)
[2018-01-16] MEDS: amLODIPine 10 MG TABLET PO SCH (09:06)
[2018-01-16] MEDS ORDERED: FUROSEMIDE 40 MG/4 ML VIAL IV ONE (09:08)
[2018-01-16] MEDS ORDERED: POTASSIUM CHLORIDE RIDER 10 MEQ in PREMIX 1 EACH IV PRN (10:39)
[2018-01-16] MEDS ORDERED: MAGNESIUM SULF RIDER 2 GM in PREMIX 1 EACH IV PRN (10:39)
[2018-01-16] MEDS: MINOXIDIL 2.5 MG TABLET PO SCH ×2 (14:41→20:41)
[2018-01-16] MEDS: LINEZOLID INJ 600 MG in PREMIX 1 EACH IV SCH ×2 (14:41→20:41)
[2018-01-16] MEDS: ALPRAZolam 0.5 MG TABLET PO PRN ×2 (14:43→20:41)
[2018-01-17] MEDS: ALBUTEROL/IPRATROPIUM 3 ML NEB RESP TX SCH ×7 (00:17→23:56)
[2018-01-17] MEDS: SODIUM CHLOR 0.9% KCL 20 MEQ 20 MEQ/1,000 ML BAG IV SCH (03:40)
[2018-01-17 05:21] LABS: Basophils # 0.1 10*3/uL (0.0-0.2); Basophils % 0.4 % (0.0-0.8); Eosinophils # 0.6 10*3/uL (0.0-0.87); Eosinophils % 3.1 % (0.00-10.9); Hematocrit 29.7 VOL% (35.7-47.0); Hemoglobin 9.3 GM/DL (12.0-16.0); Immature Granulocytes % 0.6 %; Immature Granulocytes Absolute 0.11 #; Lymphocytes # 2.7 10*3/uL (1.4-4.0); Lymphocytes % 15.2 % (21.3-54.2); Mean Corpuscular HGB Conc 31.3 GM/DL (32-36); Mean Corpuscular Hemoglobin 29 PG (27-34); Mean Corpuscular Volume 92.8 FL (87-102); Mean Platelet Volume 11.5 FL (9.6-12.0); Monocytes # 1.4 10*3/uL (0.11-0.8); Monocytes % 7.8 % (1.7-12.7); Neutrophils % 72.9 % (38.7-73.9); Platelet Count 296 T/CUMM (130-400); Red Cell Distribution Width 17.1 % (9.3-17.3); White Blood Count 17.8 T/CUMM (4-12)
[2018-01-17 05:48] LABS: Calcium 8.1 MG/DL (8.5-10.1); Osmolality,Calculated 285.4 MOS/KG (273-304); Potassium 3.8 MMOL/L (3.5-5.1)
[2018-01-17] MEDS: BUDESONIDE 0.5 MG/2 ML NEB RESP TX SCH ×2 (07:00→19:06)
[2018-01-17] MEDS: POTASSIUM CHLORIDE 20 MEQ TABLET PO SCH (08:06)
[2018-01-17] MEDS: MINOXIDIL 2.5 MG TABLET PO SCH (08:06)
[2018-01-17] MEDS: LOSARTAN 50 MG TABLET PO SCH (08:06)
[2018-01-17] MEDS: PRIMIDONE 50 MG TABLET PO SCH ×2 (08:06→16:10)
[2018-01-17] MEDS: FLUCONAZOLE 200 MG TABLET PO SCH (08:06)
[2018-01-17] MEDS: ENOXAPARIN 40 MG/0.4 ML SYRINGE SUBCUT SCH (08:07)
[2018-01-17] MEDS: LINEZOLID INJ 600 MG in PREMIX 1 EACH IV SCH ×2 (08:07→20:21)
[2018-01-17] MEDS: amLODIPine 10 MG TABLET PO SCH (08:07)
[2018-01-17] MEDS: NEBIVOLOL 10 MG TABLET PO SCH (08:07)
[2018-01-17] MEDS: ASPIRIN EC 325 MG TABLET PO SCH (08:09)
[2018-01-17] MEDS ORDERED: DEXAMETHASONE 10 MG/1 ML VIAL IV ONE (09:58)
[2018-01-17] MEDS ORDERED: DIAZEPAM 5 MG TABLET PO ONE (12:00)
[2018-01-17] MEDS ORDERED: diphenhydrAMINE CAP 25 MG CAPSULE PO ONE (12:00)
[2018-01-17] MEDS ORDERED: SODIUM CHLORIDE 0.45% 1,000 ML IV SCH (12:00)
[2018-01-17] MEDS ORDERED: ALTEPLASE IV ONE ×2 (12:23)
[2018-01-17 13:47] LABS: INR 1.1; PT Patient Result 11.5 SECS; Partial Thromboplastin Time 28.7 SECS (0-40)
[2018-01-18] MEDS: ALBUTEROL/IPRATROPIUM 3 ML NEB RESP TX SCH ×5 (03:55→19:15)
[2018-01-18 05:56] LABS: Basophils % 0.2 % (0.0-0.8); Hematocrit 27.8 VOL% (35.7-47.0); Hemoglobin 9.1 GM/DL (12.0-16.0); Immature Granulocytes % 0.7 %; Immature Granulocytes Absolute 0.16 #; Lymphocytes # 2.3 10*3/uL (1.4-4.0); Lymphocytes % 9.5 % (21.3-54.2); Mean Corpuscular HGB Conc 32.7 GM/DL (32-36); Mean Corpuscular Hemoglobin 29 PG (27-34); Mean Corpuscular Volume 88.8 FL (87-102); Mean Platelet Volume 11.6 FL (9.6-12.0); Neutrophils # 19.9 10*3/uL (1.4-7.4); Neutrophils % 81.6 % (38.7-73.9); Platelet Count 335 T/CUMM (130-400); Red Blood Count 3.13 MC/CUMM (3.8-5.5); Red Cell Distribution Width 17.3 % (9.3-17.3); White Blood Count 24.3 T/CUMM (4-12)
[2018-01-18 06:03] LABS: Calcium 8.3 MG/DL (8.5-10.1); Osmolality,Calculated 294.1 MOS/KG (273-304); Potassium 4.7 MMOL/L (3.5-5.1)
[2018-01-18] MEDS: BUDESONIDE 0.5 MG/2 ML NEB RESP TX SCH ×2 (07:12→19:15)
[2018-01-18 07:50] LABS: Hypochromasia 1+; Lymphocytes 8 % (20-55); Platelet Estimate Adequate; Segmented Neutrophils 87 % (50-85); Total Cells Counted 100
[2018-01-18] MEDS ORDERED: FLUCONAZOLE INJ 100 MG in IV BAG 1 EACH IV SCH (09:00)
[2018-01-18] MEDS ORDERED: LEVOFLOXACIN INJ 250 MG in PREMIX 1 EACH IV SCH (09:00)
[2018-01-18] MEDS: LINEZOLID INJ 600 MG in PREMIX 1 EACH IV SCH ×2 (09:37→20:45)
[2018-01-18] MEDS ORDERED: DEXTROSE 50% 25 GM/50 ML VIAL IV PRN (15:16)
[2018-01-18] MEDS ORDERED: GLUCAGON 1 MG VIAL IM PRN (15:16)
[2018-01-18] MEDS ORDERED: INSULIN REGULAR 100 UNIT/ML SUBCUT SCH (18:00)
[2018-01-18 23:25] VITALS: BP 47/26
== END 2018-01-18 11:10 | disposition expired ==
LOC: N.TELES 16:28 → N.CC 22:27 → N.TELES 01-14 17:41 → N.CC 01-17 09:36
PROVIDERS: ADMIT Family Medicine; ATTEND Family Medicine